=== PATIENT | male | born 1965 | race Caucasian/White ===

== ENCOUNTER 2021-02-23 06:57 | Outpatient (REF) | payer OTHER, SELFPAY ==
[2021-02-23 12:50] LABS: TSH reflex Free T4 4.25 uIU/mL (0.32-4.0)
[2021-02-23 13:28] LABS: Free T4 (Free Thyroxine) 0.75 ng/dL (0.71-1.85)
== END 2021-02-23 06:58 | disposition home or self-care (01) ==
LOC: HO.HMGCLDS 06:57
PROVIDERS: PCP Nurse Practitioner Family; Visit Provider Nurse Practitioner Family
DX: E03.9 Hypothyroidism, unspecified (principal)
CPT/HCPCS: 36415; 84439; 84443

== ENCOUNTER → 2021-04-07 15:49 | Outpatient (BNVA) | payer OTHER, SELFPAY | PROVIDERS: PCP Nurse Practitioner Family; Visit Provider Urology | DX: Z13.89 Encounter for screening for other disorder (principal) | CPT/HCPCS: Q3014 ==

== ENCOUNTER → 2021-06-02 09:09 | Outpatient (BNVA) | payer OTHER, SELFPAY | PROVIDERS: PCP Nurse Practitioner Family; Visit Provider Urology | DX: N52.9 Male erectile dysfunction, unspecified (principal); N43.40 Spermatocele of epididymis, unspecified | CPT/HCPCS: 99212 ==

== ENCOUNTER 2021-07-18 06:00 | Day surgery (SDC) | payer OTHER, SELFPAY ==
[2021-07-13 11:11] VITALS: BMI 31.6
[2021-07-18] VITALS (11 sets, daily range): BP systolic 122–149; BP diastolic 77–91; PULSE 49–75; RESP 16–20; TEMP 36–37; O2SAT 96–98
[2021-07-18] MEDS: Lactated Ringers 500 ML 20 ML IVCONT ×2 (06:45)
--- NOTE | 2021-07-18 07:34 | MHC.SHP ---
Pre-Procedural Eval Section A Date of Service: 07/18/21 Section B Chief Complaint: cyst of scrotum Details of Present Illness: Right epididymal cyst Relevant Social History: None Present Medications: see Short Stay Collaborative assessment Medical History: No relevant PMH History of Previous Operations: No relevant previous surgery Allergies: Allergies Allergy/AdvReac Type Severity Reaction Status Date / Time cisplatin [CISPLATIN] Allergy Severe ANAPHYLAXIS Verified 07/18/21 06:12 adhesive tape [ADHESIVE TAPE] Allergy Intermediate BLISTER/LESTER Verified 07/18/21 06:12 H Sulfa (Sulfonamide Allergy Unknown unknown Verified 07/18/21 06:12 Antibiotics) oxycodone [OXYCODONE] AdvReac Intermediate GI UPSET Verified 07/18/21 06:12 Review of Systems Sugical H&P ROS: Negative: Constitution, Cardiovascular, Respiratory, Neurological, Psychiatric, Hem-Onc, Allergic/Immunologic, Gastrointestinal, Genitourinary, Musculoskeletal, Integumentary, Endocrine and Eyes/Ears/Nose/Throat Exam Surgical H&P Exam: Normal: HEENT, Normal: Heart, Normal: Lungs, Normal: Extremities, Normal: Abdomen, Normal: Skin and Normal: Neurological Plan Diagnosis/Plan: Unchanged (Excision of right epididymal cyst) I have reviewed the history and physical and performed a pertinent physical examination on my patient. No changes have occurred unless specified.
--- NOTE | 2021-07-18 07:54 | P.CONAN_ITS ---
COUNTS INCLUDE 234 BEDS AT THE [facility] Active Problems Active Problems: All Active Problems (Updated 07/13/21 @ 11:13 by Kym tong RN) Hypothyroid (Acute) Right knee pain (Acute) Spermatocele (Acute) Erectile dysfunction (Acute) Past Medical History Medical History Cancer of tongue Hypothyroid Family History Family history of problems with anesthesia: No Surgical History Surgical History H/O colonoscopy Hx of tonsillectomy S/P cervical spinal fusion History of Problems with Anesthesia: No Social History Social History Alcohol intake: former Patient Tobacco Use Status: Tobacco use Unknown Advance Directives Information Provided: No Meds Allergies Allergy/AdvReac Type Severity Reaction Status Date / Time cisplatin [CISPLATIN] Allergy Severe ANAPHYLAXIS Verified 07/18/21 06:12 adhesive tape [ADHESIVE TAPE] Allergy Intermediate BLISTER/LESTER Verified 07/18/21 06:12 H Sulfa (Sulfonamide Allergy Unknown unknown Verified 07/18/21 06:12 Antibiotics) oxycodone [OXYCODONE] AdvReac Intermediate GI UPSET Verified 07/18/21 06:12 Active Medications: Current Medications Generic Name Dose Route Start Last Admin Trade Name Freq PRN Reason Stop Dose Admin Cefazolin Sodium/Dextrose 2 gm in 50 mls @ 100 mls/hr 07/18/21 07:35 Ancef IV 07/18/21 08:04 PREOP ONE Lactated Ringer's 500 mls @ 20 mls/hr 07/18/21 08:00 Lr IVCONT .Q24H [facility] Home Medications Medication Instructions Recorded Confirmed Last Taken Type levothyroxine 25 mcg capsule 25 mcg PO DAILY 06/02/21 Unknown History Exam Exam Date and Time: July 18, 2021 0754 Height,Weight and Vital Signs: Height 5 ft 9 in Weight 97.069 kg Last Vital Signs Temp 98.6 F 07/18/21 06:23 Pulse 59 07/18/21 06:23 Resp 16 07/18/21 06:23 BP 122/77 07/18/21 06:23 Pulse Ox 97 07/18/21 06:23 Airway Mallampati Class: II TM Dist: >3cm Neck ROM: Full Assessment and Plan Assessment Anesthesia Assessment: Anesthesia Plan Discussed and Chart Reviewed Final Anesthetic Review Family History of Problems with Anesthesia: No History of Problems with Anesthesia: No NPO: Yes ASA Class: III Final Preanesthetic Review: No Changes in Pt Med Stat, Meds/Allgs Chart Reviewed, Consent Obtained/Reviewed and Anes Risks/Benef Reviewed Patient Risk: Intermediate Procedure Risk: Low Assessment/Block/Sedation in SS: Assess/Block/Sedation-SS Anesthetic Plan Anesthetic Plan: GA Disposition: Standard PACU
--- NOTE | 2021-07-18 08:22 | P.OP_ITS ---
Operative Note Operative Note Date of Service: 07/18/21 Narrative: PreOperative Diagnosis: Right epididymal cyst Post Operative Diagnosis: Right head of epididymis cyst with calcifications scarring Procedure: Partial epididymectomy right side Surgeon: Dr Da Forbes Anesthesia: General Indications for procedure: Persistent pain on right head of the epididymis despite conservative therapy over a number of years. Calcification with small cyst to be noted on ultrasound. Recommendation for excision. Understands that this may not resolve painful episodes. Procedure: After informed consent was verified the patient was brought to the operating room and placed in a supine position. Anesthesia was administered per protocol. Patient was placed in a supine position and prepped and draped in sterile fashion. Safety pause time-out was performed. Local anesthetic infiltrated for 3 cm in a transverse fashion on the right hemiscrotum. Incision made through the skin down through the subcutaneous layer to the tunica vaginalis. The tunica was opened in the testicle was delivered. The head of the epididymis had palpable scarring and calcification. Careful dissection was performed isolating the perforating vessel coming from the cord and from the testis into the head of the epididymis. The this was divided after tying with 3-0 Vicryl suture. The epididymis head was then isolated with 3-0 Vicryl suture and removed and sent for specimen. Small oozing areas were cauterized. A small piece of Surgicel was placed in order to obtain full hemostasis. The tunica vaginalis was reapproximated with a running 3-0 Vicryl suture. The testicle was placed back in its dependent portion the scrotum. Deeper layers of the scrotal musculature were reapproximated using a running 3-0 Vicryl suture. Skin edges were reapproximated using interrupted 3-0 chromic. He tolerated procedure well was extubated in operating room transferred in st able condition to the recovery area Pathology: Epididymal head Drains: None
[2021-07-18] MEDS: fentaNYL citrate/PF 100 MCG/2 ML VIAL 50 MCG IVPUSH ×2 (08:44→08:57)
[2021-07-18] MEDS: traMADoL HCL 50 MG TABLET PO (08:49)
[2021-07-18] MEDS: Acetaminophen 325 MG TABLET 650 MG PO (08:51)
== END 2021-07-18 10:26 | disposition home or self-care (01) ==
PROVIDERS: PCP Nurse Practitioner Family; Visit Provider Urology
PROC: (CPT 54840; principal; 2021-07-18 07:30)
DX: N43.40 Spermatocele of epididymis, unspecified (principal); N52.9 Male erectile dysfunction, unspecified; Z79.899 Other long term (current) drug therapy; Z88.2 Allergy status to sulfonamides; Z88.8 Allergy status to other drugs, medicaments and biological substances; Z85.810 Personal history of malignant neoplasm of tongue
CPT/HCPCS: 54840; 88304; J0690; J1100; J2250; J2405; J3010

== ENCOUNTER → 2021-07-27 14:54 | Outpatient (BNVA) | payer OTHER, SELFPAY | PROVIDERS: PCP Nurse Practitioner Family; Visit Provider Urology | DX: N50.819 Testicular pain, unspecified (principal) | CPT/HCPCS: 99212 ==

== ENCOUNTER → 2021-08-17 15:30 | Outpatient (BNVA) | payer OTHER, SELFPAY | PROVIDERS: PCP Nurse Practitioner Family; Visit Provider Urology | DX: N50.819 Testicular pain, unspecified (principal) | CPT/HCPCS: 99212 ==

== ENCOUNTER 2021-09-01 09:17 | Outpatient (REF) | payer OTHER, SELFPAY ==
--- NOTE | ~2021-09-01 | XR_ITS ---
EXAMINATION: XR CERVICAL SPINE CLINICAL INFORMATION: Cervicalgia COMPARISON: None TECHNIQUE: 3 views of the cervical spine were obtained. FINDINGS: Status post cervical spine surgery with anterior fusion and discectomy at the C5-C6 level. No acute fracture is identified. No abnormal prevertebral soft tissue swelling is seen. There is approximately 2 mm of degenerative subluxation C3 anteriorly on C4. Marginal spurring is seen at multiple levels. There is mild narrowing of the C6-C7 disc space. Facet degenerative change with spurring and sclerosis is seen C3-C5 on the left and at the C3-C4 level on the right. Bilateral carotid artery calcification is present. XR/XR cervical spine 3V IMPRESSION: Multilevel degenerative change of the cervical spine. No acute cervical spine fracture or significant soft tissue swelling appreciated. Status post anterior fusion and discectomy at the C5-C6 level.
== END 2021-09-01 09:18 | disposition home or self-care (01) ==
LOC: HO.HMGCX 09:17
PROVIDERS: PCP Nurse Practitioner Family; Visit Provider Physician Assistant Medical
DX: M54.2 Cervicalgia (principal)
CPT/HCPCS: 72040

== ENCOUNTER 2021-09-29 12:07 | Emergency (ER) | payer OTHER, SELFPAY ==
--- NOTE | ~2021-09-29 | CT_ITS ---
EXAMINATION: CT ABDOMEN AND PELVIS WITH CONTRAST CLINICAL INFORMATION: Right-sided abdominal pain, ecchymosis. COMPARISON: None TECHNIQUE: Multidetector volumetric images were obtained from the superior aspect of the liver through the pubic symphysis following administration 85 mL of Omnipaque 350 intravenous contrast. Sagittal and coronal reformatted images were obtained on the technologist's workstation. Oral contrast: No This CT examination was performed using dose optimization techniques as appropriate, variously including the following: *Automated exposure control *Adjustment of mA and/or kV according to patient size (this includes techniques or standardized protocols for targeted exams where dose is matched to indication/reason for exam; i.e. extremities or head) *Use of iterative reconstruction technique DLP: 737 mGy-cm FINDINGS: LUNG BASES: The visualized lung bases are unremarkable. LIVER, GALLBLADDER, AND BILIARY TREE: The liver is normal in size, shape, and attenuation. No focal hepatic lesion or biliary ductal dilatation is present. The gallbladder is unremarkable with no evidence of radiopaque gallstones, gallbladder wall thickening, or obvious pericholecystic inflammatory changes. PANCREAS: Unremarkable. SPLEEN: Unremarkable. ADRENAL GLANDS: Unremarkable. KIDNEYS AND URETERS: The kidneys are normal in size, shape, and attenuation. There is mild hydroureteronephrosis with no obstructive radiopaque calculi. However there is a soft tissue mass in the right bladder at the right UVJ junction. There is mild mural thickening of the right distal ureter, best visualized on coronal projection image 67/5. There is mild right perinephric stranding. The left kidney is unremarkable. No hydronephrosis seen. BLADDER: There is a soft tissue mass right lateral bladder measuring 2.2 cm x 1.1 cm at the insertion of right distal ureter and a likely cause for hydronephrosis. GASTROINTESTINAL TRACT: The small and large bowel are unremarkable. The appendix is unremarkable. ABDOMINAL WALL: No significant hernia is appreciated. LYMPH NODES: Normal. VASCULAR: Unremarkable. PELVIC VISCERA: There are scattered phleboliths in the left pelvis. There is a large size lipoma of left iliacus muscle. It measured approximately 14 cm in length and 4.3 cm in AP dimension inferiorly. Right vasectomy libby is noted. OSSEOUS STRUCTURES: There is degenerative disc changes with vacuum disc phenomena and moderate ventral and mild posterior spondylosis L5-S1 disc level. No aggressive lytic or sclerotic process seen. CT/CT abdomen pelvis w con IMPRESSION: Right lateral bladder wall mass at the right UV junction resulting in mild hydroureteronephrosis. There is mild distal ureteral wall thickening as well. Recommend cystoscopy for further evaluation. Large left iliacus muscle lipoma. Fleischner guidelines were followed.
--- NOTE | ~2021-09-29 | US_ITS ---
EXAMINATION: US SCROTUM CLINICAL INFORMATION: Right scrotal pain x1 week COMPARISON: None TECHNIQUE: A sonogram of the scrotum was performed assessing carrington-scale appearance and color Doppler flow. Spectral Doppler analysis of the arterial and venous flow were performed in the testes bilaterally. FINDINGS: RIGHT: Right testicle measures 5.0 x 2.5 x 3.9 cm, volume 24.8 mL. No focal testicular parenchymal lesions are visualized. Spectral Doppler analysis of the arterial and venous flow is normal in the right testis. Right epididymal head is normal in size with a small anechoic cyst in the epididymal head measuring 0.9 x 0.6 0.9 cm with small septation. No right hydrocele or varicocele is seen. Right epididymal Doppler flow is normal. LEFT: Left testicle measures 5.2 x 2.8 x 3.4 cm, volume 25.6 mL. No focal testicular parenchymal lesions are visualized. Spectral Doppler analysis of the arterial and venous flow is normal in the left testis. Left epididymal head is normal in size. No left hydrocele or varicocele is seen. Left epididymal Doppler flow is normal. US/US scrotum IMPRESSION: Right epididymal head cyst. Otherwise unremarkable ultrasound scrotum exam.
--- NOTE | ~2021-09-29 | US_ITS ---
EXAMINATION: US SCROTUM CLINICAL INFORMATION: Right scrotal pain x1 week COMPARISON: None TECHNIQUE: A sonogram of the scrotum was performed assessing carrington-scale appearance and color Doppler flow. Spectral Doppler analysis of the arterial and venous flow were performed in the testes bilaterally. FINDINGS: RIGHT: Right testicle measures 5.0 x 2.5 x 3.9 cm, volume 24.8 mL. No focal testicular parenchymal lesions are visualized. Spectral Doppler analysis of the arterial and venous flow is normal in the right testis. Right epididymal head is normal in size with a small anechoic cyst in the epididymal head measuring 0.9 x 0.6 0.9 cm with small septation. No right hydrocele or varicocele is seen. Right epididymal Doppler flow is normal. LEFT: Left testicle measures 5.2 x 2.8 x 3.4 cm, volume 25.6 mL. No focal testicular parenchymal lesions are visualized. Spectral Doppler analysis of the arterial and venous flow is normal in the left testis. Left epididymal head is normal in size. No left hydrocele or varicocele is seen. Left epididymal Doppler flow is normal. US/US scrotum doppler IMPRESSION: Right epididymal head cyst. Otherwise unremarkable ultrasound scrotum exam.
[2021-09-29 12:10] VITALS: BP 169/97; PULSE 67; RESP 18; TEMP 36.7; O2SAT 100; BMI 30.2
--- NOTE | 2021-09-29 12:40 | ED_ITS ---
HPI - Abdominal Pain General Chief Complaint: Abdominal Pain Stated Complaint: abd pain Time Seen by Provider: 09/29/21 13:45 Source: patient Mode of arrival: ambulatory Limitations: no limitations History of Present Illness HPI narrative: Return for EMS with past medical history cure throat cancer and G-tube in the past presents to the ED for right lower quadrant abdominal pain for the past 4 days. Patient states no nausea or vomiting. Patient states last /4 days before started having lower abdominal pain that began this past Sunday, patient fell down stairs and hit right lower flank abdomen on and a guard rail and had huge bruise but had no pain. Patient was taking Motrin at that time for tooth, which might have gemma tge pain. and patient states hematoma actually improved. Patient states also some testicular discomfort off and on for 2 months since with surgical procedure for epidmidpimal cysts. Related Data Previous Rx's Medication Instructions Recorded bupropion HCl 150 mg tablet,12 hr 150 mg PO BID #180 tab 12/21/20 sustained-release sildenafil 100 mg tablet 100 mg PO DAILY PRN 30 Days #30 tab 06/02/21 tizanidine 2 mg tablet 2 mg PO BEDTIME PRN 30 Days #30 tab 07/17/21 levothyroxine 25 mcg capsule 25 mcg PO DAILY 90 Days #90 cap 08/21/21 cyclobenzaprine 5 mg tablet 5 mg PO BID PRN 14 Days #14 tab 09/07/21 ibuprofen 600 mg tablet 600 mg PO Q8H PRN #90 tab 09/07/21 tramadol 50 mg tablet 50 mg PO TID PRN #9 tab 09/29/21 Allergies Allergy/AdvReac Type Severity Reaction Status Date / Time cisplatin [CISPLATIN] Allergy Severe ANAPHYLAXIS Verified 09/29/21 12:10 adhesive tape [ADHESIVE TAPE] Allergy Intermediate BLISTER/LESTER Verified 09/29/21 12:10 H Sulfa (Sulfonamide Allergy Unknown unknown Verified 09/29/21 12:10 Antibiotics) oxycodone [OXYCODONE] AdvReac Intermediate GI UPSET Verified 09/29/21 12:10 Review of Systems Review of Systems Yes all other systems are reviewed and are negative Constitutional: Reports as per HPI and Reports no additional constitutional complaints Eyes: Reports as per HPI and Reports no additional eye complaints Reports system reviewed and no additional complaints, except as documented and Reports as per HPI Cardiovascular: Reports as per HPI and Reports no additional cardiovascular complaints Respiratory: Reports as per HPI and Reports no additional respiratory complaints Gastrointestinal: Reports as per HPI, Reports no additional gastrointestinal complaints and Reports abdominal pain (RLQ. RIght flank ecchymosis) Musculoskeletal: Reports no additional musculoskeletal complaints and Reports as per HPI Reports system reviewed and no additional complaints, except as documented and Reports as per HPI Psychiatric: Reports no additional psychiatric complaints and Reports as per HPI Physical Exam Vital Signs: Vital Signs: Last Vital Signs Temp 98.0 F 09/29/21 12:10 Pulse 64 09/29/21 16:39 Resp 15 09/29/21 16:39 BP 129/77 09/29/21 16:39 Pulse Ox 99 09/29/21 16:39 Body Mass Index 30.2 Const: General: cooperative, healthy appearing, comfortable, no acute distres s, well developed, alert, awake and Physically active; No acute distress Orientation/consciousness: patient oriented x3 HENMT: Head: Yes normal to inspection, Yes No palpable skull fracture present, Yes normocephalic, Yes atraumatic and No abrasion Eyes: General: appearance normal, both eyes and all related structures Neck: Neck: Yes normal visual inspection, Yes full ROM, Yes no lymphadenopathy, Yes no meningeal signs, Yes trachea midline, Yes supple, No anterior neck swelling and No tender Chest: Chest palpation & inspection: normal inspection of the chest and normal palpation of entire chest wall Resp: Effort & Inspection: normal respiratory effort and able to speak in complete sentences Auscultation: clear to auscultation bilaterally Cardio: Jugular venous distension: no JVD Heart sounds: S1 normal heart sound present and S2 normal heart sound present GI: Inspection: Yes normal to inspection Palpation (GI): Tenderness to palpation present (GI) (positive for lower right flank ecchymosis. ) in the RLQ, no guarding and not rigid : Other: Negative for penile discharge, penile lesions, testicular swelling/tenderness, or blurred from urethral meatus. General: Yes no CVA tenderness Penis: normal penis and circumcised Scrotum: scrotum normal Testes: Testes normal and testicular lie normal Back/Spine/Pelvis: Back: no CVA tenderness Back/spine/pelvis image: 1. Might lower flank positive for ecchymosis/improving hematoma. states patient has bruised actually been improved since fall. not Tender an area of bruise. Skin: General skin exam: no rashes or lesions noted and elasticity normal Neuro: General: patient oriented x3, gait normal, no meningeal signs and CN's II-XI intact bilaterally Cranial nerves: Yes CN's II-XII intact bilaterally Extrem: General: Yes normal to inspection and Yes full ROM Psych: Appearance: grossly normal, well kempt and not disheveled Course Course Course Narrative: Patient states having small drops of 2 past couple days and constipated. Will do KUB. Due to patient have right lower quadrant tenderness and flank ecchymosis patient will be sent for abdominal CT scan to rule out any trauma or appendicitis. Patient denies any chest pain and headache exam is normal. No need for chest or head the cervical spine imaging. Patient denies any dizziness nausea, vomiting, headache, head trauma, or taking any blood thinners. Reevaluation(s) Reevaluation #1: Scrotal ultrasound shows right epididymal cyst. Abdominal CT scan shows bladder mass. Patient made aware of bladder mass and informed to follow-up with his urologist. Patient states his urologist Dr. Forbes and he will call tomorrow for follow-up. UA negative for UTI. Kidney functions normal. Rest of CT scan negative for appendicitis any medical/surgical emergency. Time: 16:34 MDM - Abdominal Pain MDM Narrative Medical decision making narrative: Bladder mass Lab Data Result diagrams: 09/29/21 12:34 09/29/21 12:34 Labs: Lab Results 09/29/21 09/29/21 09/29/21 Range/Units 12:34 12:34 12:34 WBC 14.5 H (4.8-10.8) X10*3/uL RBC 4.23 L (4.60-5.80) X10*6/uL Hgb 14.3 (14.0-18.0) g/dl Hct 39.1 L (42.0-52.0) % MCV 92.4 (80.0-98.0) fL MCH 33.8 H (27.0-33.0) pg MCHC 36.6 H (31.0-36.0) g/dl RDW 11.7 (11.0-16.0) % Plt Count 244 (160-400) X10*3/uL MPV 9.7 (9.4-12.4) fL Immature Gran % (Auto) 0.6 H (0.0-0.4) % Neut % (Auto) 76.3 H (45-73) % Lymph % (Auto) 13.1 L (20-40) % [place] % (Auto) 8.7 (2-11) % Eos % (Auto) 1.0 (0-4) % Baso % (Auto) 0.3 (0-2) % Lymph # (Auto) 1.9 (1.2-4.9) X10*3/uL [place] # (Auto) 1.3 H (0.1-1.2) X10*3/uL Eos # (Auto) 0.2 (0.0-0.4) X10*3/uL Baso # (Auto) 0.1 (0.0-0.2) X10*3/uL Abs Immat Gran (auto) 0.09 H (0.00-0.03) X10*3/uL Absolute Neuts (auto) 11.1 H (2.0-8.3) x10*3/uL Absolute Nucleated RBC 0.000 (0.0-0.012) X10*3/uL Nucleated RBC % (auto) 0.0 (0.0-0.2) /100WBC PT 12.7 (9.9-13.0) SEC INR 1.1 (0.9-1.1) APTT 33.9 (24.1-38.0) SEC Sodium 136 (135-145) mmol/L Potassium 3.6 (3.3-5.1) mmol/L Chloride 101 (96-108) mmol/L Carbon Dioxide 24 (22-29) mmol/L Anion Gap 15 (12-20) BUN 14 (9-16) mg/dL Creatinine 1.39 (0.5-1.4) mg/dL Estim Creat Clear Calc 68.4 Estimated GFR 53 Random Glucose 109 (60-115) mg/dL Calcium 9.9 (8.4-10.2) mg/dL Total Bilirubin 0.8 (0.0-1.0) mg/dL Direct Bilirubin 0.3 (0.0-0.5) mg/dL AST 30 (5-37) U/L ALT 30 (0-40) U/L Alkaline Phosphatase 79 (39-117) U/L Total Protein 7.2 (6.5-8.0) g/dL Albumin 4.5 (3.5-5.0) g/dL Lipase 15 (8-78) U/L Urine Color Urine Appearance Urine pH (5.0-8.0) Ur Specific Kathryn (1.005-1.025) Urine Protein (NEG-TRACE) MG/DL Urine Glucose (UA) (NEG) MG/DL Urine Ketones (NEG) MG/DL Urine Blood (NEG) Urine Nitrite (NEG) Ur Leukocyte Esterase (NEG) Urine RBC (0) /HPF Urine WBC (0-4) /HPF Ur Squamous Epith Cells /LPF Urine Bacteria /LPF 09/29/21 Range/Units 12:34 WBC (4.8-10.8) X10*3/uL RBC (4.60-5.80) X10*6/uL Hgb (14.0-18.0) g/dl Hct (42.0-52.0) % MCV (80.0-98.0) fL MCH (27.0-33.0) pg MCHC (31.0-36.0) g/dl RDW (11.0-16.0) % Plt Count (160-400) X10*3/uL MPV (9.4-12.4) fL Immature Gran % (Auto) (0.0-0.4) % Neut % (Auto) (45-73) % Lymph % (Auto) (20-40) % [place] % (Auto) (2-11) % Eos % (Auto) (0-4) % Baso % (Auto) (0-2) % Lymph # (Auto) (1.2-4.9) X10*3/uL [place] # (Auto) (0.1-1.2) X10*3/uL Eos # (Auto) (0.0-0.4) X10*3/uL Baso # (Auto) (0.0-0.2) X10*3/uL Abs Immat Gran (auto) (0.00-0.03) X10*3/uL Absolute Neuts (auto) (2.0-8.3) x10*3/uL Absolute Nucleated RBC (0.0-0.012) X10*3/uL Nucleated RBC % (auto) (0.0-0.2) /100WBC PT (9.9-13.0) SEC INR (0.9-1.1) APTT (24.1-38.0) SEC Sodium (135-145) mmol/L Potassium (3.3-5.1) mmol/L Chloride (96-108) mmol/L Carbon Dioxide (22-29) mmol/L Anion Gap (12-20) BUN (9-16) mg/dL Creatinine (0.5-1.4) mg/dL Estim Creat Clear Calc Estimated GFR Random Glucose (60-115) mg/dL Calcium (8.4-10.2) mg/dL Total Bilirubin (0.0-1.0) mg/dL Direct Bilirubin (0.0-0.5) mg/dL AST (5-37) U/L ALT (0-40) U/L Alkaline Phosphatase (39-117) U/L Total Protein (6.5-8.0) g/dL Albumin (3.5-5.0) g/dL Lipase (8-78) U/L Urine Color YELLOW Urine Appearance CLEAR Urine pH 7.5 (5.0-8.0) Ur Specific Kathryn 1.015 (1.005-1.025) Urine Protein TRACE (NEG-TRACE) MG/DL Urine Glucose (UA) NEG (NEG) MG/DL Urine Ketones >=80 (NEG) MG/DL Urine Blood TRACE (NEG) Urine Nitrite NEG (NEG) Ur Leukocyte Esterase NEG (NEG) Urine RBC 1-4 (0) /HPF Urine WBC 0 (0-4) /HPF Ur Squamous Epith Cells NONE /LPF Urine Bacteria NONE /LPF Discharge Plan Discharge Clinical Impression: Mass of bladder Patient Disposition: Home, Self-Care Instructions: Abdominal Pain (ED) Additional Instructions: Your abdominal CT scan shows bladder mass. Your ultrasound shows epidermidis cyst. Newly follow-up with Urology for the bladder mass. Return to the ED for any worsening abdominal pain, nausea, vomiting, flank pain, fever, chills, hematuria, dysuria, weakness, dizziness, testicular pain, penile discharge, penile lesions, or any other concerning symptoms. Stay away from NSAIDs. Prescriptions: New tramadol 50 mg tablet 50 mg PO TID PRN (Reason: pain) Qty: 9 RF: 0 No Action bupropion HCl 150 mg tablet sustained-release 12 hr 150 mg PO BID Qty: 180 RF: 1 tizanidine 2 mg tablet 2 mg PO BEDTIME PRN (Reason: for muscle spasm) 30 Days Qty: 30 RF: 2 levothyroxine 25 mcg capsule 25 mcg PO DAILY 90 Days Qty: 90 RF: 1 ibuprofen 600 mg tablet 600 mg PO Q8H PRN (Reason: pain) Qty: 90 RF: 0 cyclobenzaprine 5 mg tablet 5 mg PO BID PRN (Reason: muscle spasm) 14 Days Qty: 14 RF: 0 sildenafil 100 mg tablet 100 mg PO DAILY PRN (Reason: sexual activity) 30 Days Qty: 30 RF: 1 Referrals: Da Forbes MD [Physician] - 2 days (Bladder mass) Stand Alone Forms: Work/School Release Interventions: ED Discharge Assessment Last Done: 09/29/21 16:55 Discharge Date/Time: 09/29/21 16:56 Print Language: Khmer [facility] Past Medical History Medical History Cancer of tongue Hypothyroid Surgical History H/O colonoscopy Hx of tonsillectomy S/P cervical spinal fusion Family History Family History Paternal Uncle Substance use disorder Paternal Uncle Substance use disorder Paternal Uncle Substance use disorder Paternal Uncle Substance use disorder Sister Substance use disorder Other Mental health disorder Social History Social History Housing: House Alcohol intake: former Patient Tobacco Use Status: Former Tobacco user Advance Directives: No Advance Directives Information Provided: Yes Current occupational status: employed
[2021-09-29] MEDS: 0.9 % Sodium Chloride 1,000 ML 999 ML IV (12:42)
[2021-09-29] MEDS: Ketorolac Tromethamine 15 MG/ML VIAL 30 MG IVPUSH (12:42)
[2021-09-29 12:45] LABS: MANUAL DIFF FLAG NO
[2021-09-29 12:46] LABS: Appearance Urine CLEAR; Color Urine YELLOW; Glucose Urine UA NEG (NEG); Leukocyte Esterase Urine NEG (NEG); Nitrite Urine NEG (NEG); PH 7.5 (5.0-8.0); Specific Gravity - Urine 1.015 (1.005-1.025); UACC Culture Trigger NO; Urine Blood TRACE (NEG); Urine Ketones >=80 MG/DL (NEG); Urine Protein TRACE MG/DL (NEG-TRACE)
[2021-09-29 12:47] LABS: Basophils Absolute Auto 0.1 X10*3/uL (0.0-0.2); Basophils Percent Auto 0.3 % (0-2); Eosinophils Absolute Auto 0.2 X10*3/uL (0.0-0.4); Hematocrit 39.1 % (42.0-52.0); Hemoglobin 14.3 g/dl (14.0-18.0); Imm Gran Abs Auto 0.09 X10*3/uL (0.00-0.03); Imm Gran Pct Auto 0.6 % (0.0-0.4); Lymphocytes Absolute Auto 1.9 X10*3/uL (1.2-4.9); Lymphocytes Percent Auto 13.1 % (20-40); Mean Corpuscular HGB Conc 36.6 g/dl (31.0-36.0); Mean Corpuscular Hemoglobin 33.8 pg (27.0-33.0); Mean Corpuscular Volume 92.4 fL (80.0-98.0); Mean Platelet Volume 9.7 fL (9.4-12.4); Monocytes Absolute Auto 1.3 X10*3/uL (0.1-1.2); Monocytes Percent Auto 8.7 % (2-11); Neutrophils Absolute Auto 11.1 x10*3/uL (2.0-8.3); Neutrophils Percent Auto 76.3 % (45-73); Platelet Count 244 X10*3/uL (160-400); Red Blood Count 4.23 X10*6/uL (4.60-5.80); Red Cell Distribution Width 11.7 % (11.0-16.0); White Blood Count 14.5 X10*3/uL (4.8-10.8)
[2021-09-29 12:52] LABS: INTERNATIONAL NORM RATIO 1.1 (0.9-1.1); Prothrombin Time 12.7 SEC (9.9-13.0)
[2021-09-29 12:54] LABS: Partial Thromboplastin Time 33.9 SEC (24.1-38.0)
[2021-09-29 12:55] LABS: WBC Urine 0 /HPF (0-4)
[2021-09-29 13:05] LABS: Alanine Aminotransferase 30 U/L (0-40); Albumin Level 4.5 g/dL (3.5-5.0); Alkaline Phosphatase 79 U/L (39-117); Anion Gap 15 (12-20); Aspartate Amino Transferase 30 U/L (5-37); Bilirubin Direct 0.3 mg/dL (0.0-0.5); Bilirubin Total 0.8 mg/dL (0.0-1.0); Blood Urea Nitrogen 14 mg/dL (9-16); Calcium 9.9 mg/dL (8.4-10.2); Carbon Dioxide 24 mmol/L (22-29); Chloride 101 mmol/L (96-108); Creatinine Clr Calc Pharmacy 68.4; Estimated Glomerular Filt Rate 53; Glucose Random 109 mg/dL (60-115); Lipase 15 U/L (8-78); Potassium 3.6 mmol/L (3.3-5.1); Sodium 136 mmol/L (135-145); Total Protein 7.2 g/dL (6.5-8.0)
[2021-09-29] MEDS: iohexoL 350 MG/ML 100 ML INFUS..BTL IV (14:01)
[2021-09-29 16:39] VITALS: BP 129/77; PULSE 64; RESP 15; O2SAT 99
== END 2021-09-29 16:56 | disposition home or self-care (01) ==
PROVIDERS: Physician Assistant; Emergency Provider Emergency Medicine; PCP Nurse Practitioner Family
DX: N32.89 Other specified disorders of bladder (principal); N13.30 Unspecified hydronephrosis; R10.31 Right lower quadrant pain; I10 Essential (primary) hypertension
CPT/HCPCS: 36415; 74177; 76870; 80053; 81001; 82248; 83690; 85025; 85610; 85730; 93975; 96361; 96374; 99284; J1885; Q9967

== ENCOUNTER 2021-10-10 06:17 | Outpatient (REF) | payer OTHER, SELFPAY ==
[2021-10-10 07:23] LABS: Alanine Aminotransferase 20 U/L (0-40); Albumin Level 4.2 g/dL (3.5-5.0); Alkaline Phosphatase 69 U/L (39-117); Anion Gap 11 (12-20); Aspartate Amino Transferase 21 U/L (5-37); Bilirubin Total 0.5 mg/dL (0.0-1.0); Blood Urea Nitrogen 11 mg/dL (9-16); Calcium 9.5 mg/dL (8.4-10.2); Carbon Dioxide 26 mmol/L (22-29); Chloride 109 mmol/L (96-108); Cholesterol 194 mg/dL; Estimated Glomerular Filt Rate > 60; Glucose Fasting 111 mg/dL (60-99); HDL Cholesterol 37 mg/dL; LDL Cholesterol Calculated 135 mg/dl; Potassium 4.2 mmol/L (3.3-5.1); Sodium 142 mmol/L (135-145); Total Protein 6.7 g/dL (6.5-8.0); Triglycerides 111 mg/dL
[2021-10-10 07:44] LABS: Prostate Specific Antigen Scr 0.27 ng/mL (<0.05-4.0); TSH reflex Free T4 3.87 uIU/mL (0.32-4.0)
[2021-10-10 08:02] LABS: Appearance Urine CLEAR; Color Urine YELLOW; Glucose Urine UA NEG (NEG); Leukocyte Esterase Urine NEG (NEG); Nitrite Urine NEG (NEG); Urine Blood NEG (NEG); Urine Ketones NEG (NEG); Urine Protein NEG (NEG-TRACE)
== END 2021-10-10 06:18 | disposition home or self-care (01) ==
LOC: HO.LAB 06:17
PROVIDERS: PCP Nurse Practitioner Family; Visit Provider Nurse Practitioner Family
DX: E03.9 Hypothyroidism, unspecified (principal); Z00.00 Encounter for general adult medical examination without abnormal findings; Z12.5 Encounter for screening for malignant neoplasm of prostate
CPT/HCPCS: 36415; 80053; 80061; 81003; 84153; 84443

== ENCOUNTER 2021-10-13 10:50 | Outpatient (REF) | payer OTHER, SELFPAY ==
[2021-10-13 16:35] LABS: Urine Cytology See Pathology rpt
== END 2021-10-13 10:51 | disposition home or self-care (01) ==
LOC: HO.LAB 10:50
PROVIDERS: PCP Nurse Practitioner Family; Visit Provider Urology
DX: N13.30 Unspecified hydronephrosis (principal); N32.89 Other specified disorders of bladder
CPT/HCPCS: 52000; 88112; 99212

== ENCOUNTER 2021-11-11 06:03 | Outpatient (REF) | payer OTHER, SELFPAY ==
[2021-11-11 07:35] LABS: Blood Urea Nitrogen 15 mg/dL (9-16); Estimated Glomerular Filt Rate > 60
== END 2021-11-11 06:04 | disposition home or self-care (01) ==
LOC: HO.LAB 06:03
PROVIDERS: PCP Nurse Practitioner Family; Visit Provider Urology
DX: N13.30 Unspecified hydronephrosis (principal)
CPT/HCPCS: 36415; 82565; 84520

== ENCOUNTER 2021-11-14 07:51 | Outpatient (REF) | payer OTHER, SELFPAY ==
--- NOTE | ~2021-11-14 | CT_ITS ---
EXAMINATION: CT ABDOMEN AND PELVIS WITHOUT AND WITH CONTRAST CLINICAL INFORMATION: Gross hematuria. COMPARISON: CT abdomen/pelvis dated from 09/29/2021. TECHNIQUE: Noncontrast CT of the abdomen and pelvis is performed followed by split bolus contrast-enhanced images using 85 mL Omnipaque 350 contrast.? Postcontrast imaging is performed during the combined nephrogram and excretion phase. Sagittal and coronal reformatted images were obtained on the technologist's workstation for both the precontrast and postcontrast phases. This CT examination was performed using dose optimization techniques as appropriate, variously including the following: *Automated exposure control *Adjustment of mA and/or kV according to patient size (this includes techniques or standardized protocols for targeted exams where dose is matched to indication/reason for exam; i.e. extremities or head) *Use of iterative reconstruction technique DLP: 545 mGy-cm FINDINGS: LUNG BASES: Evaluation of pulmonary nodules is limited by motion. No focal consolidation or pleural effusion. LIVER, GALLBLADDER, AND BILIARY TREE: The liver is normal in size, shape, and attenuation. Redemonstration of a tiny calcification adjacent to the falciform ligament (8:22). No focal hepatic lesion or biliary ductal dilatation is present. The gallbladder is unremarkable with no evidence of radiopaque gallstones, gallbladder wall thickening, or obvious pericholecystic inflammatory changes. PANCREAS: Unremarkable. SPLEEN: Unremarkable. ADRENAL GLANDS: Unremarkable. KIDNEYS AND URETERS: Special attention was placed to the kidneys. The right kidney measures 10.4 cm in maximum length and the left kidney measures 10.1 cm in maximum length. There is no nephrolithiasis nor hydroureteronephrosis. There are no suspicious focal parenchymal lesions. The opacified segments of the collecting systems and ureters demonstrate no suspicious filling defects or obstructive lesions. BLADDER: A previously described mass in the right lateral urinary bladder is not visualized in this study. No focal abnormalities. GASTROINTESTINAL TRACT: The small and large bowel are unremarkable. The appendix is unremarkable. ABDOMINAL WALL: No significant hernia is appreciated. LYMPH NODES: No lymphadenopathy by size criteria. VASCULAR: Unremarkable. PELVIC VISCERA: Prostatic calcifications and pelvic phleboliths are redemonstrated. OSSEUS STRUCTURES: No acute or aggressive osseous abnormalities. Thoracolumbar spondylosis. Redemonstration of a lipoma in the left inner thigh. CT/CT urogram IMPRESSION: No acute abnormalities to explain the patient's hematuria. However, some segments of the distal ureters and urinary bladder are not entirely opacified limiting the evaluation of small mucosal abnormalities. If indicated, consider further correlation with cystoscopy.
[2021-11-14] MEDS: iohexoL 350 MG/ML 100 ML INFUS..BTL IV (08:37)
== END 2021-11-14 07:52 | disposition home or self-care (01) ==
LOC: HO.CT 07:51
PROVIDERS: PCP Nurse Practitioner Family; Visit Provider Urology
DX: R31.0 Gross hematuria (principal)
CPT/HCPCS: 74178; Q9967

== ENCOUNTER → 2022-02-15 08:28 | Outpatient (BNVA) | payer OTHER, SELFPAY | PROVIDERS: PCP Nurse Practitioner Family; Visit Provider Urology | DX: N52.9 Male erectile dysfunction, unspecified (principal) | CPT/HCPCS: 99212 ==

== ENCOUNTER 2022-03-23 08:53 | Outpatient (REF) | payer OTHER, SELFPAY ==
--- NOTE | ~2022-03-23 | XR_ITS ---
EXAMINATION: XR FOOT, LEFT CLINICAL INFORMATION: Left foot injury. COMPARISON: None TECHNIQUE: AP, lateral, and oblique views of the left foot. FINDINGS: There is a hallux valgus deformity. Associated overlap of the first and second digits is seen. Mild first metatarsophalangeal degenerative joint changes are seen as well as soft tissue thickening along the medial margin of the first metatarsal head. There is no acute fracture or dislocation. The tarsal bones are normally aligned. Mild soft tissue swelling is seen lateral to the fifth metatarsophalangeal joint. XR/XR foot LT min 3V IMPRESSION: 1. Hallux valgus deformity with associated degenerative/changes. 2. Mild soft tissue swelling lateral to the fifth metatarsophalangeal joint without acute underlying osseous abnormality. Correlate with physical exam.
== END 2022-03-23 08:54 | disposition home or self-care (01) ==
LOC: HO.HMGCX 08:53
PROVIDERS: PCP Nurse Practitioner Family; Visit Provider Internal Medicine
DX: S99.922D Unspecified injury of left foot, subsequent encounter (principal)
CPT/HCPCS: 73630

== ENCOUNTER 2022-04-15 14:09 | Outpatient (REF) | payer OTHER, SELFPAY ==
--- NOTE | ~2022-04-15 | XR_ITS ---
EXAMINATION: XR FOOT, RIGHT CLINICAL INFORMATION: Pain. COMPARISON: None TECHNIQUE: AP, lateral, and oblique views of the right foot. FINDINGS: There is mild hallux valgus deformity first MTP joint. No visible acute fracture or dislocation involving the right foot. The joint spaces are maintained normal. Mild soft tissue swelling first MTP joint is noted. XR/XR foot RT 2V IMPRESSION: Mild hallux valgus deformity first MTP joint. No visible acute fracture or dislocation seen.
== END 2022-04-15 14:10 | disposition home or self-care (01) ==
LOC: HO.HMGCX 14:09
PROVIDERS: PCP Nurse Practitioner Family; Visit Provider Nurse Practitioner Acute Care
DX: M79.671 Pain in right foot (principal)
CPT/HCPCS: 73620

== ENCOUNTER 2022-04-18 16:51 | Emergency (ER) | payer OTHER, SELFPAY ==
--- NOTE | ~2022-04-18 | XR_ITS ---
EXAMINATION: XR ANKLE, RIGHT CLINICAL INFORMATION: Twisted ankle. Pain. COMPARISON: None TECHNIQUE: AP, lateral, and mortise views of the right ankle. FINDINGS: There is moderate lateral malleolar soft tissue swelling. The ankle mortise and subtalar joints are maintained normal. There is a small bone density adjacent to talo-fibular joint question an enthesophyte or old healed fracture with callus formation. Mild degenerative osteophytes also seen along the medial talotibial junction XR/XR ankle RT 2V IMPRESSION: Old healed fracture fragment versus an osteophyte at talo-fibular junction. There is an osteophyte along the talotibial junction is well There is moderate lateral malleolar soft tissue swelling. No visible acute fracture seen. This could be secondary to ligamentous injury.
[2022-04-18 17:06] VITALS: BP 125/72; PULSE 85; RESP 18; TEMP 36.4; O2SAT 97; BMI 29.5
--- NOTE | 2022-04-18 18:19 | ED.LOWEXIN ---
HPI - Extremity Injury (Lower) General Chief Complaint: Extremity Injury, Lower Stated Complaint: swollen foot Time Seen by Provider: 04/18/22 17:51 Source: patient Mode of arrival: ambulatory History of Present Illness HPI Narrative: 56-year-old male with a past medical history of tongue cancer '14, hypothyroid, presenting to the ED complaining of right ankle/foot pain and swelling s/p twisting injury 4 days ago. Patient admits was seen at walk-in clinic Sunday morning after injury had x-rays however has been unable to get report. Admits swelling and pain has been worsening. Denies numbness, tingling, weakness, head injury, LOC, fever MD complaint: ankle injury and foot injury Onset (ago): day(s) Related Data Previous Rx's Medication Instructions Recorded tizanidine 2 mg tablet 2 mg PO BEDTIME PRN for muscle 07/17/21 spasm 30 days #30 tabs cyclobenzaprine 5 mg tablet 5 mg PO BID PRN muscle spasm 2 09/07/21 weeks #14 tabs bupropion HCl 150 mg tablet,12 hr 150 mg PO BID #180 tabs 10/03/21 sustained-release levothyroxine 25 mcg capsule 25 mcg PO DAILY 90 days #114 caps 01/04/22 sildenafil 100 mg tablet 100 mg PO DAILY PRN sexual 02/15/22 activity 30 days #30 tabs ibuprofen 600 mg tablet 600 mg PO Q8H PRN pain #90 tabs 04/15/22 Allergies Allergy/AdvReac Type Severity Reaction Status Date / Time cisplatin [CISPLATIN] Allergy Severe ANAPHYLAXIS Verified 04/18/22 17:05 adhesive tape [ADHESIVE TAPE] Allergy Intermediate BLISTER/LESTER Verified 04/18/22 17:05 H Sulfa (Sulfonamide Allergy Unknown unknown Verified 04/18/22 17:05 Antibiotics) oxycodone [OXYCODONE] AdvReac Intermediate GI UPSET Verified 04/18/22 17:05 Review of Systems Review of Systems: Constitutional: No Fever, No Chills ENT/Mouth: No Ear Pain, No Nasal Congestion, No sore throat, No Rhinorrhea, No Swallowing Difficulty Cardiovascular: No Chest Pain, No SOB Respiratory: No Cough, No Sputum Gastrointestinal: No Nausea, No Vomiting, No Diarrhea, No Constipation, No Abdominal pain Genitourinary: No Dysuria, No Urinary Frequency, No Flank Pain Musculoskeletal: + joint pain, No Myalgias, + Joint Swelling Skin: No Skin Lesions, No rash Neuro: No Weakness, No Numbness, No Paresthesias, No LOC or head injury Yes all other systems are reviewed and are negative Neurologic: Denies Sensory deficit (Neuro) [facility] Past Medical History Attestation statement: The following information was validated with the patient. Medical History Cancer of tongue Hypothyroid Surgical History H/O colonoscopy Hx of tonsillectomy S/P cervical spinal fusion Family History Family History Paternal Uncle Substance use disorder Paternal Uncle Substance use disorder Paternal Uncle Substance use disorder Paternal Uncle Substance use disorder Sister Substance use disorder Other Mental health disorder Social History Social History Housing: House Alcohol intake: former Patient Tobacco Use Status: Former Tobacco user e-Cigarette/Vaping Use: Never Used Second Hand Smoke Exposure: No Advance Directives: No Advance Directives Information Provided: No Current occupational status: employed Physical Exam Vital Signs: Vital Signs: Last Vital Signs Temp 97.6 F 04/18/22 17:06 Pulse 85 04/18/22 17:06 Resp 18 04/18/22 17:06 BP 125/72 04/18/22 17:06 Pulse Ox 97 04/18/22 17:06 O2 Del Method 04/18/22 17:06 BMI result Body Mass Index 29.5 Const: General: cooperative, healthy appearing and no acute distress Orientation/consciousness: patient oriented x3 Limitations: no limitations HEENT: Head: Yes normal to inspection and Yes atraumatic Ears: hearing grossly normal bilaterally General nose exam: Normal external nose present Face and sinus: Yes normal facial exam Eyes: General: appearance normal, both eyes and all related structures EOM: EOMs intact bilaterally Neck: Neck: Yes normal visual inspection and Yes no meningeal signs Resp: Effort & Inspection: normal respiratory effort and no respiratory distress Cardio: Rate: regular rate Heart sounds: S1 normal heart sound present and S2 normal heart sound present Peripheral pulses: dorsalis pedis present Skin: Rashes: no rashes Wounds: no wounds Neuro: General: patient oriented x3, tone normal and no meningeal signs Gait exam (Neuro): Assisted gait required Gait assisted method: walking stick Sensory Exam: No Sensory deficit (Neuro) Extrem: Other: Right ankle and foot with noted swelling and tenderness to palpation greatest to lateral aspect. ROM intact mildly limited secondary to pain/swelling. Neurovascular intact distally. Sensation intact to light touch. Evidence of cellulitis or streaking. Knee/tib/fib nontender Course Course Course Narrative: > results discussed with patient. Patient placed in walking boot and supplied with crutches to be nonweightbearing until he follows up with orthopedic MDM - Extremity Injury (Lower) MDM Narrative Medical decision making narrative: 56-year-old male with a past medical history of tongue cancer '14, hypothyroid, presenting to the ED complaining of right ankle/foot pain and swelling s/p twisting injury 4 days ago. On exam vital signs stable, NAD/nontoxic-appearing, physical exam as above. Concern for ankle/foot fracture versus sprain. Low concern for DVT Plan: X-ray Differential Diagnosis Differential diagnosis: Likely ankle sprain and strain, fracture of toe and ankle fracture Medical Records Attestation: I reviewed the patient's medical records. Lab Data Attestation: I reviewed the patient's lab results. Procedures Orthopedic Splinting/Casting Injury #1: Side: right Lower Extremity Injury Location: ankle Lower Extremity Immobilizer: boot orthosis Other Orthopedic Equipment: crutches Discharge Plan Discharge Clinical Impression: Fracture of distal end of fibula Patient Disposition: Home, Self-Care Instructions: Ankle Fracture (ED) Additional Instructions: Your foot x-ray is unremarkable. ankle x-ray shows bony fragments at your lateral side suggestive of a fracture. Please keep walking boot on, dry, and clean, avoid weight-bearing/you should be nonweightbearing on your right lower extremity until you follow-up with Orthopedics. Use crutches Call orthopedics for follow-up Ice, elevate, take Tylenol and Motrin for pain/swelling Prescriptions: No Action tizanidine 2 mg tablet 2 mg PO BEDTIME PRN (Reason: for muscle spasm) 30 Days Qty: 30 2RF bupropion HCl 150 mg tablet sustained-release 12 hr 150 mg PO BID Qty: 180 1RF cyclobenzaprine 5 mg tablet 5 mg PO BID PRN (Reason: muscle spasm) 14 Days Qty: 14 0RF levothyroxine 25 mcg capsule 25 mcg PO DAILY 90 Days Qty: 114 0RF Rx Instructions: one tab daily, except on sunday and take an extra tab ibuprofen 600 mg tablet 600 mg PO Q8H PRN (Reason: pain) Qty: 90 0RF sildenafil 100 mg tablet 100 mg PO DAILY PRN (Reason: sexual activity) 30 Days Qty: 30 1RF Rx Instructions: administer 60 minutes before intended activity Referrals: Funmi Aparicio PA-C [Physician Biomedical Engineering Technologist] - 1 week Stand Alone Forms: Work/School Release
== END 2022-04-18 19:06 | disposition home or self-care (01) ==
PROVIDERS: Emergency Provider Internal Medicine; PCP Nurse Practitioner Family
DX: S82.401A Unspecified fracture of shaft of right fibula, initial encounter for closed fracture (principal); X50.1XXA Overexertion from prolonged static or awkward postures, initial encounter; Y93.9 Activity, unspecified; Y92.9 Unspecified place or not applicable; Y99.9 Unspecified external cause status
CPT/HCPCS: 73600; 99282; 99283

== ENCOUNTER 2022-05-18 08:53 | Outpatient (REF) | payer OTHER, SELFPAY ==
--- NOTE | ~2022-05-18 | XR_ITS ---
EXAMINATION: XR HAND/WRIST, LEFT CLINICAL INFORMATION: Left wrist pain. COMPARISON: Left wrist radiographs dated 06/21/2019. TECHNIQUE: AP, oblique, and lateral views of the left hand and wrist. FINDINGS: No acute fracture or dislocation. Marginal osteophytes at the distal radial ulnar joint. Mild joint space narrowing with marginal osteophytes scattered throughout the carpal bones, most prominent at the triscaphe joint and slightly increased when compared to the prior radiographs. Mild joint space narrowing with tiny marginal osteophytes scattered throughout the metacarpophalangeal and interphalangeal joints. Along the palmar aspect of the 3rd middle phalangeal base, there is a lytic, expansile osseous lesion measuring up to 1.5 cm in craniocaudal dimension. Minimal associated periosteal reaction. No additional lytic or blastic osseous lesion. XR/XR hand wrist LT IMPRESSION: 1. Osteoarthritis scattered throughout the carpus as well as throughout the metacarpophalangeal and interphalangeal joints, slightly progressed when compared to prior radiographs from 2019. 2. No acute fracture or dislocation. 3. Expansile lytic lesion along the palmar aspect of the 3rd middle phalangeal base measuring up to 1.5 cm. Findings are nonspecific and differential diagnosis includes an enchondroma. If there is focal pain or significant increase in size, chondrosarcoma could be considered. Alternatively, an infectious process could be considered in the appropriate clinical setting.
== END 2022-05-18 08:54 | disposition home or self-care (01) ==
LOC: HO.HMGCX 08:53
PROVIDERS: PCP Nurse Practitioner Family; Visit Provider Internal Medicine
DX: M25.532 Pain in left wrist (principal); M25.432 Effusion, left wrist
CPT/HCPCS: 73110; 73130

== ENCOUNTER → 2023-02-15 08:26 | Outpatient (BNVA) | payer OTHER, SELFPAY | PROVIDERS: PCP Nurse Practitioner Family; Visit Provider Urology | DX: N48.6 Induration penis plastica (principal) | CPT/HCPCS: 99212 ==

== ENCOUNTER 2023-04-18 09:50 | Outpatient (REF) | payer OTHER, SELFPAY ==
[2023-04-18 09:58] LABS: MANUAL DIFF FLAG NO
[2023-04-18 10:49] LABS: Basophils Absolute Auto 0.1 X10*3/uL (0.0-0.2); Basophils Percent Auto 0.7 % (0-2); Eosinophils Absolute Auto 0.3 X10*3/uL (0.0-0.4); Eosinophils Percent Auto 3.1 % (0-4); Hematocrit 41.4 % (42.0-52.0); Hemoglobin 14.1 g/dl (14.0-18.0); Imm Gran Abs Auto 0.02 X10*3/uL (0.00-0.03); Imm Gran Pct Auto 0.2 % (0.0-0.4); Lymphocytes Absolute Auto 2.9 X10*3/uL (1.2-4.9); Lymphocytes Percent Auto 28.6 % (20-40); Mean Corpuscular HGB Conc 34.1 g/dl (31.0-36.0); Mean Corpuscular Hemoglobin 32.6 pg (27.0-33.0); Mean Corpuscular Volume 95.8 fL (80.0-98.0); Mean Platelet Volume 10.4 fL (9.4-12.4); Monocytes Absolute Auto 0.9 X10*3/uL (0.1-1.2); Monocytes Percent Auto 8.5 % (2-11); Neutrophils Absolute Auto 5.9 x10*3/uL (2.0-8.3); Neutrophils Percent Auto 58.9 % (45-73); Platelet Count 250 X10*3/uL (160-400); Red Blood Count 4.32 X10*6/uL (4.60-5.80); Red Cell Distribution Width 11.7 % (11.0-16.0); White Blood Count 10.1 X10*3/uL (4.8-10.8)
[2023-04-18 12:22] LABS: Alanine Aminotransferase 15 U/L (0-40); Albumin Level 4.5 g/dL (3.5-5.0); Alkaline Phosphatase 67 U/L (39-117); Anion Gap 11 (12-20); Aspartate Amino Transferase 18 U/L (5-37); Bilirubin Total 0.7 mg/dL (0.0-1.0); Blood Urea Nitrogen 14 mg/dL (9-16); Calcium 9.6 mg/dL (8.4-10.2); Carbon Dioxide 29 mmol/L (22-29); Chloride 106 mmol/L (96-108); Cholesterol 183 mg/dL; Estimated Glomerular Filt Rate > 60; Glucose Fasting 92 mg/dL (60-99); HDL Cholesterol 33 mg/dL; LDL Cholesterol Calculated 132 mg/dl; Potassium 4.3 mmol/L (3.3-5.1); Prostate Specific Antigen Scr 0.16 ng/mL (<0.05-4.0); Sodium 142 mmol/L (135-145); TSH reflex Free T4 1.84 uIU/mL (0.32-4.0); Total Protein 7.5 g/dL (6.5-8.0); Triglycerides 91 mg/dL
[2023-04-18 13:12] LABS: Appearance Urine Clear; Color Urine Dark Yellow; Glucose Urine UA Negative (Negative); Leukocyte Esterase Urine Trace (Negative); Nitrite Urine Negative (Negative); Specific Gravity - Urine 1.025 (1.005-1.025); UMIC TRIGGER UACC YES; Urine Blood Negative (Negative); Urine Ketones Trace mg/dL (Negative); Urine Protein Trace mg/dL (Neg-Trace)
[2023-04-18 13:15] LABS: Bacteria Urine None Seen (None Seen); Hyaline Casts Urine 0-2 /LPF (0-2); Squamous Epithelial Cell Urine 0-2 /HPF (0-2); WBC Urine 0-5 /HPF (0-5)
== END 2023-04-18 09:51 | disposition home or self-care (01) ==
LOC: HO.LAB 09:50
PROVIDERS: PCP Nurse Practitioner Family; Visit Provider Nurse Practitioner Family
DX: I10 Essential (primary) hypertension (principal); R13.10 Dysphagia, unspecified; Z12.5 Encounter for screening for malignant neoplasm of prostate
CPT/HCPCS: 36415; 80053; 80061; 81001; 81003; 84153; 84443; 85025

== ENCOUNTER 2023-04-18 10:01 | Outpatient (REF) | payer OTHER, SELFPAY ==
--- NOTE | ~2023-04-18 | FL_ITS ---
EXAMINATION: XR GI SERIES CLINICAL INFORMATION: Dysphagia COMPARISON: None available. TECHNIQUE: Upper GI was performed using thin and thick barium and effervescent granules FINDINGS: Esophageal motility is normal. There is a severe stricture of the distal thoracic esophagus/GE junction region. There is mild gastroesophageal reflux. No hernia. The stomach and duodenum are otherwise normal. FLUOROSCOPY TIME: 0.5 minutes Dose: 5.3 carrington per centimeter squared, total dose 21 mg and, 24 saved fluoroscopic images FL/FL upper GI series IMPRESSION: Severe stricture of the distal thoracic esophagus/GE junction region. Mild gastroesophageal reflux. Mass cannot be excluded. GI consultation and endoscopic correlation recommended. 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
== END 2023-04-18 10:02 | disposition home or self-care (01) ==
LOC: HO.XRAY 10:01
PROVIDERS: PCP Nurse Practitioner Family; Visit Provider Nurse Practitioner Family
DX: R13.10 Dysphagia, unspecified (principal)
CPT/HCPCS: 74240

== ENCOUNTER → 2023-04-23 09:20 | Outpatient (BNVA) | payer OTHER, SELFPAY | PROVIDERS: PCP Nurse Practitioner Family; Visit Provider Internal Medicine | DX: K22.2 Esophageal obstruction (principal); R13.10 Dysphagia, unspecified; Z92.3 Personal history of irradiation | CPT/HCPCS: 99202 ==

== ENCOUNTER 2023-04-26 12:47 | Day surgery (SDC) | payer OTHER, SELFPAY ==
--- NOTE | 2023-04-25 10:37 | HO.ANESPROP2 ---
Documented by User: Suly Ramos NP 04/25/23 10:38 HPI - Anesthesia Eval Consult details Narrative: 57yo M for Upper Endoscopy with Balloon Dilitation PMFSH Active Problems Active Problems: All Active Problems (Updated 04/23/23 @ 10:54 by Gloria Chamorro MD) History of radiation exposure (Acute) Dysphagia (Acute) Stricture esophagus (Acute) Food sticks on swallowing (Acute) Peyronie's disease (Acute) Acute pain (Acute) Swelling of left wrist (Acute) Wrist pain, left (Acute) Injury of right foot (Acute) Pain of right foot (Acute) Pain of left heel (Acute) Injury of foot, left (Acute) Odynophagia (Acute) Hydronephrosis (Acute) HTN (hypertension) (Acute) Encounter for annual wellness visit (AWV) in Medicare patient (Acute) Strain of left trapezius muscle (Acute) Neck pain (Acute) Orchalgia (Acute) Screening PSA (prostate specific antigen) (Acute) Physical exam (Acute) Hypothyroid (Acute) Right knee pain (Acute) Spermatocele (Acute) Erectile dysfunction (Acute) Past Medical History Medical History Cancer of tongue Hypothyroid Family History Family History Paternal Uncle Substance use disorder Paternal Uncle Substance use disorder Paternal Uncle Substance use disorder Paternal Uncle Substance use disorder Sister Substance use disorder Other Mental health disorder Family history of problems with anesthesia: No Surgical History Surgical History H/O colonoscopy Hx of tonsillectomy S/P cervical spinal fusion History of Problems with Anesthesia: No Social History Social History Housing: House Alcohol intake: former Patient Tobacco Use Status: Former Tobacco user e-Cigarette/Vaping Use: Never Used Second Hand Smoke Exposure: No Use of substances other than those prescribed or required for medical reasons: No Are you DNR?: No Advance Directives: No Advance Directives Information Provided: Yes Recently lost weight without trying: Yes How much weight loss: 14-23 pounds Nutrition Risks: No Nutritional Risk Current occupational status: employed Cognitive needs: No Hearing needs: No Vision needs: No Meds Allergies Allergy/AdvReac Type Severity Reaction Status Date / Time cisplatin [CISPLATIN] Allergy Severe ANAPHYLAXIS Verified 04/23/23 09:22 adhesive tape [ADHESIVE TAPE] Allergy Intermediate BLISTER/LESTER Verified 04/23/23 09:22 H Sulfa (Sulfonamide Allergy Unknown Gastrointestinal Verified 04/26/23 13:22 Antibiotics) Upset oxycodone [OXYCODONE] AdvReac Intermediate GI UPSET Verified 04/23/23 09:22 Exam Exam Date and Time: April 25, 2023 1037 Pertinent Lab Results Pertinent Lab Results: Laboratory Tests 04/18/23 04/18/23 09:58 09:58 WBC 10.1 Hgb 14.1 Hct 41.4 L Plt Count 250 Sodium 142 Potassium 4.3 Chloride 106 Carbon Dioxide 29 BUN 14 Creatinine 1.10 Assessment and Plan Assessment Anesthesia Assessment: Chart Reviewed Final Anesthetic Review Family History of Problems with Anesthesia: No History of Problems with Anesthesia: No Documented by User: Steph Mojica MD 04/26/23 14:26 PMFSH Past Medical History Medical History Cancer of tongue Hypothyroid Family History Family History Paternal Uncle Substance use disorder Paternal Uncle Substance use disorder Paternal Uncle Substance use disorder Paternal Uncle Substance use disorder Sister Substance use disorder Other Mental health disorder Surgical History Surgical History H/O colonoscopy Hx of tonsillectomy S/P cervical spinal fusion Social History Social History Housing: House Alcohol intake: former Patient Tobacco Use Status: Former Tobacco user e-Cigarette/Vaping Use: Never Used Second Hand Smoke Exposure: No Use of substances other than those prescribed or required for medical reasons: No Are you DNR?: No Advance Directives: No Advance Directives Information Provided: Yes Recently lost weight without trying: Yes How much weight loss: 14-23 pounds Nutrition Risks: No Nutritional Risk Current occupational status: employed Cognitive needs: No Hearing needs: No Vision needs: No Meds Allergies Allergy/AdvReac Type Severity Reaction Status Date / Time cisplatin [CISPLATIN] Allergy Severe ANAPHYLAXIS Verified 04/23/23 09:22 adhesive tape [ADHESIVE TAPE] Allergy Intermediate BLISTER/LESTER Verified 04/23/23 09:22 H Sulfa (Sulfonamide Allergy Unknown Gastrointestinal Verified 04/26/23 13:22 Antibiotics) Upset oxycodone [OXYCODONE] AdvReac Intermediate GI UPSET Verified 04/23/23 09:22 Exam Airway Mallampati Class: II TM Dist: >3cm Neck ROM: Full Loose/Missing/Broken Teeth: No Heart: RRR Lungs: CTA Assessment and Plan Assessment Anesthesia Assessment: Anesthesia Plan Discussed Final Anesthetic Review NPO: Yes ASA Class: II Final Preanesthetic Review: Meds/Allgs Chart Reviewed, Consent Obtained/Reviewed and Anes Risks/Benef Reviewed Patient Risk: Low Procedure Risk: Intermediate Anesthetic Plan Anesthetic Plan: MAC: Disposition: Standard PACU
[2023-04-26 13:22] VITALS: BMI 26.4
[2023-04-26 13:32] VITALS: BP 126/79; PULSE 71; RESP 16; TEMP 37.2; O2SAT 96
[2023-04-26] MEDS: Lactated Ringers 1,000 ML 100 ML IVCONT (13:45)
--- NOTE | 2023-04-26 14:14 | MHC.SHP ---
Pre-Procedural Eval Section A Date of Service: 04/26/23 The History & Physical has been completed within 30 days and I have reviewed it.: Yes Section B Chief Complaint: Dysphagia, esophageal stricture Allergies: Allergies Allergy/AdvReac Type Severity Reaction Status Date / Time cisplatin [CISPLATIN] Allergy Severe ANAPHYLAXIS Verified 04/23/23 09:22 adhesive tape [ADHESIVE TAPE] Allergy Intermediate BLISTER/LESTER Verified 04/23/23 09:22 H Sulfa (Sulfonamide Allergy Unknown Gastrointestinal Verified 04/26/23 13:22 Antibiotics) Upset oxycodone [OXYCODONE] AdvReac Intermediate GI UPSET Verified 04/23/23 09:22 Plan Diagnosis/Plan: Unchanged I have reviewed the history and physical and performed a pertinent physical examination on my patient. No changes have occurred unless specified. Time Spent With Patient Time: Total time managing care of this patient today ____ minutes.
--- NOTE | 2023-04-26 14:15 | P.OP_ITS ---
Operative Note Operative Note Date of Service: 04/26/23 Narrative: Procedure: Esophagogastroduodenoscopy Endoscopist: Gloria Chamorro MD Indication: Dysphagia, esophageal stricture Anesthesia Provider: Kay Trotter CRNA Anesthesia Type: MAC Instrument: [id number] and [id number]? ? EGD Procedure:?? The procedure, indications, preparation and potential complications were reviewed with the patient, who indicated understanding and gave written informed consent to proceed. A physical exam was performed. The endoscope was introduced through the mouth, and advanced to the lower part of the esophagus. The mucosa was carefully examined on slow withdrawal of the endoscope. The patient tolerated the procedure well. There were no immediate complications.? ? EGD Findings:? * Larynx: Fibrotic and atrophic appearance * Esophagus: Food residue noted on the allen of the esophagus. High grade stricture was encountered at 45 cm which could not be traversed with regular gastroscope or the slim scope despite multiple attempts. EGD Impressions:? * High grade stricture at 45 cm ?? Recommendations:?? * We will schedule an upper endoscopy with fluoroscopy to allow for wire guided dilation and evaluation of the stricture * Strictly liquid diet until then * PPI Above has been reviewed with the patient.
[2023-04-26 14:45] VITALS: BP 127/81; PULSE 85; RESP 16; TEMP 36.5; O2SAT 97
[2023-04-26 15:00] VITALS: BP 123/77; PULSE 74; RESP 16; TEMP 37.1; O2SAT 98
== END 2023-04-26 15:26 | disposition home or self-care (01) ==
PROVIDERS: PCP Nurse Practitioner Family; Visit Provider Internal Medicine
PROC: (CPT 43235; principal; 2023-04-26 14:20)
DX: R13.10 Dysphagia, unspecified (principal); K22.2 Esophageal obstruction; Z85.810 Personal history of malignant neoplasm of tongue; Z77.123 Contact with and (suspected) exposure to radon and other naturally occurring radiation; E03.9 Hypothyroidism, unspecified; Z79.899 Other long term (current) drug therapy; Z88.2 Allergy status to sulfonamides; Z88.8 Allergy status to other drugs, medicaments and biological substances; L23.1 Allergic contact dermatitis due to adhesives; Z87.891 Personal history of nicotine dependence
CPT/HCPCS: 43235

== ENCOUNTER 2023-05-03 08:24 | Day surgery (SDC) | payer OTHER, SELFPAY ==
--- NOTE | 2023-05-01 14:39 | HO.ANESPROP2 ---
Documented by User: Suly Ramos NP 05/01/23 14:40 HPI - Anesthesia Eval Consult details Narrative: 57yo M for Upper Endoscopy w/ Fluoroscopy s/p EGD with Balloon 04/27/23 with MAC PMFSH Active Problems Active Problems: All Active Problems (Updated 04/23/23 @ 10:54 by Gloria Chamorro MD) History of radiation exposure (Acute) Dysphagia (Acute) Stricture esophagus (Acute) Food sticks on swallowing (Acute) Peyronie's disease (Acute) Acute pain (Acute) Swelling of left wrist (Acute) Wrist pain, left (Acute) Injury of right foot (Acute) Pain of right foot (Acute) Pain of left heel (Acute) Injury of foot, left (Acute) Odynophagia (Acute) Hydronephrosis (Acute) HTN (hypertension) (Acute) Encounter for annual wellness visit (AWV) in Medicare patient (Acute) Strain of left trapezius muscle (Acute) Neck pain (Acute) Orchalgia (Acute) Screening PSA (prostate specific antigen) (Acute) Physical exam (Acute) Hypothyroid (Acute) Right knee pain (Acute) Spermatocele (Acute) Erectile dysfunction (Acute) Past Medical History Medical History Cancer of tongue Hypothyroid Family History Family History Paternal Uncle Substance use disorder Paternal Uncle Substance use disorder Paternal Uncle Substance use disorder Paternal Uncle Substance use disorder Sister Substance use disorder Other Mental health disorder Family history of problems with anesthesia: No Surgical History Surgical History H/O colonoscopy Hx of tonsillectomy S/P cervical spinal fusion History of Problems with Anesthesia: No Social History Social History Housing: House Alcohol intake: former Patient Tobacco Use Status: Former Tobacco user e-Cigarette/Vaping Use: Never Used Second Hand Smoke Exposure: No Use of substances other than those prescribed or required for medical reasons: No Advance Directives: No Advance Directives Information Provided: Yes Recently lost weight without trying: Yes How much weight loss: 24-33 pounds Current occupational status: employed Cognitive needs: No Hearing needs: No Vision needs: No Meds Allergies Allergy/AdvReac Type Severity Reaction Status Date / Time cisplatin [CISPLATIN] Allergy Severe ANAPHYLAXIS Verified 04/23/23 09:22 adhesive tape [ADHESIVE TAPE] Allergy Intermediate BLISTER/LESTER Verified 04/23/23 09:22 H Sulfa (Sulfonamide Allergy Unknown Gastrointestinal Verified 04/26/23 13:22 Antibiotics) Upset oxycodone [OXYCODONE] AdvReac Intermediate GI UPSET Verified 04/23/23 09:22 Exam Exam Date and Time: May 01, 2023 1439 Pertinent Lab Results Pertinent Lab Results: Laboratory Tests 04/18/23 04/18/23 09:58 09:58 WBC 10.1 Hgb 14.1 Hct 41.4 L Plt Count 250 Sodium 142 Potassium 4.3 Chloride 106 Carbon Dioxide 29 BUN 14 Creatinine 1.10 Assessment and Plan Assessment Anesthesia Assessment: Chart Reviewed Final Anesthetic Review Family History of Problems with Anesthesia: No History of Problems with Anesthesia: No Documented by User: Carolyn Deleon MD 05/03/23 09:20 PMFSH Past Medical History Medical History Cancer of tongue Hypothyroid Family History Family History Paternal Uncle Substance use disorder Paternal Uncle Substance use disorder Paternal Uncle Substance use disorder Paternal Uncle Substance use disorder Sister Substance use disorder Other Mental health disorder Surgical History Surgical History H/O colonoscopy Hx of tonsillectomy S/P cervical spinal fusion Social History Social History Housing: House Alcohol intake: former Patient Tobacco Use Status: Former Tobacco user e-Cigarette/Vaping Use: Never Used Second Hand Smoke Exposure: No Use of substances other than those prescribed or required for medical reasons: No Advance Directives: No Advance Directives Information Provided: Yes Recently lost weight without trying: Yes How much weight loss: 24-33 pounds Current occupational status: employed Cognitive needs: No Hearing needs: No Vision needs: No Meds Allergies Allergy/AdvReac Type Severity Reaction Status Date / Time cisplatin [CISPLATIN] Allergy Severe ANAPHYLAXIS Verified 04/23/23 09:22 adhesive tape [ADHESIVE TAPE] Allergy Intermediate BLISTER/LESTER Verified 04/23/23 09:22 H Sulfa (Sulfonamide Allergy Unknown Gastrointestinal Verified 04/26/23 13:22 Antibiotics) Upset oxycodone [OXYCODONE] AdvReac Intermediate GI UPSET Verified 04/23/23 09:22 Exam Airway Mallampati Class: I TM Dist: >3cm Neck ROM: Full Loose/Missing/Broken Teeth: No Heart: rr Lungs: cta Assessment and Plan Assessment Anesthesia Assessment: Anesthesia Plan Discussed Final Anesthetic Review NPO: Yes ASA Class: III Final Preanesthetic Review: No Changes in Pt Med Stat, Meds/Allgs Chart Reviewed, Consent Obtained/Reviewed and Anes Risks/Benef Reviewed Patient Risk: Low Procedure Risk: Low Anesthetic Plan Anesthetic Plan: MAC: Disposition: Standard PACU
[2023-05-03] VITALS (7 sets, daily range): BP systolic 109–127; BP diastolic 66–73; PULSE 69–76; RESP 16–17; TEMP 36.1–36.2; O2SAT 96–100; BMI 26.7
--- NOTE | 2023-05-03 08:30 | MHC.SHP ---
Pre-Procedural Eval Section A Date of Service: 05/03/23 The History & Physical has been completed within 30 days and I have reviewed it.: Yes Section B Chief Complaint: Dysphagia,Esophageal obstruction Allergies: Allergies Allergy/AdvReac Type Severity Reaction Status Date / Time cisplatin [CISPLATIN] Allergy Severe ANAPHYLAXIS Verified 04/23/23 09:22 adhesive tape [ADHESIVE TAPE] Allergy Intermediate BLISTER/LESTER Verified 04/23/23 09:22 H Sulfa (Sulfonamide Allergy Unknown Gastrointestinal Verified 04/26/23 13:22 Antibiotics) Upset oxycodone [OXYCODONE] AdvReac Intermediate GI UPSET Verified 04/23/23 09:22 Plan Diagnosis/Plan: Unchanged I have reviewed the history and physical and performed a pertinent physical examination on my patient. No changes have occurred unless specified. Time Spent With Patient Time: Total time managing care of this patient today ____ minutes.
--- NOTE | 2023-05-03 08:42 | P.OP_ITS ---
Operative Note Operative Note Date of Service: 05/03/23 Narrative: Procedure: Esophagogastroduodenoscopy Endoscopist: Gloria Chamorro MD Indication: Dysphagia, esophageal stricture Anesthesia Provider: Kay Trotter CRNA Anesthesia Type: GEA ? EGD Procedure:?? The procedure, indications, preparation and potential complications were reviewed with the patient, who indicated understanding and gave written informed consent to proceed. A physical exam was performed. The endoscope was introduced through the mouth, and advanced to the lower part of the esophagus. The mucosa was carefully examined on slow withdrawal of the endoscope. The patient tolerated the procedure well. There were no immediate complications.? ? EGD Findings:? * Larynx: Fibrotic and atrophic appearance * Esophagus: High grade stricture was again encountered at 45 cm which could not be traversed with regular gastroscope. Under fluoroscopic guidance, a wire- guided balloon was advanced through the stricture and was attempted to inflate up to 8 mm (3 constance) however, due to significant resistance at 2 constance the diameter was not increased any further. Small tears and heme was noted. We then attempted to pass the XP scope through the stricture however it could still not pass (likely due to significant edema). EGD Impressions:? * High grade stricture at 45 cm?(TTS balloon dilation) Recommendations:?? * Patient will likely need multiple sessions to achieve meaningful dilation of the esophagus. * Repeat upper endoscopy with fluoroscopy in 1-2 weeks * Cont liquid diet * Magic mouthwash as needed for discomfort * Cont PPI Above has been reviewed with the patient. ?
== END 2023-05-03 11:57 | disposition home or self-care (01) ==
PROVIDERS: PCP Nurse Practitioner Family; Visit Provider Internal Medicine
PROC: 0DJ08ZZ Inspection of Upper Intestinal Tract, Via Natural or Artificial Opening Endoscopic (ICD-10-PCS; CPT 43235; principal; 2023-05-03 09:30)
DX: K22.2 Esophageal obstruction (principal); R13.10 Dysphagia, unspecified; Z88.2 Allergy status to sulfonamides; Z88.5 Allergy status to narcotic agent
CPT/HCPCS: 43249; C1726; J0330; J2250; J3010; Q9967

== ENCOUNTER 2023-05-12 12:55 | Emergency (ER) | payer OTHER, SELFPAY ==
[2023-05-12 13:09] VITALS: BP 134/89; PULSE 86; RESP 17; TEMP 36.6; O2SAT 97; BMI 25.9
--- NOTE | 2023-05-12 13:09 | ED.UPPEXIN ---
HPI - Extremity Injury (Upper) General Chief Complaint: Extremity Injury, Upper Stated Complaint: l wrist pain Time Seen by Provider: 05/12/23 13:31 Source: patient Mode of arrival: ambulatory Limitations: no limitations History of Present Illness HPI narrative: 57 yo male with history of throat cancer in remission s/p radiaion/chemotherapy, hypothyroidism here with complaints of left wrist/hand pain and swelling which began when he picked up a cup several days ago. Better with motrin at home. patient has history of tendinitis in his wrist. denies any numbness, tingling or weakness of the extremity. patient is ambidextrous. Related Data Previous Rx's Medication Instructions Recorded cyclobenzaprine 5 mg tablet 5 mg PO BID PRN muscle spasm 2 09/07/21 weeks #14 tabs sildenafil 100 mg tablet 100 mg PO DAILY PRN sexual 02/15/22 activity 30 days #30 tabs bupropion HCl 150 mg tablet,12 hr 150 mg PO BID #180 tabs 10/09/22 sustained-release pentoxifylline 400 mg 400 mg PO BID 90 days #180 tabs 02/15/23 tablet,extended release tadalafil 5 mg tablet 5 mg PO DAILY sexual activity 90 02/15/23 days #90 tabs vitamin E (dl, acetate) 450 mg 450 mg PO DAILY 90 days #90 caps 02/15/23 (1,000 unit) capsule levothyroxine 25 mcg tablet 25 mcg PO DAILY 90 days #114 tabs 02/27/23 (Levo-T) Magic Mouthwash 10 ml PO TID PRN pain 2 days #240 05/03/23 Diphen/Lido/Antacid 1:1:1 240 mL mL suspension food supplemt, lactose-reduced 1 ea PO BID 30 days #14,220 mL 05/10/23 0.05 gram-1.5 kcal/mL oral liquid (Ensure Plus) naproxen 500 mg tablet 500 mg PO BID PRN pain #30 tabs 05/12/23 Allergies Allergy/AdvReac Type Severity Reaction Status Date / Time cisplatin [CISPLATIN] Allergy Severe ANAPHYLAXIS Verified 04/23/23 09:22 adhesive tape [ADHESIVE TAPE] Allergy Intermediate BLISTER/LESTER Verified 04/23/23 09:22 H Sulfa (Sulfonamide Allergy Unknown Gastrointestinal Verified 04/26/23 13:22 Antibiotics) Upset oxycodone [OXYCODONE] AdvReac Intermediate GI UPSET Verified 04/23/23 09:22 Review of Systems Review of Systems: Yes all other systems are reviewed and are negative Constitutional: Constitutional: Reports no additional constitutional complaints, Denies body ache(s), Denies chills, Denies fever(s), Denies headache(s) and Denies weakness Eyes: Eyes: Reports no additional eye complaints and Denies change in vision ENT: Reports system reviewed and no additional complaints, except as documented, Denies dizziness, Denies headache(s), Denies nasal congestion, Denies nasal discharge and Denies neck pain Cardiovascular: Cardiovascular: Reports no additional cardiovascular complaints, Denies chest pain, Denies leg edema and Denies dyspnea Respiratory: Respiratory: Reports no additional respiratory complaints, Denies cough and Denies dyspnea Gastrointestinal: Gastrointestinal: Reports no additional gastrointestinal complaints, Denies abdominal pain, Denies diarrhea, Denies nausea and Denies vomiting Genitourinary: Genitourinary: Denies urinary incontinence Musculoskeletal: Musculoskeletal: Reports no additional musculoskeletal complaints, Denies back pain, Reports arthralgias, Denies joint swelling, Denies neck pain, Denies numbness and Denies tingling Integumentary/Breasts: Skin/Breast: Reports system reviewed and no additional complaints, except as docu and Denies rash Neurologic: Reports system reviewed and no additional complaints, except as documented, Denies Abnormal speech present, Denies dizziness, Denies headache(s), Denies numbness, Denies tingling and Denies weakness PMFSH Past Medical History Attestation statement: The following information was validated with the patient. Source: old records reviewed and nursing notes reviewed Medical History Cancer of tongue Hypothyroid Surgical History H/O colonoscopy Hx of tonsillectomy S/P cervical spinal fusion Family History Family History Paternal Uncle Substance use disorder Paternal Uncle Substance use disorder Paternal Uncle Substance use disorder Paternal Uncle Substance use disorder Sister Substance use disorder Other Mental health disorder Social History Social History Housing: House Alcohol intake: never Patient Tobacco Use Status: Former Tobacco user Smoked in Last 30 Days: No e-Cigarette/Vaping Use: Never Used Second Hand Smoke Exposure: No Use of substances other than those prescribed or required for medical reasons: No Advance Directives: No Advance Directives Information Provided: No Current occupational status: employed Cognitive needs: No Hearing needs: No Vision needs: No Physical Exam Vital Signs: Vital Signs: Last Vital Signs Temp 98.1 F 05/12/23 14:20 Pulse 89 05/12/23 14:57 Resp 16 05/12/23 14:57 BP 117/77 05/12/23 14:57 Pulse Ox 98 05/12/23 14:57 O2 Del Method Room Air 05/12/23 14:57 BMI result Body Mass Index 25.9 Const: General: cooperative, healthy appearing, comfortable and no acute distress Orientation/consciousness: patient oriented x3 Limitations: no limitations HEENT: Head: Yes normal to inspection Ears: hearing grossly normal bilaterally General nose exam: Normal external nose present Face and sinus: Yes normal facial exam Mouth: Normal oral and palatal mucosa present Throat: Yes posterior oropharynx normal Eyes: General: appearance normal, both eyes and all related structures Pupils: Equal, round and reactive pupils present Neck: Neck: Yes normal visual inspection Chest: Chest palpation & inspection: normal inspection of the chest Resp: Effort & Inspection: normal respiratory effort Auscultation: clear to auscultation bilaterally Cardio: Rate: regular rate Rhythm: regular rhythm Peripheral pulses: Peripheral pulses 2+ throughout GI: Inspection: Yes normal to inspection Palpation (GI): Soft to palpation and nontender Auscultation: normal bowel sounds Back/Spine/Pelvis: Thoracic/Lumbar Spine: thoracic and lumbar spine normal to inspection Skin: General skin exam: no rashes or lesions noted Neuro: General: patient oriented x3, no focal motor deficits and normal sensation to monofilament Cranial nerves: Yes Equal, round and reactive pupils present Cognition (Neuro): normal cognition Speech: No Abnormal speech present Gait exam (Neuro): Normal gait present Motor exam (neuro): 5/5 motor strength present throughout Extrem: Other: No warmth or erythema +swelling mild over dorsal wrist left side +mild tenderness on palpation over both volar and dorsal wrist Pain with ulnar and radial deviation and extension and flexion Normal radial/ulnar pulses Sensation normal positive Gurdeep test negative Phalen and Tinel General: Yes normal to inspection Course Course Course Narrative: RME: 57-year-old male with a past medical history of tongue cancer '14, hypothyroid, presenting to the ED complaining of L wrist pain and swelling x3-4 days. Suspect may have tweeked it, but denies direct injury/fall or trauma. Denies known insect/tick bites +L wrist w/dosal swelling and slight erythema, no warmth, no fluctuance/induration or bite appreciated. Limited ROM from pain. NV intact XRs ordered Full HPI, ROS and PE to be performed by primary ED provider. Reevaluation(s) Reevaluation #1: x-ray consistent with osteoarthritis changes.. Patient will be given a thumb spica Velcro splint with recommendation to continue NSAID at home. Reviewed worrisome signs and symptoms of when to return to the emergency room. Comfortable plan for discharge home. Medical Decision Making Medical Decision Making [facility] Narrative: 57-year-old male presents to the ER with complaints of left wrist pain and swelling after lifting up a cup several days ago. On exam patient has swelling, tenderness over the dorsal wrist with some limited range of motion due to pain. He has a positive Gurdeep test most consistent with tendinitis. Will check x-rays Differential Diagnosis Differential Diagnoses: The differential diagnosis associated with the presentation includes low concern for fracture consider osteoarthritis, gout, tendinitis Independent Interpretation I performed an independent interpretation of an: Plain X-Ray Interpretation: dorie morocho reviewed the x-ray and agree with radiologist's report Radiology Impression Discussion of test interpretation with radiology: I have reviewed the radiologist's reading. Radiologist Impression: [address] [address] XRay Report Signed Patient: Ozzie Norton MR#: [id number] : 1965 Acct:[id number] Age/Sex: 57 / M ADM Date: 05/12/23 Loc: HO.ED Attending Dr: Ordering Physician: Leslie Severino Date of Service: 05/12/23 Procedure(s): XR wrist LT min 3V Accession Number(s): [id number] cc: Leslie Severino~ EXAMINATION: XR WRIST, LEFT CLINICAL INFORMATION: Pain and swelling? COMPARISON: Prior radiographs from 05/18/2022? TECHNIQUE: PA, lateral, and oblique views of the left wrist. FINDINGS: No acute findings. No acute fracture or malalignment. Again noted are small osteophytes of the mildly degenerated distal radioulnar joint. There is faintly visible chondrocalcinosis of the wrist including involvement of the triangular fibrocartilage and lunatotriquetral ligament. There appears to be an old cystic lucency within the scaphoid. There is chronic severe loss of joint space of the capitolunate joint with [id number] contact. An old well-corticated ossicle is seen adjacent to the tip of the radial styloid. The carpometacarpal joint spaces are maintained and the visualized metacarpals are intact. Minimal osteophyte formation of the first carpometacarpal joint.? XR/XR wrist LT min 3V IMPRESSION: *? No acute osseous injury at the left wrist. *? There are chronic findings of chondrocalcinosis of the wrist, severe osteoarthritis of the capitolunate joint, and mild osteoarthritis of the distal radioulnar joint. ? Procedures Orthopedic Splinting/Casting Injury #1: Side: left Upper Extremity Injury Location: wrist Upper Extremity Immobilizer: wrist splint Discharge Plan Discharge Clinical Impression: De Quervain's tenosynovitis, left Patient Disposition: Home, Self-Care Instructions: De Quervain Disease (ED), Tenosynovitis (ED) Additional Instructions: Continue ice Use the velcro splint for comfort see your pcp for continued symptoms Prescriptions: New naproxen 500 mg tablet 500 mg PO BID PRN (Reason: pain) Qty: 30 0RF No Action bupropion HCl 150 mg tablet sustained-release 12 hr 150 mg PO BID Qty: 180 1RF levothyroxine [Levo-T] 25 mcg tablet 25 mcg PO DAILY 90 Days Qty: 114 0RF Rx Instructions: one tab daily, except on sunday and take an extra tab Complete labs before more refills will be given Ensure Plus 0.05 gram- 1.5 kcal/mL liquid 1 ea PO BID 30 Days Qty: 42021 1RF Magic Mouthwash Diphen/Lido/Antacid 1:1:1 240 mL suspension 10 ml PO TID PRN (Reason: pain) 2 Days Qty: 240 0RF Rx Instructions: Lidocaine Viscous 2 % 80mL; diphenhydramine 12.5 mg/5 mL 80mL; aluminum-mag hydrox-simeth 148ms-[id number]-43ys/5mL 80mL cyclobenzaprine 5 mg tablet 5 mg PO BID PRN (Reason: muscle spasm) 14 Days Qty: 14 0RF sildenafil 100 mg tablet 100 mg PO DAILY PRN (Reason: sexual activity) 30 Days Qty: 30 1RF Rx Instructions: administer 60 minutes before intended activity pentoxifylline 400 mg tablet extended release 400 mg PO BID 90 Days Qty: 180 1RF tadalafil 5 mg tablet 5 mg PO DAILY 90 Days Qty: 90 1RF vitamin E (dl, acetate) 450 mg (1,000 unit) capsule 450 mg PO DAILY 90 Days Qty: 90 1RF Referrals: Audi Patino, [employer] [Primary Care Provider] - 1 week Interventions: ED Discharge Assessment Last Done: 05/12/23 14:55 Discharge Date/Time: 05/12/23 14:58
[2023-05-12 14:20] VITALS: BP 119/88; PULSE 71; RESP 18; TEMP 36.7; O2SAT 98
[2023-05-12 14:57] VITALS: BP 117/77; PULSE 89; RESP 16; O2SAT 98
== END 2023-05-12 14:58 | disposition home or self-care (01) ==
PROVIDERS: Emergency Provider Emergency Medicine; PCP Nurse Practitioner Family
DX: M65.4 Radial styloid tenosynovitis [de Quervain] (principal); M25.532 Pain in left wrist; Z85.819 Personal history of malignant neoplasm of unspecified site of lip, oral cavity, and pharynx; Z92.3 Personal history of irradiation; Z92.21 Personal history of antineoplastic chemotherapy; Z87.891 Personal history of nicotine dependence; Z79.899 Other long term (current) drug therapy
CPT/HCPCS: 29125; 73110; 99283; 99284

== ENCOUNTER 2023-05-17 07:50 | Day surgery (SDC) | payer OTHER, SELFPAY ==
[2023-05-14 13:43] VITALS: BMI 26.4
--- NOTE | ~2023-05-17 | FL_ITS ---
EXAMINATION: XR FLUOROSCOPY WITH IMAGES CLINICAL INFORMATION: EGD. COMPARISON: None. TECHNIQUE: Fluoroscopy Supervised By: Dr. Chamorro. Fluoroscopy Time: 29.5 seconds. Cumulative Dose: 7.95 mGy. DAP: None available. Images: 4. FINDINGS: Images demonstrate an endoscopy scope projecting injecting over the lower chest/upper abdomen presumably in the distal esophagus. Later images demonstrate an air-filled dilated stomach and single surgical clip projecting over the inferior stomach. FL/FL guidance in OR IMPRESSION: Fluoroscopy guidance for EGD.
[2023-05-17 08:03] VITALS: BP 117/70; PULSE 65; RESP 16; TEMP 36; O2SAT 98
--- NOTE | 2023-05-17 08:38 | MHC.SHP ---
Pre-Procedural Eval Section A Date of Service: 05/17/23 The History & Physical has been completed within 30 days and I have reviewed it.: Yes Section B Chief Complaint: Esophageal obstruction Allergies: Allergies Allergy/AdvReac Type Severity Reaction Status Date / Time cisplatin [CISPLATIN] Allergy Severe ANAPHYLAXIS Verified 05/17/23 07:57 adhesive tape [ADHESIVE TAPE] Allergy Intermediate BLISTER/LESTER Verified 05/17/23 07:57 H Sulfa (Sulfonamide Allergy Unknown Gastrointestinal Verified 05/17/23 07:57 Antibiotics) Upset oxycodone [OXYCODONE] AdvReac Intermediate GI UPSET Verified 05/17/23 07:57 Plan Diagnosis/Plan: Unchanged I have reviewed the history and physical and performed a pertinent physical examination on my patient. No changes have occurred unless specified. Time Spent With Patient Time: Total time managing care of this patient today ____ minutes.
--- NOTE | 2023-05-17 09:06 | HO.ANESPROP2 ---
HPI - Anesthesia Eval Consult details Narrative: EGD for stricture PMFSH Active Problems Active Problems: All Active Problems (Updated 05/17/23 @ 08:00 by Anabel Bustos RN) Hypothyroid (Acute) Right knee pain (Acute) Spermatocele (Acute) Erectile dysfunction (Acute) Physical exam (Acute) Screening PSA (prostate specific antigen) (Acute) Orchalgia (Acute) Neck pain (Acute) Strain of left trapezius muscle (Acute) Encounter for annual wellness visit (AWV) in Medicare patient (Acute) HTN (hypertension) (Acute) Hydronephrosis (Acute) Odynophagia (Acute) Injury of foot, left (Acute) Pain of left heel (Acute) Pain of right foot (Acute) Injury of right foot (Acute) Wrist pain, left (Acute) Swelling of left wrist (Acute) Acute pain (Acute) Peyronie's disease (Acute) Food sticks on swallowing (Acute) Stricture esophagus (Acute) Dysphagia (Acute) History of radiation exposure (Acute) Past Medical History Medical History (Updated 05/17/23 @ 08:00 by Anabel Bustos RN) Cancer of tongue Depression Hypothyroid Family History Family History Paternal Uncle Substance use disorder Paternal Uncle Substance use disorder Paternal Uncle Substance use disorder Paternal Uncle Substance use disorder Sister Substance use disorder Other Mental health disorder Family history of problems with anesthesia: No Surgical History Surgical History H/O colonoscopy History of esophagogastroduodenoscopy (EGD) Hx of tonsillectomy S/P cervical spinal fusion History of Problems with Anesthesia: No Social History Social History Housing: House Alcohol intake: never Patient Tobacco Use Status: Former Tobacco user e-Cigarette/Vaping Use: Never Used Second Hand Smoke Exposure: No Use of substances other than those prescribed or required for medical reasons: No Are you DNR?: No Advance Directives: No Advance Directives Information Provided: Yes Advance Directives on File: No Recently lost weight without trying: Yes How much weight loss: 14-23 pounds Nutrition Risks: No Nutritional Risk Current occupational status: employed Cognitive needs: No Hearing needs: No Vision needs: No Meds Allergies Allergy/AdvReac Type Severity Reaction Status Date / Time cisplatin [CISPLATIN] Allergy Severe ANAPHYLAXIS Verified 05/17/23 07:57 adhesive tape [ADHESIVE TAPE] Allergy Intermediate BLISTER/LESTER Verified 05/17/23 07:57 H Sulfa (Sulfonamide Allergy Unknown Gastrointestinal Verified 05/17/23 07:57 Antibiotics) Upset oxycodone [OXYCODONE] AdvReac Intermediate GI UPSET Verified 05/17/23 07:57 Home Medications Medication Instructions Recorded Confirmed Last Taken Type sildenafil 100 mg tablet (Viagra) 100 mg PO DAILY PRN sexual activity 05/17/23 05/17/23 Unknown History Exam Exam Date and Time: May 17, 2023905 Height,Weight and Vital Signs: Height 5 ft 10 in Weight 83.461 kg Last Vital Signs Temp 96.8 F 05/17/23 08:03 Pulse 65 05/17/23 08:03 Resp 16 05/17/23 08:03 BP 117/70 05/17/23 08:03 Pulse Ox 98 05/17/23 08:03 O2 Del Method Room Air 05/17/23 08:03 Airway Mallampati Class: II TM Dist: >3cm Neck ROM: Limited Heart: rrr Lungs: cta Assessment and Plan Final Anesthetic Review Family History of Problems with Anesthesia: No History of Problems with Anesthesia: No ASA Class: III Final Preanesthetic Review: No Changes in Pt Med Stat, Meds/Allgs Chart Reviewed, Consent Obtained/Reviewed and Anes Risks/Benef Reviewed Patient Risk: Intermediate Procedure Risk: Intermediate Anesthetic Plan Anesthetic Plan: MAC: and Agree w/ Assess. and Plan Disposition: Standard PACU
[2023-05-17 10:51] VITALS: BP 117/70; PULSE 60; RESP 16; TEMP 36.6; O2SAT 98
--- NOTE | 2023-05-17 10:51 | P.OP_ITS ---
Operative Note Operative Note Date of Service: 05/03/23 Narrative: Procedure: Esophagogastroduodenoscopy Endoscopist: Gloria Chamorro MD Indication: Dysphagia, esophageal stricture Anesthesia Provider: Donny Pritchett MD Anesthesia Type: GEA ? EGD Procedure:?? The procedure, indications, preparation and potential complications were reviewed with the patient, who indicated understanding and gave written informed consent to proceed. A physical exam was performed. The endoscope was introduced through the mouth, and advanced to the lower part of the esophagus. The mucosa was carefully examined on slow withdrawal of the endoscope. The patient tolerated the procedure well. There were no immediate complications.? ? EGD Findings:? * Larynx: Fibrotic and atrophic appearance * Esophagus: High grade stricture was again encountered at 45 cm which could not be traversed with regular gastroscope. Under fluoroscopic guidance, a wire- guided balloon was advanced through the stricture and was inflated up to 8 mm (3 constance). Due to significant resistance at 8 mm this was not dilated any furt her. Small tears and heme was noted. We then attempted to pass the XP scope through the stricture however it could still not pass (likely due to significant edema). EGD Impressions:? * High grade stricture at 45 cm?(TTS balloon dilation) Recommendations:?? * Patient will likely need multiple sessions to achieve meaningful dilation of the esophagus. * Repeat upper endoscopy with fluoroscopy in 1-2 weeks * Cont liquid diet * Magic mouthwash as needed for discomfort * Cont PPI, added carafate liquid 1g PO QID * Above has been reviewed with the patient. ?
[2023-05-17 11:06] VITALS: BP 118/79; PULSE 55; RESP 20; TEMP 37.1; O2SAT 100
== END 2023-05-17 11:43 | disposition home or self-care (01) ==
PROVIDERS: PCP Nurse Practitioner Family; Visit Provider Internal Medicine
PROC: 0DJ08ZZ Inspection of Upper Intestinal Tract, Via Natural or Artificial Opening Endoscopic (ICD-10-PCS; CPT 43235; principal; 2023-05-17 09:40)
DX: K22.2 Esophageal obstruction (principal); R13.10 Dysphagia, unspecified; E03.9 Hypothyroidism, unspecified; Z85.810 Personal history of malignant neoplasm of tongue; Z92.21 Personal history of antineoplastic chemotherapy; Z92.3 Personal history of irradiation; Z79.899 Other long term (current) drug therapy; Z88.8 Allergy status to other drugs, medicaments and biological substances; Z87.891 Personal history of nicotine dependence; Z91.040 Latex allergy status; Z88.2 Allergy status to sulfonamides
CPT/HCPCS: 43249; C1726; J3010; Q9967

== ENCOUNTER → 2023-05-17 07:50 | Outpatient (BNV) | payer OTHER, SELFPAY | PROVIDERS: PCP Nurse Practitioner Family; Visit Provider Internal Medicine | DX: K22.2 Esophageal obstruction (principal) | CPT/HCPCS: 43249 ==

== ENCOUNTER 2023-05-24 07:37 | Day surgery (SDC) | payer OTHER, SELFPAY ==
--- NOTE | 2023-05-23 12:24 | P.CONAN_ITS ---
Documented by User: Suly Rmaos NP 05/23/23 12:27 HPI - Anesthesia Eval Consult details Narrative: 57yo M for Upper Endoscopy w/ Fluroscopy s/p EGD with dilation 05/17/23 with GA-ETT 7 PMF Active Problems Active Problems: All Active Problems (Updated 05/17/23 @ 08:00 by Anabel Bustos RN) Hypothyroid (Acute) Right knee pain (Acute) Spermatocele (Acute) Erectile dysfunction (Acute) Physical exam (Acute) Screening PSA (prostate specific antigen) (Acute) Orchalgia (Acute) Neck pain (Acute) Strain of left trapezius muscle (Acute) Encounter for annual wellness visit (AWV) in Medicare patient (Acute) HTN (hypertension) (Acute) Hydronephrosis (Acute) Odynophagia (Acute) Injury of foot, left (Acute) Pain of left heel (Acute) Pain of right foot (Acute) Injury of right foot (Acute) Wrist pain, left (Acute) Swelling of left wrist (Acute) Acute pain (Acute) Peyronie's disease (Acute) Food sticks on swallowing (Acute) Stricture esophagus (Acute) Dysphagia (Acute) History of radiation exposure (Acute) Past Medical History Medical History Cancer of tongue Depression Hypothyroid Family History Family History Paternal Uncle Substance use disorder Paternal Uncle Substance use disorder Paternal Uncle Substance use disorder Paternal Uncle Substance use disorder Sister Substance use disorder Other Mental health disorder Family history of problems with anesthesia: No Surgical History Surgical History H/O colonoscopy History of esophagogastroduodenoscopy (EGD) Hx of tonsillectomy S/P cervical spinal fusion History of Problems with Anesthesia: No Social History Social History Housing: House Are you a primary direct care counselor to a significant other at home: No Do you presently have visiting nurse or other home services: No Alcohol intake: never Patient Tobacco Use Status: Former Tobacco user e-Cigarette/Vaping Use: Never Used Second Hand Smoke Exposure: No Have you been hit, kicked, punched, or otherwise hurt by someone within the past year? If so, by whom?: No Are you DNR?: No Advance Directives: No Advance Directives Information Provided: Yes Recently lost weight without trying: Yes How much weight loss: 34pounds or more Eating poorly because of decreased appetite: Yes Nutrition screen score: 7 Nutrition Risks: Difficulty swallowing Poor oral hygiene: No Current occupational status: employed Cognitive needs: No Hearing needs: No Vision needs: No Meds Allergies Allergy/AdvReac Type Severity Reaction Status Date / Time cisplatin [CISPLATIN] Allergy Severe ANAPHYLAXIS Verified 05/17/23 07:57 adhesive tape [ADHESIVE TAPE] Allergy Intermediate BLISTER/LESTER Verified 05/17/23 07:57 H Sulfa (Sulfonamide Allergy Unknown Gastrointestinal Verified 05/17/23 07:57 Antibiotics) Upset oxycodone [OXYCODONE] AdvReac Intermediate GI UPSET Verified 05/17/23 07:57 Home Medications Medication Instructions Recorded Confirmed Last Taken Type sildenafil 100 mg tablet (Viagra) 100 mg PO DAILY PRN sexual activity 05/17/23 05/17/23 Unknown History Exam Exam Date and Time: May 23, 2023 1224 Pertinent Lab Results Pertinent Lab Results: Laboratory Tests 04/18/23 04/18/23 09:58 09:58 WBC 10.1 Hgb 14.1 Hct 41.4 L Plt Count 250 Sodium 142 Potassium 4.3 Chloride 106 Carbon Dioxide 29 BUN 14 Creatinine 1.10 Assessment and Plan Assessment Anesthesia Assessment: Chart Reviewed Final Anesthetic Review Family History of Problems with Anesthesia: No History of Problems with Anesthesia: No Documented by User: Brenda Braun MD 05/24/23 10:03 [facility] Past Medical History Medical History Cancer of tongue Depression Hypothyroid Family History Family History Paternal Uncle Substance use disorder Paternal Uncle Substance use disorder Paternal Uncle Substance use disorder Paternal Uncle Substance use disorder Sister Substance use disorder Other Mental health disorder Surgical History Surgical History H/O colonoscopy History of esophagogastroduodenoscopy (EGD) Hx of tonsillectomy S/P cervical spinal fusion Social History Social History Housing: House Are you a primary direct care counselor to a significant other at home: No Do you presently have visiting nurse or other home services: No Alcohol intake: never Patient Tobacco Use Status: Former Tobacco user e-Cigarette/Vaping Use: Never Used Second Hand Smoke Exposure: No Have you been hit, kicked, punched, or otherwise hurt by someone within the past year? If so, by whom?: No Are you DNR?: No Advance Directives: No Advance Directives Information Provided: Yes Recently lost weight without trying: Yes How much weight loss: 34pounds or more Eating poorly because of decreased appetite: Yes Nutrition screen score: 7 Nutrition Risks: Difficulty swallowing Poor oral hygiene: No Current occupational status: employed Cognitive needs: No Hearing needs: No Vision needs: No Meds Allergies Allergy/AdvReac Type Severity Reaction Status Date / Time cisplatin [CISPLATIN] Allergy Severe ANAPHYLAXIS Verified 05/17/23 07:57 adhesive tape [ADHESIVE TAPE] Allergy Intermediate BLISTER/LESTER Verified 05/17/23 07:57 H Sulfa (Sulfonamide Allergy Unknown Gastrointestinal Verified 05/17/23 07:57 Antibiotics) Upset oxycodone [OXYCODONE] AdvReac Intermediate GI UPSET Verified 05/17/23 07:57 Home Medications Medication Instructions Recorded Confirmed Last Taken Type sildenafil 100 mg tablet (Viagra) 100 mg PO DAILY PRN sexual activity 05/17/23 05/17/23 Unknown History Exam Airway Mallampati Class: III TM Dist: >3cm Neck ROM: Full Heart: rrr Lungs: cta Other: grade 3 view by direct laryngoscopy from review of last anesthetic Assessment and Plan Assessment Anesthesia Assessment: Anesthesia Plan Discussed Final Anesthetic Review NPO: Yes ASA Class: III Final Preanesthetic Review: No Changes in Pt Med Stat, Meds/Allgs Chart Reviewed, Consent Obtained/Reviewed and Anes Risks/Benef Reviewed Patient Risk: Low Procedure Risk: Low Anesthetic Plan Anesthetic Plan: GA Disposition: Standard PACU
--- NOTE | ~2023-05-24 | FL_ITS ---
EXAMINATION: XR FLUOROSCOPY WITH IMAGES CLINICAL INFORMATION: Upper endoscopy/fluoroscopy. COMPARISON: Upper endoscopy images 05/24/2023. TECHNIQUE: Fluoroscopy Supervised By: Dr. Gloria Chamorro Fluoroscopy Time: 57.4 seconds Cumulative Dose: 18.82 mGy DAP: None Images: 4. FINDINGS: There are 4 digital images obtained of the upper abdomen which reveal endoscopy scope in the GE junction with minimal contrast partially opacifying the proximal stomach. There is a solitary staple along the lateral border of upper stomach similar to previous study. FL/FL guidance in OR IMPRESSION: Fluoroscopy guidance was provided to referring physician during upper endoscopy.
[2023-05-24 08:06] VITALS: BP 102/67; PULSE 61; RESP 18; TEMP 36.9; O2SAT 99; BMI 24.7
--- NOTE | 2023-05-24 08:33 | MHC.SHP ---
Pre-Procedural Eval Section A Date of Service: 05/24/23 The History & Physical has been completed within 30 days and I have reviewed it.: Yes Section B Chief Complaint: Esophageal obstruction Allergies: Allergies Allergy/AdvReac Type Severity Reaction Status Date / Time cisplatin [CISPLATIN] Allergy Severe ANAPHYLAXIS Verified 05/17/23 07:57 adhesive tape [ADHESIVE TAPE] Allergy Intermediate BLISTER/LESTER Verified 05/17/23 07:57 H Sulfa (Sulfonamide Allergy Unknown Gastrointestinal Verified 05/17/23 07:57 Antibiotics) Upset oxycodone [OXYCODONE] AdvReac Intermediate GI UPSET Verified 05/17/23 07:57 Plan Diagnosis/Plan: Unchanged I have reviewed the history and physical and performed a pertinent physical examination on my patient. No changes have occurred unless specified. Time Spent With Patient Time: Total time managing care of this patient today ____ minutes.
--- NOTE | 2023-05-24 08:34 | P.OP_ITS ---
Operative Note Operative Note Date of Service: 05/24/23 Narrative: Procedure: Esophagogastroduodenoscopy Endoscopist: Gloria Chamorro MD Indication: Dysphagia, esophageal stricture Anesthesia Provider: Anesthesia Type: GEA ? EGD Procedure:?? The procedure, indications, preparation and potential complications were reviewed with the patient, who indicated understanding and gave written informed consent to proceed. A physical exam was performed. The endoscope was introduced through the mouth, and advanced to the lower part of the esophagus. The mucosa was carefully examined on slow withdrawal of the endoscope. The patient tolerated the procedure well. There were no immediate complications.? ? EGD Findings:? * Larynx: Fibrotic and atrophic appearance * Esophagus: High grade stricture was again encountered at 45 cm which could not be traversed with regular gastroscope or XP scope. Under fluoroscopic guidance, a wire-guided balloon was advanced through the stricture and was inflated up to 8.5 mm (3.5 constance). A large tear with heme was noted. We then attempted to pass the XP scope through the stricture however it could still not pass (likely due to significant edema). EGD Impressions:? * High grade stricture at 45 cm?(TTS balloon dilation) Recommendations:?? * Patient will likely need multiple sessions to achieve meaningful dilation of the esophagus. * CT chest with IV contrast ordered * Will discuss ? continuing dilation vs G tube * Cont liquid diet * Magic mouthwash as needed for discomfort * Cont PPI, carafate liquid 1g PO QID Above has been reviewed with the patient.
[2023-05-24 10:00] VITALS: BP 129/69; PULSE 69; RESP 17; TEMP 36.1; O2SAT 98
[2023-05-24 10:05] VITALS: BP 114/59; PULSE 59; RESP 16; O2SAT 99
[2023-05-24 10:10] VITALS: BP 120/67; PULSE 60; RESP 14; O2SAT 98
[2023-05-24 10:15] VITALS: BP 130/68; PULSE 57; RESP 14; O2SAT 98
[2023-05-24 10:30] VITALS: BP 120/70; PULSE 64; RESP 15; TEMP 36.5; O2SAT 98
== END 2023-05-24 11:20 | disposition home or self-care (01) ==
PROVIDERS: PCP Nurse Practitioner Family; Visit Provider Internal Medicine
PROC: 0DJ08ZZ Inspection of Upper Intestinal Tract, Via Natural or Artificial Opening Endoscopic (ICD-10-PCS; CPT 43235; principal; 2023-05-24 09:20)
DX: K22.2 Esophageal obstruction (principal); R13.10 Dysphagia, unspecified; I10 Essential (primary) hypertension; Z85.810 Personal history of malignant neoplasm of tongue; Z92.3 Personal history of irradiation; Z92.21 Personal history of antineoplastic chemotherapy; Z87.891 Personal history of nicotine dependence
CPT/HCPCS: 43249; 74360; C1726; J1100; J2405; J3010; Q9967

== ENCOUNTER → 2023-05-24 07:37 | Outpatient (BNV) | payer OTHER, SELFPAY | PROVIDERS: PCP Nurse Practitioner Family; Visit Provider Internal Medicine | DX: K22.2 Esophageal obstruction (principal); R00-R99 Symptoms, signs and abnormal clinical and laboratory findings, not elsewhere classified | CPT/HCPCS: 43248 ==

== ENCOUNTER 2023-05-30 12:16 | Outpatient (AMB) | payer OTHER, SELFPAY ==
[2023-05-30 12:28] VITALS: BP 105/56; PULSE 81; BMI 25.0
--- NOTE | 2023-05-30 12:28 | A.OFFVIS_ITS ---
Intake Vital Signs 05/30/23 12:28 Height 5 ft 9 in Weight 169 lb 8.568 oz BMI 25.0 BP 105/56 L Blood Pressure Location Lt brachial Position Sitting Pulse 81 Intake Visit Reasons: appointment made per . Intake Note: Ozzie presents in office as a est.patient for trouble swallowing PT CC: pt reports having minor abdominal pain pt denies any other GI Issues Community Engagement Leader Required: No Accompanied by: Spouse Allergies cisplatin [CISPLATIN] Allergy (Severe, Verified 05/30/23 12:29) ANAPHYLAXIS adhesive tape [ADHESIVE TAPE] Allergy (Intermediate, Verified 05/30/23 12:29) BLISTER/RASH Sulfa (Sulfonamide Antibiotics) Allergy (Unknown, Verified 05/30/23 12:29) Gastrointestinal Upset oxycodone [OXYCODONE] Adverse Reaction (Intermediate, Verified 05/30/23 12:29) GI UPSET HPI HPI Comments History of Present Illness Details 57 y.o M with x month of dysphagia, with 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 04/23/23: Started slowly with liquids almost 4 weeks ago where he felt pressure in his chest and has now gradually progressed to the point that he is not able to eat much of solids and unable to finish his meals. Assoc with nausea, burping, heartburn, occasional vomiting. Weight loss of 20 lbs in one month. Pt used to smoke almost 10 years ago 1PPD, quit etOH 9 ago. As aforementioned, does have hx of XRT in 2014 however reports this in his upper chest. UGIS noted with high grade stricture noted in lower esophagus just above GEJ. 04/26/23 - EGD: high grade stricture. Decision to bring him back for dilation under fluoro. 05/03/23 - EGD w/ fluoro: TTS wire guided balloon dilation however could only inflate to 2 constance (dilation to 8 mm is at 3 constance) due to significant resistance and tearing noted. ? 05/17/23 - EGD w/ fluoro: TTS wire guided balloon dilation to 8 mm at 3 constance. XP scope still could not be passed due to edema. 05/24/23 - EGD w/ fluoro: TTS wire guided balloon dilation to 8.5 mm at 3.5 constance. Large tear with exposed muscle fibers noted. XP scope still could not be passed due to edema. 05/30/23: Pt reports no significant change in swallowing since 05/17 (had the most improvement post this dilation). Diet restricted to liquids such as boost, pudding, ice cream etc. Weight curve continues to decline however pt remains resistant to even considering a G tube at this point despite extensive discussion that not much progress has been achieved in the last [address] Chest ordered at last EGD, still pending. PFSH Medical History Cancer of tongue Depression Hypothyroid Surgical History H/O colonoscopy History of esophagogastroduodenoscopy (EGD) Hx of tonsillectomy S/P cervical spinal fusion Family History Paternal Uncle Substance use disorder Paternal Uncle Substance use disorder Paternal Uncle Substance use disorder Paternal Uncle Substance use disorder Sister Substance use disorder Other Mental health disorder Social History Housing: House Are you a primary health care / medical job titles to a significant other at home: No Do you presently have visiting nurse or other home services: No Alcohol intake: never Patient Tobacco Use Status: Former Tobacco user e-Cigarette/Vaping Use: Never Used Second Hand Smoke Exposure: No Current occupational status: employed Cognitive needs: No Hearing needs: No Vision needs: No Review of Systems Const All systems reviewed & are unremarkable except as noted in HPI and below Physical Exam Vital Signs: Last Vital Signs Pulse 81 05/30/23 12:28 BP 105/56 L 05/30/23 12:28 BMI result Body Mass Index 25.0 Gen appear: NAD, undernourished HEENT: nonicteric, no cervical lymphadenopathy Chest: CTA CVS: Regular S1/S2 Abd: soft, nontender, nondistended, bowel sounds + Ext: no peripheral edema Neuro: A/Ox3, noted to move all extremities spontaneously Psych: interacting appropriately Assessment & Plan Assessment & Plan (1) Stricture esophagus: Code(s): K22.2 - Esophageal obstruction (2) Dysphagia: Code(s): R13.10 - Dysphagia, unspecified (3) History of radiation exposure: Code(s): Z92.3 - Personal history of irradiation Plan 1. Reviewed with the that DDx include benign (radiation, erosive) vs malignant stricture. Still have not been able to endoscopically evaluate the stricture itself as even the XP scope could not traverse through it despite dilation x 3. Strongly urged to consider G tube for nutrition while he is getting serial dilations, however pt remains hesitant. Also discussed seeking a referral to outside facility for second opinion which he is agreeable to. Plan: - Will refer to [facility] ([place]) for second opinion - In the meantime, will cont serial dilations here. Will try next dilation with [facility] for 06/01. - Cont PPI and liquid carafate - Pt encouraged to see medical tamale machine feeder for meal planning - Cont protein shakes - CT Chest pending and pt reminded to book this at the soonest Orders: Referrals Gastroenterology Referral K22.2 - Esophageal obstruction Medications: Discontinued sildenafil administer 60 minutes before intended activity 100 mg PO DAILY 30 days PRN 30 tabs 1RF sexual activity N52.9 - Male erectile dysfunction, unspecified Coding Level of Care Code Est Pt Level 4 (83510) Diagnoses Stricture esophagus K22.2 Dysphagia R13.10 History of radiation exposure Z92.3
== END 2023-05-30 13:27 | disposition home or self-care (01) ==
PROVIDERS: PCP Nurse Practitioner Family; Visit Provider Internal Medicine
DX: K22.2 Esophageal obstruction (principal); R13.10 Dysphagia, unspecified; Z92.3 Personal history of irradiation
CPT/HCPCS: 99214

== ENCOUNTER → 2023-05-30 12:16 | Outpatient (BNVA) | payer OTHER, SELFPAY | PROVIDERS: PCP Nurse Practitioner Family; Visit Provider Internal Medicine | DX: K22.2 Esophageal obstruction (principal); R13.10 Dysphagia, unspecified; Z92.3 Personal history of irradiation | CPT/HCPCS: 99212 ==

== ENCOUNTER 2023-06-01 12:47 | Day surgery (SDC) | payer OTHER, SELFPAY ==
--- NOTE | 2023-05-31 09:38 | P.CONAN_ITS ---
Documented by User: Suly Ramos NP 05/31/23 09:39 HPI - Anesthesia Eval Consult details Narrative: 57yo M for Upper Endoscopy with Balloon Dilitation, w/ flouroscopy s/p EGD with dilation 05/24/23 with GA-ETT 7 PMFSH Active Problems Active Problems: All Active Problems (Updated 05/17/23 @ 08:00 by Anabel Bustos RN) Hypothyroid (Acute) Right knee pain (Acute) Spermatocele (Acute) Erectile dysfunction (Acute) Physical exam (Acute) Screening PSA (prostate specific antigen) (Acute) Orchalgia (Acute) Neck pain (Acute) Strain of left trapezius muscle (Acute) Encounter for annual wellness visit (AWV) in Medicare patient (Acute) HTN (hypertension) (Acute) Hydronephrosis (Acute) Odynophagia (Acute) Injury of foot, left (Acute) Pain of left heel (Acute) Pain of right foot (Acute) Injury of right foot (Acute) Wrist pain, left (Acute) Swelling of left wrist (Acute) Acute pain (Acute) Peyronie's disease (Acute) Food sticks on swallowing (Acute) Stricture esophagus (Acute) Dysphagia (Acute) History of radiation exposure (Acute) Past Medical History Medical History Cancer of tongue Depression Hypothyroid Family History Family History Paternal Uncle Substance use disorder Paternal Uncle Substance use disorder Paternal Uncle Substance use disorder Paternal Uncle Substance use disorder Sister Substance use disorder Other Mental health disorder Family history of problems with anesthesia: No Surgical History Surgical History H/O colonoscopy History of esophagogastroduodenoscopy (EGD) Hx of tonsillectomy S/P cervical spinal fusion History of Problems with Anesthesia: No Social History Social History Housing: House Are you a primary healthcare science specialist to a significant other at home: No Do you presently have visiting nurse or other home services: No Alcohol intake: never Patient Tobacco Use Status: Former Tobacco user Tobacco use type: Cigarette e-Cigarette/Vaping Use: Never Used Second Hand Smoke Exposure: No Current occupational status: employed Cognitive needs: No Hearing needs: No Vision needs: No Meds Allergies Allergy/AdvReac Type Severity Reaction Status Date / Time cisplatin [CISPLATIN] Allergy Severe ANAPHYLAXIS Verified 06/01/23 13:03 adhesive tape [ADHESIVE TAPE] Allergy Intermediate BLISTER/LESTER Verified 06/01/23 13:03 H Sulfa (Sulfonamide Allergy Unknown Gastrointestinal Verified 06/01/23 13:03 Antibiotics) Upset oxycodone [OXYCODONE] AdvReac Intermediate GI UPSET Verified 06/01/23 13:03 Home Medications Medication Instructions Recorded Confirmed Last Taken Type sildenafil 100 mg tablet (Viagra) 100 mg PO DAILY PRN sexual activity 05/17/23 05/17/23 Unknown History Exam Exam Date and Time: May 31, 2023 0938 Pertinent Lab Results Pertinent Lab Results: Laboratory Tests 04/18/23 04/18/23 09:58 09:58 WBC 10.1 Hgb 14.1 Hct 41.4 L Plt Count 250 Sodium 142 Potassium 4.3 Chloride 106 Carbon Dioxide 29 BUN 14 Creatinine 1.10 Airway Heart: Assessment and Plan Assessment Anesthesia Assessment: Chart Reviewed Final Anesthetic Review Family History of Problems with Anesthesia: No History of Problems with Anesthesia: No Documented by User: Steph Mojica MD 06/01/23 14:19 PMFSH Past Medical History Medical History Cancer of tongue Depression Hypothyroid Family History Family History Paternal Uncle Substance use disorder Paternal Uncle Substance use disorder Paternal Uncle Substance use disorder Paternal Uncle Substance use disorder Sister Substance use disorder Other Mental health disorder Surgical History Surgical History H/O colonoscopy History of esophagogastroduodenoscopy (EGD) Hx of tonsillectomy S/P cervical spinal fusion Social History Social History Housing: House Are you a primary healthcare science specialist to a significant other at home: No Do you presently have visiting nurse or other home services: No Alcohol intake: never Patient Tobacco Use Status: Former Tobacco user Tobacco use type: Cigarette e-Cigarette/Vaping Use: Never Used Second Hand Smoke Exposure: No Current occupational status: employed Cognitive needs: No Hearing needs: No Vision needs: No Meds Allergies Allergy/AdvReac Type Severity Reaction Status Date / Time cisplatin [CISPLATIN] Allergy Severe ANAPHYLAXIS Verified 06/01/23 13:03 adhesive tape [ADHESIVE TAPE] Allergy Intermediate BLISTER/LESTER Verified 06/01/23 13:03 H Sulfa (Sulfonamide Allergy Unknown Gastrointestinal Verified 06/01/23 13:03 Antibiotics) Upset oxycodone [OXYCODONE] AdvReac Intermediate GI UPSET Verified 06/01/23 13:03 Home Medications Medication Instructions Recorded Confirmed Last Taken Type sildenafil 100 mg tablet (Viagra) 100 mg PO DAILY PRN sexual activity 05/17/23 05/17/23 Unknown History Exam Airway Mallampati Class: III TM Dist: >3cm Neck ROM: Limited Loose/Missing/Broken Teeth: No Heart: RRR Lungs: CTA Assessment and Plan Assessment Anesthesia Assessment: Anesthesia Plan Discussed Final Anesthetic Review NPO: Yes ASA Class: III Final Preanesthetic Review: Meds/Allgs Chart Reviewed, Consent Obtained/Reviewed and Anes Risks/Benef Reviewed Patient Risk: Intermediate Procedure Risk: Intermediate Anesthetic Plan Anesthetic Plan: GA Disposition: Standard PACU
[2023-06-01] VITALS (7 sets, daily range): BP systolic 103–117; BP diastolic 53–66; PULSE 50–61; RESP 16; TEMP 36.8–37.2; O2SAT 96–100; BMI 25.1
--- NOTE | ~2023-06-01 | FL_ITS ---
EXAMINATION: XR FLUOROSCOPY WITH IMAGES CLINICAL INFORMATION: Esophageal stricture. COMPARISON: Previous fluoroscopic exam May 2023 TECHNIQUE: Fluoroscopy Supervised By: Dr. Gloria Chamorro. Fluoroscopy Time: 95.1 seconds. Cumulative Dose: 27.18 mGy. DAP: Not available on machine. Images: 7. FINDINGS: Fluoroscopy guidance performed for upper endoscopy. Images demonstrate a scope with tip projecting over the proximal stomach. There is a device through the scope that projects over the mid stomach. FL/FL guidance in OR IMPRESSION: Fluoroscopy guidance for upper endoscopy procedure.
[2023-06-01] MEDS: Lactated Ringers 1,000 ML 100 ML IVCONT (13:17)
--- NOTE | 2023-06-01 14:29 | MHC.SHP ---
Pre-Procedural Eval Section A Date of Service: 06/01/23 The History & Physical has been completed within 30 days and I have reviewed it.: Yes Section B Chief Complaint: Esophageal obstruction Allergies: Allergies Allergy/AdvReac Type Severity Reaction Status Date / Time cisplatin [CISPLATIN] Allergy Severe ANAPHYLAXIS Verified 06/01/23 13:03 adhesive tape [ADHESIVE TAPE] Allergy Intermediate BLISTER/LESTER Verified 06/01/23 13:03 H Sulfa (Sulfonamide Allergy Unknown Gastrointestinal Verified 06/01/23 13:03 Antibiotics) Upset oxycodone [OXYCODONE] AdvReac Intermediate GI UPSET Verified 06/01/23 13:03 Plan Diagnosis/Plan: Unchanged I have reviewed the history and physical and performed a pertinent physical examination on my patient. No changes have occurred unless specified. Time Spent With Patient Time: Total time managing care of this patient today ____ minutes.
--- NOTE | 2023-06-01 15:42 | P.OP_ITS ---
Operative Note Operative Note Date of Service: 06/01/23 Narrative: Procedure: Esophagogastroduodenoscopy Endoscopist: Gloria Chamorro MD Indication: Dysphagia, esophageal stricture Anesthesia Provider: Steph Mojica MD Anesthesia Type: GEA Instrument: Olympus XP-scope and bronchoscope? EGD Procedure:?? The procedure, indications, preparation and potential complications were reviewed with the patient, who indicated understanding and gave written informed consent to proceed. A physical exam was performed. The patient was electivel intubated by anesthesia for airway protection. The endoscope was introduced through the mouth, and advanced to the lower part of the esophagus. The mucosa was carefully examined on slow withdrawal of the endoscope. The patient tolerated the procedure well. There were no immediate complications.? ? EGD Findings:? * Larynx: Fibrotic and atrophic appearance * Esophagus: High grade stricture was again encountered at 45 cm which could not be traversed with XP scope. Under fluoroscopic guidance, a soft-tipped Savary wire was advanced to the body of the stomach and the endoscope was then backed out. Savary-Guillard bougie was introduced over the wire and the esophageal stricture was gradually dilated from 7 mm to 9 mm. We then attempted to pass the XP scope through the stricture however it could still not pass. We then withdrew the XP scope and introduced the bronchoscope and that also could not traverse the stricture. EGD Impressions:? * High grade stricture at 45 cm?(Savary dilation) Recommendations:?? * Patient will likely need multiple sessions to achieve meaningful dilation of the esophagus. * CT chest with IV contrast pending * Pt hesitant to get G tube * Cont liquid diet * Magic mouthwash as needed for discomfort * Cont PPI, carafate liquid 1g PO QID Above has been reviewed with the patient.
== END 2023-06-01 16:42 | disposition home or self-care (01) ==
PROVIDERS: PCP Nurse Practitioner Family; Visit Provider Internal Medicine
PROC: (CPT 43248; principal; 2023-06-01 14:30)
DX: K22.2 Esophageal obstruction (principal); R13.10 Dysphagia, unspecified; F32.A Depression, unspecified; E03.9 Hypothyroidism, unspecified; Z85.810 Personal history of malignant neoplasm of tongue; Z92.21 Personal history of antineoplastic chemotherapy; Z92.3 Personal history of irradiation; Z79.899 Other long term (current) drug therapy; Z88.2 Allergy status to sulfonamides; Z88.8 Allergy status to other drugs, medicaments and biological substances; Z91.040 Latex allergy status; Z87.891 Personal history of nicotine dependence
CPT/HCPCS: 43248; C1769; J1100; J2250; J3010; Q9967

== ENCOUNTER → 2023-06-01 12:47 | Outpatient (BNV) | payer OTHER, SELFPAY | PROVIDERS: PCP Nurse Practitioner Family; Visit Provider Internal Medicine | DX: K22.2 Esophageal obstruction (principal) | CPT/HCPCS: 43245 ==

== ENCOUNTER 2023-06-07 10:01 | Outpatient (REF) | payer OTHER, SELFPAY ==
[2023-06-07 11:38] LABS: Anion Gap 18 (12-20); Blood Urea Nitrogen 15 mg/dL (9-16); Calcium 9.8 mg/dL (8.4-10.2); Carbon Dioxide 22 mmol/L (22-29); Chloride 106 mmol/L (96-108); Estimated Glomerular Filt Rate > 60; Glucose Random 87 mg/dL (60-115); Potassium 3.7 mmol/L (3.3-5.1); Sodium 142 mmol/L (135-145)
== END 2023-06-07 10:02 | disposition home or self-care (01) ==
LOC: HO.LAB 10:01
PROVIDERS: PCP Nurse Practitioner Family; Visit Provider Internal Medicine
DX: K22.2 Esophageal obstruction (principal)
CPT/HCPCS: 36415; 80048

== ENCOUNTER 2023-06-07 10:19 | Day surgery (SDC) | payer OTHER, SELFPAY ==
[2023-06-07 11:06] VITALS: BMI 24.4
--- NOTE | 2023-06-07 11:13 | MHC.SHP ---
Pre-Procedural Eval Section A Date of Service: 06/07/23 The History & Physical has been completed within 30 days and I have reviewed it.: Yes Section B Chief Complaint: Dysphagia, unspecified Allergies: Allergies Allergy/AdvReac Type Severity Reaction Status Date / Time cisplatin [CISPLATIN] Allergy Severe ANAPHYLAXIS Verified 06/01/23 13:03 adhesive tape [ADHESIVE TAPE] Allergy Intermediate BLISTER/LESTER Verified 06/01/23 13:03 H Sulfa (Sulfonamide Allergy Unknown Gastrointestinal Verified 06/01/23 13:03 Antibiotics) Upset oxycodone [OXYCODONE] AdvReac Intermediate GI UPSET Verified 06/01/23 13:03 Plan Diagnosis/Plan: Unchanged I have reviewed the history and physical and performed a pertinent physical examination on my patient. No changes have occurred unless specified. Time Spent With Patient Time: Total time managing care of this patient today ____ minutes.
--- NOTE | 2023-06-07 11:17 | P.OP_ITS ---
Operative Note Operative Note Date of Service: 06/07/23 Narrative: Procedure: Esophagogastroduodenoscopy Endoscopist: Gloria Chamorro MD Indication: Dysphagia, esophageal stricture Anesthesia Provider: Jesica Wood MD Anesthesia Type: GEA Instrument: Olympus [id number] and [id number] EGD Procedure:?? The procedure, indications, preparation and potential complications were reviewed with the patient, who indicated understanding and gave written informed consent to proceed. A physical exam was performed. The patient was electivel intubated by anesthesia for airway protection. The endoscope was introduced through the mouth, and advanced to the second portion of the duodenum. The mucosa was carefully examined on slow withdrawal of the endoscope. The patient tolerated the procedure well. There were no immediate complications.? ? EGD Findings:? * Larynx: Fibrotic and atrophic appearance * Esophagus: High grade stricture was again encountered at 45 cm which could not be traversed with XP scope. The scope was then changed out for regular gastroscope and a fixed-wire balloon was passed through the biopsy channel and then incrementally inflated from 8 mm to 10 mm. We were then able to pass the XP scope through the esophageal stricture which was 2 cm long and appeared ulcerated and friable. Spy bite forceps was passed through the XP scope and multiple biopsies were taken from the stricture. * Stomach: Erythema, edema and ulceration was noted in the cardia suspicious for gastric malignancy. Spy bite forceps was passed through the XP scope and multiple biopsies were taken from the abnormal mucosa in the cardia. * Duodenum: Normal duodenal mucosa to the extent visualised. EGD Impressions:? * High grade stricture at 45 cm?(balloon dilation, biopsy) * Abnormal mucosa in the cardia (biopsy) * Normal duodenal mucosa Recommendations:?? * Overall appearance suspicious for GEJ malignancy * CT chest with IV contrast pending from last visit. CT Abd and pelvis ordered a s well. * Cont liquid diet * Will await path results, will most likely need EUS evaluation * Cont PPI, carafate liquid 1g PO QID
--- NOTE | 2023-06-07 11:52 | HO.ANESPROP2 ---
HPI - Anesthesia Eval Consult details Narrative: 57 yo male patient for EGD PMFSH Active Problems Active Problems: All Active Problems (Updated 06/07/23 @ 11:06 by Jesica Olivares MD) Hypothyroid (Acute) Right knee pain (Acute) Spermatocele (Acute) Erectile dysfunction (Acute) Physical exam (Acute) Screening PSA (prostate specific antigen) (Acute) Orchalgia (Acute) Neck pain (Acute) Strain of left trapezius muscle (Acute) Encounter for annual wellness visit (AWV) in Medicare patient (Acute) HTN (hypertension) (Acute) Hydronephrosis (Acute) Odynophagia (Acute) Injury of foot, left (Acute) Pain of left heel (Acute) Pain of right foot (Acute) Injury of right foot (Acute) Wrist pain, left (Acute) Swelling of left wrist (Acute) Acute pain (Acute) Peyronie's disease (Acute) Food sticks on swallowing (Acute) Stricture esophagus (Acute) Dysphagia (Acute) History of radiation exposure (Acute) Past Medical History Medical History Cancer of tongue Depression Hypothyroid Family History Family History Paternal Uncle Substance use disorder Paternal Uncle Substance use disorder Paternal Uncle Substance use disorder Paternal Uncle Substance use disorder Sister Substance use disorder Other Mental health disorder Family history of problems with anesthesia: No Surgical History Surgical History H/O colonoscopy History of esophagogastroduodenoscopy (EGD) Hx of tonsillectomy S/P cervical spinal fusion History of Problems with Anesthesia: No Social History Social History Housing: House Are you a primary plant health care technician to a significant other at home: No Do you presently have visiting nurse or other home services: No Alcohol intake: never Patient Tobacco Use Status: Former Tobacco user Tobacco use type: Cigarette e-Cigarette/Vaping Use: Never Used Second Hand Smoke Exposure: No Advance Directives: No Advance Directives Information Provided: Yes Current occupational status: employed Cognitive needs: No Hearing needs: No Vision needs: No Meds Allergies Allergy/AdvReac Type Severity Reaction Status Date / Time cisplatin [CISPLATIN] Allergy Severe ANAPHYLAXIS Verified 06/01/23 13:03 adhesive tape [ADHESIVE TAPE] Allergy Intermediate BLISTER/LESTER Verified 06/01/23 13:03 H Sulfa (Sulfonamide Allergy Unknown Gastrointestinal Verified 06/01/23 13:03 Antibiotics) Upset oxycodone [OXYCODONE] AdvReac Intermediate GI UPSET Verified 06/01/23 13:03 Home Medications Medication Instructions Recorded Confirmed Last Taken Type sildenafil 100 mg tablet (Viagra) 100 mg PO DAILY PRN sexual activity 05/17/23 05/17/23 Unknown History Exam Exam Date and Time: June 07, 2023 1152 Height,Weight and Vital Signs: Height 5 ft 9 in Weight 74.843 kg T 98.0 P56 RR 18 BP 101/50 SP02 99% Airway Mallampati Class: II TM Dist: >3cm Neck ROM: Limited Partial: Upper Loose/Missing/Broken Teeth: Yes (Denies broken, loose teeth) Heart: RRR Lungs: CTAB Assessment and Plan Assessment Anesthesia Assessment: Anesthesia Plan Discussed and Chart Reviewed Final Anesthetic Review Family History of Problems with Anesthesia: No History of Problems with Anesthesia: No NPO: Yes ASA Class: III Final Preanesthetic Review: No Changes in Pt Med Stat, Meds/Allgs Chart Reviewed, Consent Obtained/Reviewed and Anes Risks/Benef Reviewed Patient Risk: Intermediate Procedure Risk: Intermediate Assessment/Block/Sedation in SS: Assess/Block/Sedation-SS Anesthetic Plan Anesthetic Plan: GA Disposition: Standard PACU
[2023-06-07 12:27] VITALS: BP 134/76; PULSE 67; RESP 16; TEMP 36.1; O2SAT 100
[2023-06-07 12:32] VITALS: BP 129/71; PULSE 65; RESP 16; O2SAT 100
[2023-06-07 12:37] VITALS: BP 127/73; PULSE 63; RESP 16; O2SAT 100
[2023-06-07 12:42] VITALS: BP 133/73; PULSE 67; RESP 16; O2SAT 100
[2023-06-07 12:57] VITALS: BP 117/74; PULSE 64; RESP 16; TEMP 36.4; O2SAT 99
== END 2023-06-07 13:39 | disposition home or self-care (01) ==
PROVIDERS: PCP Nurse Practitioner Family; Visit Provider Internal Medicine
PROC: 0DJ08ZZ Inspection of Upper Intestinal Tract, Via Natural or Artificial Opening Endoscopic (ICD-10-PCS; CPT 43235; principal; 2023-06-07 13:00)
DX: R13.10 Dysphagia, unspecified (principal); K22.2 Esophageal obstruction; C16.0 Malignant neoplasm of cardia; C15.9 Malignant neoplasm of esophagus, unspecified; Z85.810 Personal history of malignant neoplasm of tongue; Z92.21 Personal history of antineoplastic chemotherapy; Z92.3 Personal history of irradiation; F32.A Depression, unspecified; E03.9 Hypothyroidism, unspecified; L23.1 Allergic contact dermatitis due to adhesives; Z79.899 Other long term (current) drug therapy; Z88.2 Allergy status to sulfonamides; Z88.8 Allergy status to other drugs, medicaments and biological substances; Z87.891 Personal history of nicotine dependence
CPT/HCPCS: 43249; 43239; 88305; 88341; 88342; C1726; J1100; J2250; J2405; J3010

== ENCOUNTER → 2023-06-07 10:19 | Outpatient (BNV) | payer OTHER, SELFPAY | PROVIDERS: PCP Nurse Practitioner Family; Visit Provider Internal Medicine | DX: K22.2 Esophageal obstruction (principal); C15.9 Malignant neoplasm of esophagus, unspecified; C16.9 Malignant neoplasm of stomach, unspecified | CPT/HCPCS: 43239; 43249 ==

== ENCOUNTER 2023-06-18 08:49 | Inpatient (IN) | payer OTHER, SELFPAY ==
--- NOTE | ~2023-06-18 | FL_ITS ---
EXAMINATION: Upper GI with barium swallow CLINICAL INFORMATION: Esophageal cancer. Post dilatation. Rule out perforation. COMPARISON: Previous upper GI 04/18/[address] of the chest abdomen and pelvis from earlier the same day TECHNIQUE: Patient was administered oral Gastrografin contrast as requested by the ordering physician. Images were performed with the patient upright. FINDINGS: The esophagus is slightly dilated and fluid-filled. There is a severe stricture at the GE junction with near complete obstruction with only a small amount of contrast passing through this region into the stomach. No perforation is seen. FL/FL upper GI w air w Ba Swallow IMPRESSION: Severe stricture of the distal esophagus at the GE junction with only a small amount of oral contrast passing into the stomach. No evidence of perforation. Findings were communicated to Sabrina Cali by telephone on 06/18/2023 at 4:50 PM
--- NOTE | ~2023-06-18 | CT_ITS ---
EXAMINATION: CT chest, abdomen and pelvis with IV contrast. CLINICAL INDICATION: History of structures. COMPARISON: CT urogram 11/14/2021 TECHNIQUE: 5 mm thin axial and reformatted 3 mm thin sagittal and coronal reconstructed images of chest, abdomen and pelvis were obtained following IV 85 mL Omnipaque 350. DLP 806. This CT examination was performed using dose optimization technique as appropriate, variously including the following: Automated exposure control Adjustment of MA and/or KV according to patient size(this includes techniques or standardized protocols for targeted exams where dose is matched to indication/reason for exam; extremities or head. Use of iterative reconstruction techniques. FINDINGS: CHEST: LUNGS: Both lungs are fairly well-expanded and clear of acute pneumonic process. There are no pulmonary nodules, mass or consolidation. There is bilateral apical parenchymal scarring. Mediastinum: The thyroid lobes are symmetrical and normal. The central trachea and the bronchi appears widely patent. Heart size and the great vessels are normal caliber. There is a distended entire esophagus with fluid most likely secondary to is small stricture or narrowing at the GE junction. No abnormal size mediastinal or hilar lymph nodes seen. Pleura: There is no pleural effusion, thickening or calcification. Axilla: No abnormal size axillary lymph nodes seen. The chest wall is unremarkable. Osseous structures: No aggressive lytic or sclerotic process seen. Abdomen and pelvis: Liver, ducts and gallbladder: The liver is normal size, homogeneous in density and normal contour. No focal lesion or intrahepatic ductal dilatation seen. The gallbladder is unremarkable. Spleen: Unremarkable. Pancreas: Unremarkable. Adrenal glands: Unremarkable. Kidneys and ureter: Both kidney nephrograms are symmetrical in size, shape and position. No radiopaque renal calculi or hydroureteronephrosis seen. There is no perinephric stranding. Lymphovascular structures. The abdominal aorta is of normal caliber. There is a low-density matted abnormal aortocaval lymphadenopathy measuring 56 Hounsfield units. The largest lymph node measures 2.2 x 2.6 cm on axial image 30/6. There are additional lymph nodes adjacent to the GE junction. GI tract: There is a curvilinear structure along the lesser curvature of the stomach measuring 56 Hounsfield units and extends from the GE junction to the body the stomach. Normal stomach with mucosal pattern is seen in the left lateral aspect and continues into the pylorus and duodenum. This probably represents hematoma or seroma from recent stricture dilation or intervention.. This finding is new compared to last CT abdomen exam on 1022. The small bowel loops are unremarkable. There is scattered oral contrast and diverticuli in the colon without distention. Abdominal wall: Unremarkable. Pelvis: No free fluid. The prostate gland is normal size with central gland calcification. There is phlebolith in the left pelvis. No evidence of inguinal hernia or abnormal-sized adenopathy. There are surgical libby at the root of the scrotum. Osseous structures: There is no aggressive lytic or sclerotic process. The indices changes are seen at L5-S1 disc level. CT/CT abdomen pelvis w IV con IMPRESSION: 1. Distended esophageal with fluid most likely secondary to a stricture or narrowing at the GE junction. 2. There is abnormal aortocaval and GE junction lymphadenopathy. 3. There is a curvilinear structure along the lesser curvature of the stomach extending to the level of body of stomach. It most likely represents hematoma or seroma from recent dilation intervention of stricture. Recently diagnosed stomach cancer on endoscopy was noted. Patient has a known esophageal cancer extending inferiorly to the GE junction. 4. Scattered colonic diverticulosis without diverticulitis. 5. Unremarkable CT chest exam. 6. Results were discussed with Sabrina CARMONA in the ED by phone at 3:00 PM
[2023-06-18 08:57] VITALS: BP 144/91; PULSE 100; RESP 18; TEMP 36.6; O2SAT 96; BMI 21.9
[2023-06-18 09:23] LABS: MANUAL DIFF FLAG NO
[2023-06-18 09:24] LABS: Basophils Absolute Auto 0.1 X10*3/uL (0.0-0.2); Basophils Percent Auto 0.4 % (0-2); Eosinophils Absolute Auto 0.1 X10*3/uL (0.0-0.4); Eosinophils Percent Auto 0.6 % (0-4); Hematocrit 41.8 % (42.0-52.0); Hemoglobin 14.3 g/dl (14.0-18.0); Imm Gran Abs Auto 0.06 X10*3/uL (0.00-0.03); Imm Gran Pct Auto 0.5 % (0.0-0.4); Lymphocytes Absolute Auto 1.5 X10*3/uL (1.2-4.9); Lymphocytes Percent Auto 11.3 % (20-40); Mean Corpuscular HGB Conc 34.2 g/dl (31.0-36.0); Mean Corpuscular Hemoglobin 32.1 pg (27.0-33.0); Mean Corpuscular Volume 93.7 fL (80.0-98.0); Mean Platelet Volume 11.1 fL (9.4-12.4); Monocytes Absolute Auto 0.8 X10*3/uL (0.1-1.2); Monocytes Percent Auto 6.2 % (2-11); Neutrophils Absolute Auto 10.6 x10*3/uL (2.0-8.3); Platelet Count 246 X10*3/uL (160-400); Red Blood Count 4.46 X10*6/uL (4.60-5.80); Red Cell Distribution Width 12.3 % (11.0-16.0); White Blood Count 13.1 X10*3/uL (4.8-10.8)
[2023-06-18 09:50] LABS: Alanine Aminotransferase 15 U/L (0-40); Albumin Level 4.8 g/dL (3.5-5.0); Alkaline Phosphatase 73 U/L (39-117); Anion Gap 19 (12-20); Aspartate Amino Transferase 20 U/L (5-37); Bilirubin Total 0.7 mg/dL (0.0-1.0); Blood Urea Nitrogen 43 mg/dL (9-16); Calcium 10.9 mg/dL (8.4-10.2); Carbon Dioxide 24 mmol/L (22-29); Chloride 109 mmol/L (96-108); Creatinine Clr Calc Pharmacy 54.2; Estimated Glomerular Filt Rate 50; Glucose Random 115 mg/dL (60-115); Potassium 3.5 mmol/L (3.3-5.1); Sodium 148 mmol/L (135-145); Total Protein 8.3 g/dL (6.5-8.0)
--- NOTE | 2023-06-18 10:03 | ED.GENADULT ---
HPI - General Adult General Chief complaint: General Medical Stated complaint: unable to keep anything down vomiting Time Seen by Provider: 06/18/23 09:57 Source: patient and RN notes reviewed Mode of arrival: ambulatory Limitations: no limitations History of Present Illness HPI narrative: This is a 57-year-old male, with a past medical history of esophageal cancer, hypothyroidism, hypertension, esophageal strictures, presenting to the emergency department due to inability to keep food or liquids down x 1 week. Patient is a patient of Dr. Chamorro, with had multiple balloon dilation and biopsies, last performed on June 07, 2023. He states that he has been unable to tolerate liquids for the last week. He is feeling very dehydrated. He denies any fevers, chills, chest pain, shortness of breath, abdominal pain, nausea and diarrhea. He tried reaching out to Dr. Chamorro as there is a discussion for a G-tube however patient has refused until now. Patient has had profound weight loss since March, was previously 205 lb is now weighing in the 150s. No other complaints or concerns at this time. MD complaint: Unable to tolerate PO Radiation: non-radiation Severity: mild Pain Consistency: constant Relieving factors: none Exacerbating factors: none Associated symptoms: denies other symptoms Treatments prior to arrival: none Related Data Home Medications Medication Instructions Recorded Confirmed levothyroxine 25 mcg tablet 50 mcg PO SUTH 06/18/23 06/18/23 levothyroxine 25 mcg tablet 25 mcg PO MOTUWEFRSA 06/18/23 06/18/23 (Levo-T) Previous Rx's Medication Instructions Recorded Magic Mouthwash 10 ml PO TID PRN pain 2 days #240 05/03/23 Diphen/Lido/Antacid 1:1:1 240 mL mL suspension omeprazole 20 mg capsule,delayed 20 mg PO BID #180 caps 05/17/23 release sucralfate 100 mg/mL oral 10 ml PO QID 4 weeks #1,120 mL 05/17/23 suspension Allergies Allergy/AdvReac Type Severity Reaction Status Date / Time cisplatin [CISPLATIN] Allergy Severe ANAPHYLAXIS Verified 06/19/23 10:21 adhesive tape [ADHESIVE TAPE] Allergy Intermediate BLISTER/LESTER Verified 06/19/23 10:21 H Sulfa (Sulfonamide Allergy Unknown Gastrointestinal Verified 06/19/23 10:21 Antibiotics) Upset oxycodone [OXYCODONE] AdvReac Intermediate GI UPSET Verified 06/19/23 10:21 Review of Systems Review of Systems: Yes all other systems are reviewed and are negative Constitutional: Constitutional: Reports as per [facility] Past Medical History Medical History (Updated 06/21/23 @ 11:01 by Rosario Youngblood PA-C) Cancer of tongue Depression Hypothyroid Surgical History (Updated 06/21/23 @ 11:01 by Rosario Youngblood PA-C) Gastrostomy tube in place History of colonoscopy History of epididymectomy History of esophagogastroduodenoscopy (EGD) History of fusion of cervical spine History of tonsillectomy Family History Family History Paternal Uncle Substance use disorder Paternal Uncle Substance use disorder Paternal Uncle Substance use disorder Paternal Uncle Substance use disorder Sister Substance use disorder Other Mental health disorder Social History Social History Household Members: Spouse Housing: House Are you a primary direct care supervisor to a significant other at home: No Do you presently have visiting nurse or other home services: No Alcohol intake: never Patient Tobacco Use Status: Former Tobacco user Tobacco use type: Cigarette e-Cigarette/Vaping Use: Never Used Second Hand Smoke Exposure: No service: No Current occupational status: employed Cognitive needs: No Hearing needs: No Vision needs: No Physical Exam ED Vital Signs: Vital Signs - 24 hr 06/18/23 11:47 06/18/23 14:38 Pulse Rate 62 62 Respiratory Rate 16 16 Blood Pressure 143/80 H 160/84 H Pulse Oximetry 97 98 Oxygen Delivery Method Room Air Room Air BMI result Body Mass Index 21.9 Const General: cooperative, comfortable and no acute distress Orientation/consciousness: patient oriented x3 Limitations: no limitations HENMT Other: Dry mucous membranes Head: Yes normal to inspection, Yes normocephalic and Yes atraumatic Ears: hearing grossly normal bilaterally General nose exam: Normal external nose present Face and sinus: Yes normal facial exam Mouth: Normal oral and palatal mucosa present, oropharynx normal and moist mucous membranes Throat: Yes posterior oropharynx normal Eyes General: appearance normal, both eyes and all related structures Eyelids: Yes eyelids normal Conjunctivae: conjunctivae normal Sclerae: sclerae normal Pupils: Equal, round and reactive pupils present EOM: EOMs intact bilaterally Neck Neck: Yes normal visual inspection, Yes full ROM and Yes no lymphadenopathy Lymphatic: no lymphadenopathy noted Chest Chest palpation & inspection: normal inspection of the chest Resp Other: Coarse crackles heard in the right lower base. No wheezes or rhonchi Effort & Inspection: normal respiratory effort and able to speak in complete sentences Auscultation: clear to auscultation bilaterally, no crackles, no rales, no rhonchi and no wheezes Cardio Rate: regular rate Rhythm: regular rhythm Heart sounds: S1 normal heart sound present and S2 normal heart sound present GI Other: Abdomen is soft, NT, ND. Inspection: Yes normal to inspection Percussion: Yes normal to percussion Auscultation: normal bowel sounds Skin General skin exam: no rashes or lesions noted Trauma: no lacerations or abrasions Wounds: no wounds Neuro General: patient oriented x3 and moves all extremities Cranial nerves: Yes Equal, round and reactive pupils present Extrem General: Yes normal to inspection Right upper extremity: normal to inspection Left upper extremity: normal to inspection Right lower extremity: normal to inspection Left lower extremity: normal to inspection Course Reevaluation(s) Reevaluation #1: Patient receiving 2 L of IV fluids. Pending CT scan of chest and abdomen. Time: 11:50 Reevaluation #2: Patient received 2 L of IV fluids, CT chest and abdomen being performed at this moment. Patient remains stable, vital signs within normal limits. Time: 12:52 Reevaluation #3: Spoke to Dr. Chamorro pending CT scan results. She recommends hospital admission with IR consult with G tube as well as consult Oncology. The surgical specimens that were collected on 06/07/2023 from the stomach cardia revealing invasive squamous cell carcinoma, esophageal stricture biopsy revealing invasive squamous cell carcinoma. Discussed case with hospitalist, Dr. Dobbs who requests waiting for the CT radiology report. Time: 13:09 Additional Reevaluation(s): Spoke to [facility] this, Dr. Lion, who expresses concerns for questionable rupture at the GE junction. Spoke to my attending physician, Dr. Chamberlain, who recommends IV protonix and IV zosyn. Will obtain type and screen, PT, PTT. I spoke to Dr. Melendez, who recommends getting esophagram to rule out esophageal perforation. 06/18/2023 1653 - Received call from [facility], Dr. Guevara, reporting no perforation seen on esophagram, but nearly completely obstructed. Informed attending physician, Dr. Chamberlain and Dr. Melendez. Will admit to medicine at this time. Pt will likely need G tube placement per Dr. Melendez. Transfer of care initiated. Medications Administered Generic Name Dose Route Start Last Admin Trade Name Freq PRN Reason Stop Dose Admin Hydromorphone HCl 0.25 mg 06/19/23 13:11 06/19/23 13:21 Hydromorphone Hcl 0.5 Mg/0.5 Ml Syringe IVPUSH 0.25 mg Q5M PRN Administration Pain, Severe (Pain Scale 7-10) Protocol Levothyroxine Sodium 25 mcg 06/19/23 06:00 06/20/23 05:54 Levothyroxine Sodium 25 Mcg Tablet PO 25 mcg MoTuWeFrSa@0600 TATE Administration Levothyroxine Sodium 50 mcg 06/21/23 06:00 06/21/23 05:40 Levothyroxine Sodium 50 Mcg Tablet PO 50 mcg SuTh@0600 TATE Administration Morphine Sulfate 3 mg 06/19/23 12:35 06/21/23 02:12 Morphine Sulfate 4 Mg/Ml Cartridge IVPUSH 3 mg Q4H PRN Administration Pain, Severe (Pain Scale 7-10) Protocol Oxycodone HCl 5 mg 06/19/23 12:35 06/21/23 05:40 Oxycodone Hcl Immed Release 5 Mg Tablet PO 5 mg Q4H PRN Administration Pain, Moderate(Pain Scale 4-6) Pantoprazole Sodium 40 mg 06/19/23 06:30 06/21/23 05:37 Pantoprazole Sodium 40 Mg/10 Ml Vial IVPUSH 40 mg BID@0630,1630 [facility] Administration Sodium Chloride 3 ml 06/18/23 16:00 06/21/23 08:06 0.9 % Sodium Chloride Flush 3 Ml Syringe IVFLUSH Not Given QSHIFT [facility] Sucralfate 1 gm 06/18/23 17:00 06/21/23 08:06 Sucralfate Oral Suspension 1 Gm/10 Ml Oral.Susp PO 1 gm QID TATE Administration Discontinued Medications Generic Name Dose Route Start Last Admin Trade Name Freq PRN Reason Stop Dose Admin Diatrizoate Meglum/Diatrizoate Sod 120 ml 06/18/23 17:03 06/18/23 17:05 Diatrizoate Meglumine, Sodium 120 Ml Solution PO 06/18/23 17:04 120 ml ONCE ONE Administration Heparin Sodium (Porcine) 5,000 unit 06/18/23 16:00 06/19/23 05:02 Heparin Sodium,Porcine 5,000 Unit/Ml Vial SUBCUT Not Given Q12H TATE Sodium Chloride 1,000 mls @ 999 mls/hr 06/18/23 10:13 06/18/23 11:43 Ns IV 06/18/23 11:13 Infused .Q1H1M ONE Infusion Sodium Chloride 1,000 mls @ 999 mls/hr 06/18/23 10:41 06/18/23 12:42 Ns IV 06/18/23 11:41 Infused .Q1H1M ONE Infusion Sodium Chloride 1,000 mls @ 999 mls/hr 06/18/23 15:00 06/18/23 20:23 Ns IV 06/18/23 17:00 Infused .Q1H1M TATE Infusion Piperacillin Sod/Tazobactam 50 mls @ 100 mls/hr 06/18/23 17:00 06/21/23 06:17 Sod 3.375 gm/ Sodium Chloride IV Infused Q6H TATE Infusion Vancomycin HCl 1,000 mg/ 535 mls @ 267.5 mls/hr 06/18/23 16:20 06/18/23 22:03 Vancomycin HCl 750 mg/ Sodium IV 06/18/23 18:19 Infused Chloride ONCE ONE Infusion Vancomycin HCl 1,000 mg/ 270 mls @ 270 mls/hr 06/19/23 07:00 06/19/23 07:39 Sodium Chloride IV Infused Q12H TATE Infusion Vancomycin HCl 1,250 mg/ 250 mls @ 166.667 mls/hr 06/19/23 19:00 06/21/23 08:06 Sodium Chloride IV Infused Q12H TATE Infusion Iohexol 100 ml 06/18/23 12:59 06/18/23 12:59 Iohexol 350 Mg/Ml 100 Ml Infus..Btl IV 06/18/23 13:00 85 ml ONCE ONE Administration Pantoprazole Sodium 40 mg 06/18/23 15:24 06/18/23 18:04 Pantoprazole Sodium 40 Mg/10 Ml Vial IVPUSH 06/18/23 15:25 40 mg ONCE ONE Administration Potassium Chloride 40 meq 06/20/23 10:30 06/21/23 02:12 Potassium Chloride Packet 20 Meq Packet G-TUBE 06/21/23 02:31 40 meq Q8H TATE Administration Medical Decision Making Medical Decision Making [facility] Narrative: 57-year-old male presenting to the emergency department for evaluation of inability to tolerate p.o. x1 week. Patient has a history of esophageal strictures which she has had multiple dilations for. Most recent 1 was June 07, 2023. He states that he is unable to keep liquids down not because of nausea but because it stays stuck in his esophagus. He states he can not even swallow water. He is feeling very dehydrated. Denies any fevers, chills, abdominal pain. Patient mildly hypertensive at 144/91. Plan: IV hydration, contact Dr. Chamorro I spoke to Dr. Chamorro, who recommends obtaining CT chest and CT abdomen with contrast. Given patient slight TODD likely due to dehydration, will pre hydrate prior to CT scan imaging. Differential Diagnosis Differential Diagnoses: The differential diagnosis associated with the presentation includes TODD, renal failure, esophageal stricture, dehydration, electrolyte abnormality Admission/Observation Consideration of admission/observation: Escalation of care including admission/observation considered Patient admitted secondary to esophageal obstruction causing acute kidney injury which was reversed with IV fluids today Consult Healthcare Provider Management of the patient was discussed with: Hospitalist and Foot Cutter EVERARDO Velazquez Dr[address] Hospitalist Dr. Chamorro - GENNA Melendez - general surgery Lab Data [facility] Lab Attestation statement: I reviewed the patient's lab results. Mildly elevated white blood cell count, patient hyponatremic at 148, with a creatinine of 1.45 and a BUN of 43. Indicating acute kidney injury secondary to dehydration 06/18/23 09:19 06/18/23 09:19 Labs: Lab Results 06/18/23 06/18/23 Range/Units 09:19 09:19 WBC 13.1 H (4.8-10.8) X10*3/uL RBC 4.46 L (4.60-5.80) X10*6/uL Hgb 14.3 (14.0-18.0) g/dl Hct 41.8 L (42.0-52.0) % MCV 93.7 (80.0-98.0) fL MCH 32.1 (27.0-33.0) pg MCHC 34.2 (31.0-36.0) g/dl RDW 12.3 (11.0-16.0) % Plt Count 246 (160-400) X10*3/uL MPV 11.1 (9.4-12.4) fL Immature Gran % (Auto) 0.5 H (0.0-0.4) % Neut % (Auto) 81.0 H (45-73) % Lymph % (Auto) 11.3 L (20-40) % Pope % (Auto) 6.2 (2-11) % Eos % (Auto) 0.6 (0-4) % Baso % (Auto) 0.4 (0-2) % Lymph # (Auto) 1.5 (1.2-4.9) X10*3/uL Pope # (Auto) 0.8 (0.1-1.2) X10*3/uL Eos # (Auto) 0.1 (0.0-0.4) X10*3/uL Baso # (Auto) 0.1 (0.0-0.2) X10*3/uL Abs Immat Gran (auto) 0.06 H (0.00-0.03) X10*3/uL Absolute Neuts (auto) 10.6 H (2.0-8.3) x10*3/uL Absolute Nucleated RBC 0.000 (0.0-0.012) X10*3/uL Nucleated RBC % (auto) 0.0 (0.0-0.2) /100WBC Sodium 148 H (135-145) mmol/L Potassium 3.5 (3.3-5.1) mmol/L Chloride 109 H (96-108) mmol/L Carbon Dioxide 24 (22-29) mmol/L Anion Gap 19 (12-20) BUN 43 H (9-16) mg/dL Creatinine 1.45 H (0.5-1.4) mg/dL Estim Creat Clear Calc 54.2 Estimated GFR 50 Random Glucose 115 (60-115) mg/dL Calcium 10.9 H D (8.4-10.2) mg/dL Total Bilirubin 0.7 (0.0-1.0) mg/dL AST 20 (5-37) U/L ALT 15 (0-40) U/L Alkaline Phosphatase 73 (39-117) U/L Total Protein 8.3 H (6.5-8.0) g/dL Albumin 4.8 (3.5-5.0) g/dL Radiology Impression Discussion of test interpretation with radiology: I have reviewed the radiologist's reading. Radiologist Impression: EXAMINATION: CT chest, abdomen and pelvis with IV contrast. CLINICAL INDICATION: History of structures. COMPARISON: CT urogram 11/14/2021 TECHNIQUE: 5 mm thin axial and reformatted 3 mm thin sagittal and coronal reconstructed images of chest, abdomen and pelvis were obtained following IV 85 mL Omnipaque 350. DLP 806. This CT examination was performed using dose optimization technique as appropriate, variously including the following: Automated exposure control Adjustment of MA and/or KV according to patient size(this includes techniques or standardized protocols for targeted exams where dose is matched to indication/reason for exam;? extremities or head. Use of iterative reconstruction techniques. FINDINGS: CHEST: LUNGS: Both lungs are fairly well-expanded and clear of acute pneumonic process. There are no pulmonary nodules, mass or consolidation. There is bilateral apical parenchymal scarring. Mediastinum: The thyroid lobes are symmetrical and normal. The central trachea and the bronchi appears widely patent. Heart size and the great vessels are normal caliber. There is a distended entire esophagus with fluid most likely secondary to is small stricture or narrowing at the GE junction. No abnormal? size mediastinal or hilar lymph nodes seen. Pleura: There is no pleural effusion, thickening or calcification. Axilla: No abnormal size axillary lymph nodes seen. The chest wall is unremarkable. Osseous structures: No aggressive lytic or sclerotic process seen. Abdomen and pelvis: Liver, ducts and gallbladder: The liver is normal size, homogeneous in density and normal contour. No focal lesion or intrahepatic ductal dilatation seen. The gallbladder is unremarkable. Spleen: Unremarkable. Pancreas: Unremarkable. Adrenal glands: Unremarkable. Kidneys and ureter: Both kidney nephrograms are symmetrical in size, shape and position. No radiopaque renal calculi or hydroureteronephrosis seen. There is no perinephric stranding. Lymphovascular structures. The abdominal aorta is of normal caliber. There is a low-density matted abnormal aortocaval lymphadenopathy measuring 56 Hounsfield units. The largest lymph node measures 2.2 x 2.6 cm on axial image 30/6. There are additional lymph nodes adjacent to the GE junction. GI tract: There is a curvilinear structure along the lesser curvature of the stomach measuring 56 Hounsfield units and extends from the GE junction to the body the stomach. Normal stomach with mucosal pattern is seen in the left lateral aspect and continues into the pylorus and duodenum. This probably represents hematoma or seroma from recent stricture dilation or intervention.. This finding is new compared to last CT abdomen exam on 1021. The small bowel loops are unremarkable. There is scattered oral contrast and diverticuli in the colon without distention. Abdominal wall: Unremarkable. Pelvis: No free fluid. The prostate gland is normal size with central gland calcification. There is phlebolith in the left pelvis. No evidence of inguinal hernia or abnormal-sized adenopathy. There are surgical libby at the root of the scrotum. Osseous structures: There is no aggressive lytic or sclerotic process. The indices changes are seen at L5-S1 disc level. CT/CT abdomen pelvis w IV con IMPRESSION: 1.? Distended esophageal with fluid most likely secondary to a stricture or narrowing at the GE junction. 2.? There is abnormal aortocaval and GE junction lymphadenopathy. 3.? There is a curvilinear structure along the lesser curvature of the stomach extending to the level of body of stomach. It most likely represents hematoma or seroma from recent dilation intervention of stricture. Recently diagnosed stomach cancer on endoscopy was noted. Patient has a known esophageal cancer extending inferiorly to the GE junction. 4.? Scattered colonic diverticulosis without diverticulitis. 5.? Unremarkable CT chest exam. ? 6.? Results were discussed with Sabrina CARMONA in the ED by phone at 3:00 PM ? Dictated By: David Musa MD External Record Review External record reviewed: Inpatient record, Office record, Outpatient record, Prior outpatient labs, Prior outpatient radiology, Primary care record and Outside ED record Extensive review of office visits and operative notes performed by Dr. Koki tidwell. Most recent performed on June 07, 2023 Prescription Management I considered prescription management with: Antibiotic Antibiotic was considered given questionable GE junction perforation Chronic Conditions Patient?s care impacted by: Cancer Patient's care was impacted by history of esophageal cancer Attestation Attending Attestation: I reviewed SENIOR AGRICULTURAL ASSISTANT/PA/Resident note, assessment and plan. I agree with the documentation, assessment and plan unless otherwise stated. I personally evaluated the patient. He is overall well-appearing, slightly dehydrated. Abdomen soft and nontender. I discussed results with the patient. We also discussed the plan. GI is involved and general surgery is also involved. Patient will be receiving Zosyn and pantoprazole prophylactically at this point. We will continue IV fluids. All questions were addressed and answered at this time. Critical Care Time Critical Care Time Critical Care Time: Yes Total Critical Care Time: 60 Attestation: I have personally provided critical care time exclusive of time spent on separately billable procedures. Time includes review of lab data, radiology results, discussion with consultants, and monitoring for potential decompensation. Intervention performed as documented. Discharge Plan Discharge Clinical Impression: Dysphagia, Esophageal cancer, Acute esophageal obstruction Patient Disposition: Admitted As Inpatient Interventions: Admission Worksheet (ED) Last Done: 06/18/23 19:42 Discharge Date/Time: 06/18/23 19:46
[2023-06-18] MEDS: 0.9 % Sodium Chloride 1,000 ML 999 ML IV ×4 (10:47→18:09)
[2023-06-18 11:47] VITALS: BP 143/80; PULSE 62; RESP 16; O2SAT 97
--- NOTE | 2023-06-18 12:34 | P.CNGI_ITS ---
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 To recap pt was seen in April for difficulty swalllowing solids and weight loss. Underwent serial EGDs with dilation subsequently and eventually were able to pass the scope through the stricture on EGD 06/07 which showed malignant appearing stricture at GEJ with involvement of the gastric cardia. He is awaiting Oncology evaluation through [facility] as well as staging scans. Presented to the ER for difficulty keeping anything down, including liquids now x 2-3 days leading to severe dehydration and weakness. Was noted to be tachycardiac on exam. Labs with significant hypernatremia and TODD. EGD 06/07/23: * Larynx: Fibrotic and atrophic appearance * Esophagus: High grade stricture was again encountered at 45 cm which could not be traversed with XP scope. The scope was then changed out for regular gastroscope and a fixed-wire balloon was passed through the biopsy channel and then incrementally inflated from 8 mm to 10 mm. We were then able to pass the XP scope through the esophageal stricture which was 2 cm long and appeared ulcerated and friable. Spy bite forceps was passed through the XP scope and multiple biopsies were taken from the stricture. * Stomach: Erythema, edema and ulceration was noted in the cardia suspicious for gastric malignancy. Spy bite forceps was passed through the XP scope and multiple biopsies were taken from the abnormal mucosa in the cardia. * Duodenum: Normal duodenal mucosa to the extent visualised.? Path: A.? Stomach, cardia, biopsy: -?Invasive squamous cell carcinoma, poorly differentiated. - Background squamous epithelium and cardiac type mucosa with chronic inflammatory changes. - Negative for H. pylori. B.? Esophagus, stricture, biopsy: -?Invasive squamous cell carcinoma, poorly differentiated. - Small fragment of cardiac-type mucosa with mild chronic inactive inflammation. Review of Systems Review of Systems: Yes all other systems are reviewed and are negative PMFSH Past Medical History Medical History Cancer of tongue Depression Hypothyroid Family History Family History Paternal Uncle Substance use disorder Paternal Uncle Substance use disorder Paternal Uncle Substance use disorder Paternal Uncle Substance use disorder Sister Substance use disorder Other Mental health disorder Surgical History Surgical History H/O colonoscopy History of esophagogastroduodenoscopy (EGD) Hx of tonsillectomy S/P cervical spinal fusion Social History Social History Housing: House Are you a primary critical care paramedic to a significant other at home: No Do you presently have visiting nurse or other home services: No Alcohol intake: never Patient Tobacco Use Status: Former Tobacco user Tobacco use type: Cigarette Smoked in Last 30 Days: No e-Cigarette/Vaping Use: Never Used Second Hand Smoke Exposure: No Use of substances other than those prescribed or required for medical reasons: No Advance Directives: No Advance Directives Information Provided: Yes Current occupational status: employed Cognitive needs: No Hearing needs: No Vision needs: No Meds Allergies Allergy/AdvReac Type Severity Reaction Status Date / Time cisplatin [CISPLATIN] Allergy Severe ANAPHYLAXIS Verified 06/01/23 13:03 adhesive tape [ADHESIVE TAPE] Allergy Intermediate BLISTER/LESTER Verified 06/01/23 13:03 H Sulfa (Sulfonamide Allergy Unknown Gastrointestinal Verified 06/01/23 13:03 Antibiotics) Upset oxycodone [OXYCODONE] AdvReac Intermediate GI UPSET Verified 06/01/23 13:03 Home Medications Medication Instructions Recorded Confirmed Last Taken Type sildenafil 100 mg tablet (Viagra) 100 mg PO DAILY PRN sexual activity 05/17/23 05/17/23 Unknown History Physical Exam Vital Signs: Vital Signs: Last Vital Signs Temp 97.9 F 06/18/23 08:57 Pulse 62 06/18/23 11:47 Resp 16 06/18/23 11:47 BP 143/80 H 06/18/23 11:47 Pulse Ox 97 06/18/23 11:47 O2 Del Method Room Air 06/18/23 11:47 BMI result Body Mass Index 21.9 Gen appear: NAD, undernourished HEENT: nonicteric Chest: CTA CVS: Regular S1/S2 Abd: soft, nontender, nondistended, bowel sounds + Ext: no peripheral edema Neuro: A/Ox3, noted to move all extremities spontaneously Psych: interacting appropriately Results Labs 06/18/23 09:19 06/18/23 09:19 Labs: Short CBC 06/18/23 Range/Units 09:19 WBC 13.1 H (4.8-10.8) X10*3/uL Hgb 14.3 (14.0-18.0) g/dl Hct 41.8 L (42.0-52.0) % Plt Count 246 (160-400) X10*3/uL BMP 06/18/23 09:19 Sodium 148 H Potassium 3.5 Chloride 109 H Carbon Dioxide 24 BUN 43 H Creatinine 1.45 H Calcium 10.9 H D Liver Function 06/18/23 Range/Units 09:19 Total Bilirubin 0.7 (0.0-1.0) mg/dL AST 20 (5-37) U/L ALT 15 (0-40) U/L Alkaline Phosphatase 73 (39-117) U/L Albumin 4.8 (3.5-5.0) g/dL Assessment and Plan (1) Cancer of esophagus: Status: Acute (2) Stricture esophagus: Status: Acute (3) Dysphagia: Status: Acute Plan Pt has malignant stricture of the lower esophagus due to SCC ? denovo vs metachronous met from previous base of tongue SCC. Management will be contingent on extent of disease. Recommendations: - IV resuscitation and hydration - Once TODD improves will need CT chest, abd and pel with contrast - Discussed with the pt that if no evidence of mets and has localised disease only, will favor esophageal stent placement. However pt quite hesitant to pursue currently. - If he does have evidence of advanced disease, then would recommend G tube placement (which should be done by IR to avoid risk of tumor implantation) - Will also recommend Oncology and thoracic surgery consultation Thank you for allowing me to participate in his care. Please do not hesitate to contact with any questions or concerns. Time Spent With Patient Time: Total time managing care of this patient today ____ minutes. Procedures Date of Service Date of Service: 06/18/23
[2023-06-18] MEDS: iohexoL 350 MG/ML 100 ML INFUS..BTL IV (12:59)
--- NOTE | 2023-06-18 14:33 | PC.NURSE ---
pt a&o x4, pleasant, calm, and cooperative. 20G IV placed to the LAC. fluids hung per jan. pt to CT scan with contrast after 2L of fluid. at bedside. pt requests sips of water, provider approved. call argueta within reach. all pt needs met at this time. pt resting quietly on stretcher in no apparent distress. rr even/unlabored
[2023-06-18 14:38] VITALS: BP 160/84; PULSE 62; RESP 16; O2SAT 98
--- NOTE | 2023-06-18 15:25 | PHA.MEDREC ---
Pharmacy Consult ? Medication Reconciliation Pharmacy has completed the medication reconciliation. spoke with patient and . He reports stopping certain medications due to the fact he cannot swallow and keep things down.
--- NOTE | 2023-06-18 15:41 | P.HPHOSP_ITS ---
History of Present Illness Date of Service: 06/18/23 <MATHEW Velazquez - Last Filed: 06/18/23 16:14> Attending physician on admission: Aaron Puentes <MATHEW Velazquez Last Filed: 06/18/23 16:14> Chief Complaint: po intolerence <MATHEW Velazquez Last Filed: 06/18/23 16:14> 57 year old male with history of throat cancer, hypothyroidism, and newly diagnosed SCC stomach presented to the ED for evaluation of dysphagia and po intolerance. States symptoms have been going on for about 3 months but over the last week and not been able to eat or drink much over the last week. He has been following with GI and has had multiple dilitations of what was thought to be an esophageal stricture. However, recent biopsy on 06/07 showed invasive SCC. He has not yet established with an oncologist. On arrival, VSS. Mild leukocytosis 13.1. Creat 1.45, baseline 0.83. BUN 43, Na 148, Cl 109, Ca 10.9, lytes otherwise WNL. CT chest w/ contrast and CT abd/pelvis w/ contrast ordered showing distended esophageal with fluid likely 2/2 stricture or narrowing at GE junction. There is also abnormal aortocaval and GE junction lymphadenopathy and curvilinear structure along lesser curvature of stomach extending to body of stomach, likely hematoma or seroma from recent dilitation. There is also previously noted esophageal cancer extending inferiorly to GE junction. Chest CT unremarkable. Seen by GI in the ED. <MATHEW Vleazquez Last Filed: 06/18/23 16:14> Review of Systems 2 Review of Systems: General: No fevers, malaise, unintentional weight loss HEENT: No blurred vision, diplopia. No sore throat, nasal congestion, rhinorrhea, sinus pain, ear pain Cardiovascular: No chest pain, palpitations, or leg edema Respiratory: No shortness of breath, wheezing, cough GI: +PO intolerance, +dysphagia. No abdominal pain, nausea, vomiting, diarrhea, constipation, melena, hematochezia : No dysuria, hematuria, increased urinary frequency, decreased urinary output MSK: No myalgia, back pain Neuro: No headaches, weakness, paresthesias Skin: No rashes or lesions <MATHEW Velazquez Last Filed: 06/18/23 16:14> [facility] Medical History: Medical History Cancer of tongue Depression Hypothyroid <MATHEW Velazquez - Last Filed: 06/18/23 16:14> Family History: Family History Paternal Uncle Substance use disorder Paternal Uncle Substance use disorder Paternal Uncle Substance use disorder Paternal Uncle Substance use disorder Sister Substance use disorder Other Mental health disorder <MATHEW Velazquez - Last Filed: 06/18/23 16:14> Surgical History: Surgical History H/O colonoscopy History of esophagogastroduodenoscopy (EGD) Hx of tonsillectomy S/P cervical spinal fusion <MATHEW Velazquez Last Filed: 06/18/23 16:14> Social History: Social History Housing: House Are you a primary emergency care tech to a significant other at home: No Do you presently have visiting nurse or other home services: No Alcohol intake: never Patient Tobacco Use Status: Former Tobacco user Tobacco use type: Cigarette Smoked in Last 30 Days: No e-Cigarette/Vaping Use: Never Used Second Hand Smoke Exposure: No Use of substances other than those prescribed or required for medical reasons: No Advance Directives: No Advance Directives Information Provided: Yes Current occupational status: employed Cognitive needs: No Hearing needs: No Vision needs: No <MATHEW Velazquez Last Filed: 06/18/23 16:14> Meds Allergies/Adverse reactions: Allergies Allergy/AdvReac Type Severity Reaction Status Date / Time cisplatin [CISPLATIN] Allergy Severe ANAPHYLAXIS Verified 06/01/23 13:03 adhesive tape [ADHESIVE TAPE] Allergy Intermediate BLISTER/LESTER Verified 06/01/23 13:03 H Sulfa (Sulfonamide Allergy Unknown Gastrointestinal Verified 06/01/23 13:03 Antibiotics) Upset oxycodone [OXYCODONE] AdvReac Intermediate GI UPSET Verified 06/01/23 13:03 <MATHEW Velazquez Last Filed: 06/18/23 16:14> Active Medications: Current Medications Acetaminophen (Acetaminophen 325 Mg Tablet) 650 mg PO Q6H PRN PRN Reason: Pain, Mild (Pain Scale 1-3) Docusate Sodium (Docusate Sodium 100 Mg Capsule) 100 mg PO DAILY PRN PRN Reason: Constipation Heparin Sodium (Porcine) (Heparin Sodium,Porcine 5,000 Unit/Ml Vial) 5,000 unit SUBCUT Q12H TATE Sodium Chloride (Ns) 1,000 mls @ 999 mls/hr IV .Q1H1M TATE Stop: 06/18/23 17:00 Piperacillin Sod/Tazobactam (Sod 3.375 gm/ Sodium Chloride) 50 mls @ 100 mls/hr IV ONCE ONE Stop: 06/18/23 15:56 Ondansetron HCl (Ondansetron Hcl 4 Mg/2 Ml Vial) 4 mg IVPUSH Q8H PRN PRN Reason: Nausea and Vomiting Pharmacy Consult (Consult Rx Perform Med Rec) 1 each MISCELLANE ONCE PRN PRN Reason: Consult order Sodium Chloride (0.9 % Sodium Chloride Flush 3 Ml Syringe) 3 [facility]USH [facility] <MATHEW Velazquez - Last Filed: 06/18/23 16:14> Home medications: Home Medications Medication Instructions Recorded Confirmed Last Taken Type levothyroxine 25 mcg tablet 50 mcg PO SUTH 06/18/23 06/18/23 06/17/23 History levothyroxine 25 mcg tablet 25 mcg PO MOTUWEFRSA 06/18/23 06/18/23 Unknown History (Levo-T) <MATHEW Velazquez - Last Filed: 06/18/23 16:14> Physical Exam Vital Signs and Narrative: Vital Signs: Last Vital Signs Temp 97.9 F 06/18/23 08:57 Pulse 62 06/18/23 14:38 Resp 16 06/18/23 14:38 BP 160/84 H 06/18/23 14:38 Pulse Ox 98 06/18/23 14:38 O2 Del Method Room Air 06/18/23 14:38 BMI result Body Mass Index 21.9 <MATHEW Vealzquez - Last Filed: 06/18/23 16:14> Constitutional - Awake and Alert, No apparent distress Eyes - PERRLA, EOMI Cardiovascular - S1S2, RRR, No edema Respiratory - Normal lung expansion, Normal respiratory effort, No respiratory distress, CTA bilaterally Gastrointestinal - mild epigastric ttp, ND; +BS; No rebound or guarding Extremities - no calf tenderness bilaterally, no swelling Skin - Warm/Dry Neurological - Alert & oriented x3 Psychological - Appropriate affect <MATHEW Velazquez - Last Filed: 06/18/23 16:14> Results Labs CBC and Chem 7: 06/18/23 09:19 06/18/23 09:19 <MATHEW Velazquez - Last Filed: 06/18/23 16:14> Labs: Laboratory Results - last 24 hr 06/18/23 06/18/23 09:19 09:19 MCV 93.7 MCH 32.1 MCHC 34.2 RDW 12.3 Plt Count 246 MPV 11.1 Immature Gran % (Auto) 0.5 H Neut % (Auto) 81.0 H Lymph % (Auto) 11.3 L Rankin % (Auto) 6.2 Eos % (Auto) 0.6 Baso % (Auto) 0.4 Lymph # (Auto) 1.5 Rankin # (Auto) 0.8 Eos # (Auto) 0.1 Baso # (Auto) 0.1 Abs Immat Gran (auto) 0.06 H Absolute Neuts (auto) 10.6 H Absolute Nucleated RBC 0.000 Nucleated RBC % (auto) 0.0 Anion Gap 19 Estim Creat Clear Calc 54.2 Estimated GFR 50 Random Glucose 115 Calcium 10.9 H D Total Bilirubin 0.7 AST 20 ALT 15 Alkaline Phosphatase 73 Total Protein 8.3 H Albumin 4.8 <MATHEW Velazquez - Last Filed: 06/18/23 16:14> Imaging Radiologist's Impressions: Impressions Chest CT 06/18/23 12:50 IMPRESSION: 1. Distended esophageal with fluid most likely secondary to a stricture or narrowing at the GE junction. 2. There is abnormal aortocaval and GE junction lymphadenopathy. 3. There is a curvilinear structure along the lesser curvature of the stomach extending to the level of body of stomach. It most likely represents hematoma or seroma from recent dilation intervention of stricture. Recently diagnosed stomach cancer on endoscopy was noted. Patient has a known esophageal cancer extending inferiorly to the GE junction. 4. Scattered colonic diverticulosis without diverticulitis. 5. Unremarkable CT chest exam. 6. Results were discussed with Sabrina CARMONA in the ED by phone at 3:00 PM Abdomen/Pelvis CT 06/18/23 13:00 IMPRESSION: 1. Distended esophageal with fluid most likely secondary to a stricture or narrowing at the GE junction. 2. There is abnormal aortocaval and GE junction lymphadenopathy. 3. There is a curvilinear structure along the lesser curvature of the stomach extending to the level of body of stomach. It most likely represents hematoma or seroma from recent dilation intervention of stricture. Recently diagnosed stomach cancer on endoscopy was noted. Patient has a known esophageal cancer extending inferiorly to the GE junction. 4. Scattered colonic diverticulosis without diverticulitis. 5. Unremarkable CT chest exam. 6. Results were discussed with Sabrina CARMONA in the ED by phone at 3:00 PM <MATHEW Velazquez - Last Filed: 06/18/23 16:14> Assessment and Plan (1) Cancer of esophagus: Status: Acute <MATHEW Velazquez - Last Filed: 06/18/23 16:14> (2) Gastric malignant neoplasm: Status: Acute <MATHEW Velazquez - Last Filed: 06/18/23 16:14> (3) Dysphagia: Status: Acute <MATHEW Velazquez - Last Filed: 06/18/23 16:14> 57 year old male with history of throat cancer, hypothyroidism, and newly diagnosed SCC stomach to be admitted for TODD wtih dysphagia and newly diagnosed invasive SCC of stomach/esophagus. #Acute kidney injury- prerenal due to poor oral intake -Creat 1.45, baseline 0.86. BUN 43 -Given 2L IVF. Give addl 2L as patient received IV contrast -Encourage PO intake -Avoid nephrotoxins -Follow renal funtion, divalents #Newly diagnosed invasive SCC stomach/esophagus -Oncology consult -Gastroenterology consult -CT abd/pelvis noting lymphadenopathy -Per GI, may need G tube placement vs esophageal stenting due to malignant esophageal stricture #Malignant esophageal stricture with dysphagia -as above -CT abd/pelvis concerning for possible leak -Per thoracic surgery, upper GI gastrograffin study -IV vanco and zosyn per GI -IV PPI -Thoracic and GI consults #Hypothyroidism -continue synthroid DVT prophylaxis- heparin Full code Pt requires inpt stay at least 2 midnights for further management of TODD due to poor PO intake due to dysphagia and newly diagnosed esophageal/gastric cancer requiring IVF resuscitation and expert consultation <MATHEW Velazquez - Last Filed: 06/18/23 16:14> 57 year old male with history of throat cancer, hypothyroidism, and newly diagnosed SCC stomach to be admitted for TODD wtih dysphagia and newly diagnosed invasive SCC of stomach/esophagus. #Acute kidney injury- prerenal due to poor oral intake -Creat 1.45, baseline 0.86. BUN 43 -Given 2L IVF. Give addl 2L as patient received IV contrast -Encourage PO intake -Avoid nephrotoxins -Follow renal funtion, divalents #Newly diagnosed invasive SCC stomach/esophagus -Oncology consult -Gastroenterology consult -CT abd/pelvis noting lymphadenopathy -Per GI, may need G tube placement vs esophageal stenting due to malignant esophageal stricture #Malignant esophageal stricture with dysphagia -as above -CT abd/pelvis concerning for possible leak -Per thoracic surgery, upper GI gastrograffin study -IV vanco and zosyn per GI -IV PPI -Thoracic and GI consults #Hypothyroidism -continue synthroid DVT prophylaxis- heparin Full code Pt requires inpt stay at least 2 midnights for further management of TODD due to poor PO intake due to dysphagia and newly diagnosed esophageal/gastric cancer requiring IVF resuscitation and expert consultation Chart reviewed/patient examined. Agree with assessment and plan as per Ms. Starks. Query esophageal perforation at level of stricture. Dr. Melendez reviewed CT scan as recommending Gastrografin study. Further plans based on the outcome of the study. Patient examined nontoxic and in no acute distress. <Aaron Puentes DO - Last Filed: 06/18/23 16:28> Time Spent With Patient Time: Total time managing care of this patient today ____ minutes. <MATHEW Velazquez - Last Filed: 06/18/23 16:14> Quality Stroke Does the patient have a stroke diagnosis?: No <MATHEW Velazquez Last Filed: 06/18/23 16:14> VTE Prior VTE?: No <MATHEW Velazquez - Last Filed: 06/18/23 16:14> VTE Risk Level:: Medical - moderate - high <MATHEW Velazquez Last Filed: 06/18/23 16:14> VTE Device Contraindication: Treatment Not Indicated <MAHTEW Velazquez - Last Filed: 06/18/23 16:14> VTE Drug Contraindication: N/A - Med Ordered <MATHEW Velazquez - Last Filed: 06/18/23 16:14>
[2023-06-18 15:45] VITALS: BP 139/74; PULSE 61; RESP 16; TEMP 36.4; O2SAT 98
--- NOTE | 2023-06-18 16:04 | MHC.EDTECH ---
THIS PCT ASSUSED CARE OF PT AT 1500 ,VITALS SIGN TAKEN ,TYPE AND SCREEN ,CMP AND PTINR DRAWN AND SENT TO LAB ,BELONGING LIST DONE .
[2023-06-18 16:25] LABS: INTERNATIONAL NORM RATIO 1.3 (0.9-1.1); Prothrombin Time 15.3 SEC (11.1-13.3)
[2023-06-18 16:27] LABS: Partial Thromboplastin Time 29.4 SEC (26.0-36.4)
[2023-06-18 16:38] LABS: Alanine Aminotransferase 11 U/L (0-40); Alkaline Phosphatase 61 U/L (39-117); Anion Gap 16 (12-20); Aspartate Amino Transferase 18 U/L (5-37); Bilirubin Total 0.6 mg/dL (0.0-1.0); Blood Urea Nitrogen 33 mg/dL (9-16); Calcium 9.4 mg/dL (8.4-10.2); Carbon Dioxide 20 mmol/L (22-29); Chloride 115 mmol/L (96-108); Creatinine Clr Calc Pharmacy 89.3; Estimated Glomerular Filt Rate > 60; Glucose Random 97 mg/dL (60-115); Potassium 3.2 mmol/L (3.3-5.1); Sodium 148 mmol/L (135-145); Total Protein 6.8 g/dL (6.5-8.0)
[2023-06-18] MEDS: Diatrizoate Meglumine, Sodium 120 ML SOLUTION PO (17:05)
[2023-06-18] MEDS: Sucralfate Oral Suspension 1 GM/10 ML ORAL.SUSP PO ×2 (17:17→22:07)
[2023-06-18] MEDS: Heparin Sodium,Porcine 5,000 UNIT/ML VIAL 5000 UNIT SUBCUT (17:18)
--- NOTE | 2023-06-18 17:32 | P.CNHO_ITS ---
Subjective - Subjective Chief complaint: Consult for: Gastric carcinoma. Patient: new to practice Consult date: 06/18/23 Requesting Physician: Rosario Starks. [facility] Medical Summary: DIAGNOSIS: GASTRIC CARCINOMA. HPI - Consult Narrative Reason for consult: Consult for: Carcinoma of the esophagus and stomach. Narrative: Ozzie Norton is a 57 year old gentleman, with history of throat cancer, hypothyroidism, and newly diagnosed SCC stomach presented to the ED for evaluation of dysphagia and po intolerance. He mentioned,his symptoms have been going on for about 3 months. He tells me he had onset of symptoms in March. It initially started with dif ficulty swallowing liquids. It has since progressed to solids. Over the last week he has not been able to eat or drink much. He lost weight from to 0 5 down to 147 lb. He has been following with GI and has had multiple dilitations of what was thought to be an esophageal stricture. Unfortunately, recent biopsy on 06/07 showed invasive SCC. On arrival, VSS. Mild leukocytosis 13.1. Creat 1.45, baseline 0.83. BUN 43, Na 148, Cl 109, Ca 10.9, lytes otherwise WNL. Barium swallow revealed: Severe stricture of the distal esophagus at the GE junction with only a small amount of oral contrast passing into the stomach. No evidence of perforation. CT chest w/ contrast and CT abd/pelvis w/ contrast revealed: Distended esophageal with fluid likely 2/2 stricture or narrowing at GE junction. There is also abnormal aortocaval and GE junction lymphadenopathy and curvilinear structure along lesser curvature of stomach extending to body of stomach, likely hematoma or seroma from recent dilitation. There is also previously noted esophageal cancer extending inferiorly to GE junction. Chest CT unremarkable. Review of Systems Review of Systems: General: No fevers, malaise, he did have unintentional w eight loss, of 40 lbs since March. He has been feeling very tired. HEENT: No blurred vision, diplopia. No sore throat, nasal congestion, rhinorrhea, sinus pain, ear pain Cardiovascular: He feels a pressure in the chest, occasional chest pain, denies palpitations, or leg edema Respiratory: No shortness of breath, wheezing, cough GI: +PO intolerance, +dysphagia. He gets epigastric pain, nausea, sometimes he has vomiting, denies diarrhea, constipation, melena, hematochezia : No dysuria, hematuria, increased urinary frequency, decreased urinary output MSK: No myalgia, back pain Neuro: No headaches, weakness, paresthesias Skin: No rashes or lesions PMFSH: Medical History; Pt was seen by GI in April for difficulty swalllowing solids and weight loss. Underwent serial EGDs with dilation subsequently and eventually were able to pass the scope through the stricture on EGD 06/07 which showed malignant appearing stricture at GEJ with involvement of the gastric cardia. He is [place] [facility] [place] well as staging scans. Presented to the ER for difficulty keeping anything down, including liquids now x 2-3 days leading to severe dehydration and weakness. Was noted to be tachycardiac on exam. Labs with significant hypernatremia and TODD. EGD 06/07/23: * Larynx: Fibrotic and atrophic appearance * Esophagus: High grade stricture was again encountered at 45 cm which could not be traversed with XP scope. The scope was then changed out for regular gastroscope and a fixed-wire balloon was passed through the biopsy channel and then incrementally inflated from 8 mm to 10 mm. We were then able to pass the XP scope through the esophageal stricture which was 2 cm long and appeared ulc erated and friable. Spy bite forceps was passed through the XP scope and multiple biopsies were taken from the stricture. * Stomach: Erythema, edema and ulceration was noted in the cardia suspicious for gastric malignancy. Spy bite forceps was passed through the XP scope and m ultiple biopsies were taken from the abnormal mucosa in the cardia. * Duodenum: Normal duodenal mucosa to the extent visualised.? Path: A.? Stomach, cardia, biopsy: -?Invasive squamous cell carcinoma, poorly differentiated. - Background squamous epithelium and cardiac type mucosa with chronic inflammatory changes. - Negative for H. pylori. B.? Esophagus, stricture, biopsy: -?Invasive squamous cell carcinoma, poorly differentiated. - Small fragment of cardiac-type mucosa with mild chronic inactive in flammation. 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 He underwent radiation and chemo at the [facility]. Under the care of Dr. Sotelo. Depression Hypothyroid Family History: He denies any known history of cancer. Paternal Uncle Substance use disorder Paternal Uncle Substance use disorder Paternal Uncle Substance use disorder Paternal Uncle Substance use disorder Sister Substance use disorder SOCIAL HISTORY: He works on [employer]. He is . Has 2 children. He smoked half a pack a day quit 10 years ago. He used to drink heavily quit 9 years ago. Review of Systems - Constitutional Reports system reviewed and no additional complaints, except as documented, Reports anorexia, Reports body ache(s), Reports fatigue, Reports lack of energy, Reports malaise, Reports weight loss, Denies fever(s) - Eyes Reports system reviewed and no additional complaints, except as documented - ENT Reports system reviewed and no additional complaints, except as documented - Cardiovascular Reports system reviewed and no additional complaints, except as documented - Respiratory Reports no additional respiratory complaints - Gastrointestinal Reports system reviewed and no additional complaints, except as documented Comments: Dysphagia. - Genitourinary Genitourinary: Reports no additional male genitourinary complaints - Musculoskeletal Reports system reviewed and no additional complaints, except as documented - Integumentary/Breasts Skin/Breast: Reports no additional skin complaints - Neurologic Reports system reviewed and no additional complaints, except as documented - Psychiatric Reports system reviewed and no additional complaints, except as documented - Endocrine Reports no additional endocrine complaints - Hematologic/Lymphatic Reports system reviewed and no additional complaints, except as documented - Allergic/Immunologic Reports system reviewed and no additional complaints, except as documented Oncology Screenings - ECOG Performance Status ECOG Performance Status: 1 [facility] Medical History: Medical History (Last Updated 06/21/23 @ 11:01 by Rosario Youngblood PA-C) Cancer of tongue Depression Hypothyroid Functional capacity: uses cane/walker Patient : No Family History: Family History (Last Reviewed 06/19/23 @ 10:41 by Steph Mojica MD) Paternal Uncle Substance use disorder Paternal Uncle Substance use disorder Paternal Uncle Substance use disorder Paternal Uncle Substance use disorder Sister Substance use disorder Other Mental health disorder Surgical History: Surgical History (Last Updated 06/21/23 @ 11:01 by Rosario Youngblood PA-C) Gastrostomy tube in place History of colonoscopy History of epididymectomy History of esophagogastroduodenoscopy (EGD) History of fusion of cervical spine History of tonsillectomy Social History: Social History (Last Reviewed 06/19/23 @ 10:41 by Steph Mojica MD) Living Situation History: Household Members: Spouse Housing: House Are you a primary senior care assistant to a significant other at home: No Do you presently have visiting nurse or other home services: No Tobacco History: Patient Tobacco Use Status: Former Tobacco user Tobacco use type: Cigarette e-Cigarette/Vaping Use: Never Used Second Hand Smoke Exposure: No Occupation Assessmet: service: No Current occupational status: employed Home Medications and Allergies Current Medications: Current Medications Acetaminophen (Acetaminophen 325 Mg Tablet) 650 mg PO Q6H PRN PRN Reason: Pain, Mild (Pain Scale 1-3) Docusate Sodium (Docusate Sodium 100 Mg Capsule) 100 mg PO DAILY PRN PRN Reason: Constipation Heparin Sodium (Porcine) (Heparin Sodium,Porcine 5,000 Unit/Ml Vial) 5,000 unit SUBCUT Q12H [facility] Last Admin: 06/18/23 17:18 Dose: 5,000 unit Piperacillin Sod/Tazobactam (Sod 3.375 gm/ Sodium Chloride) 50 mls @ 100 mls/hr IV Q6H [facility] Vancomycin HCl 1,000 mg/Vancomycin HCl 750 mg/ Sodium Chloride 535 mls @ 267.5 mls/hr IV ONCE ONE Stop: 06/18/23 18:19 Levothyroxine Sodium (Levothyroxine Sodium 25 Mcg Tablet) 25 mcg PO MoTuWeFrSa@0600 [facility] Levothyroxine Sodium (Levothyroxine Sodium 50 Mcg Tablet) 50 mcg PO SuTh@0600 [facility] Lidocaine/Diphenhydr/Alum/Mg/Simeth (Mag&Al/Sim/Diphenhyd/Lidocaine 10 Ml Oral.Susp) 10 ml PO TID PRN PRN Reason: mouth pain Ondansetron HCl (Ondansetron Hcl 4 Mg/2 Ml Vial) 4 mg IVPUSH Q8H PRN PRN Reason: Nausea and Vomiting Pantoprazole Sodium (Pantoprazole Sodium 40 Mg/10 Ml Vial) 40 mg IVPUSH BID@0630,1630 [facility] Pharmacy Consult (Consult Rx Perform Med Rec) 1 each MISCELLANE ONCE PRN PRN Reason: Consult order Pharmacy Consult (Consult Rx Vancomycin Dosing) 1 each MISCELLANE DAILY PRN PRN Reason: Consult order Sodium Chloride (0.9 % Sodium Chloride Flush 3 Ml Syringe) 3 ml IVFLUSH QSHIFT [facility] Last Admin: 06/18/23 17:10 Dose: Not Given Sucralfate (Sucralfate Oral Suspension 1 Gm/10 Ml Oral.Susp) 1 gm PO QID [facility] Last Admin: 06/18/23 17:17 Dose: 1 gm Home Medications Medication Instructions Recorded Confirmed Type levothyroxine 25 mcg tablet 50 mcg PO SUTH 06/18/23 06/18/23 History levothyroxine 25 mcg tablet 25 mcg PO MOTUWEFRSA 06/18/23 06/18/23 History (Levo-T) Allergies Allergy/AdvReac Type Severity Reaction Status Date / Time cisplatin [CISPLATIN] Allergy Severe ANAPHYLAXIS Verified 06/19/23 10:21 adhesive tape [ADHESIVE TAPE] Allergy Intermediate BLISTER/LESTER Verified 06/19/23 10:21 H Sulfa (Sulfonamide Allergy Unknown Gastrointestinal Verified 06/19/23 10:21 Antibiotics) Upset Physical Exam Vital signs: Vital Signs Temp 97.5 F 06/18/23 15:45 Pulse 61 06/18/23 15:45 Resp 16 06/18/23 15:45 BP 139/74 06/18/23 15:45 Pulse Ox 98 06/18/23 15:45 O2 Del Method Room Air 06/18/23 15:45 Intake & Output 06/17/23 06/18/23 06/18/23 18:59 06:59 18:59 Intake Total 1999 Balance 1999 Intake: Intake, IV Amount 1999 0.9 % Sodium Chloride 1,000 ml 1999 @ 999 mls/hr IV .Q1H1M ONE Rx#: [id number] Other: Weight 67.4 kg Weight 67.4 kg - Constitutional Present: moderate distress, chronically ill appearing - Routine HEENT Exam Head: Present: normal inspection ENT: Present: mucous membranes moist - Routine Neck Exam Present: supple Hem/Onc Consult Result - Labs CBC & Chem 7: 06/20/23 09:46 06/22/23 05:47 Labs: Short CBC 06/18/23 Range/Units 09:19 WBC 13.1 H (4.8-10.8) X10*3/uL Hgb 14.3 (14.0-18.0) g/dl Hct 41.8 L (42.0-52.0) % Plt Count 246 (160-400) X10*3/uL BMP 06/18/23 06/18/23 09:19 16:01 Sodium 148 H 148 H Potassium 3.5 3.2 L Chloride 109 H 115 H Carbon Dioxide 24 20 L BUN 43 H 33 H Creatinine 1.45 H 0.88 Calcium 10.9 H D 9.4 D Liver Function 06/18/23 06/18/23 Range/Units 09:19 16:01 Total Bilirubin 0.7 0.6 (0.0-1.0) mg/dL AST 20 18 (5-37) U/L ALT 15 11 (0-40) U/L Alkaline Phosphatase 73 61 (39-117) U/L Albumin 4.8 4.0 (3.5-5.0) g/dL Assessment and Plan Patient Active problem list reviewed?: Yes (1) Gastric malignant neoplasm Problem details: (Esophagus + Stomach Bx = Invasive squamous cell carcinoma, poorly differentiated - 06/07/23) Status: Acute Assessment and plan: This is a pleasant 57-year-old gentleman who has been diagnosed with esophageal carcinoma. Concern now is a gastric neoplasm as well. #Malignant esophageal stricture with dysphagia. -CT abd/pelvis revealed: 1. Distended esophageal with fluid most likely secondary to a stricture or narrowing at the GE junction. 2. There is abnormal aortocaval and GE junction lymphadenopathy. 3. There is a curvilinear structure along the lesser curvature of the stomach extending to the level of body of stomach. It most likely represents hematoma or seroma from recent dilation intervention of stricture. Recently diagnosed stomach cancer on endoscopy was noted. Patient has a known esophageal cancer extending inferiorly to the GE junction. 4. Scattered colonic diverticulosis without diverticulitis. 5. Unremarkable CT chest exam. Concerning for possible leak and lymphadenopathy. Currently he is on IV vanco and zosyn as well as IV PPI PLAN: To proceed with upper GI gastrograffin study. He will be seen by thoracic surgery. He had the consider G tube placed on 06/19. He will need outpatient staging workup, with PET scan. Will review above and make further treatment recommendations. Most likely he will be a candidate for chemo/RT. Carboplatin and Taxol based. Thank you, Cc: Sukumar. - Time Spent With Patient Time Spent with Patient (in minutes): 30
[2023-06-18 17:55] VITALS: BP 154/77; PULSE 57; RESP 16; TEMP 37.8; O2SAT 98
--- NOTE | 2023-06-18 17:55 | MHC.EDTECH ---
PATIENT 1ST AND 2ND SETS OF BLOOD CULTURE DRAWN INCLUDING BLOOD CULTURE AND SENT TO LAB ,VITALS SIGN TAKEN .
[2023-06-18] MEDS: Pantoprazole Sodium 40 MG/10 ML VIAL IVPUSH (18:04)
[2023-06-18] MEDS: Piperacillin Sodium/Tazobactam 3.375 GM in 0.9 % Sodium Chloride 50 ML IV ×2 (18:10→22:08)
[2023-06-18 18:13] LABS: Lactic Acid 1.2 mmol/L (0.5-2.0)
[2023-06-18] MEDS: vancomycin HCL 1,000 MG, vancomycin HCL 750 MG in 0.9 % Sodium Chloride 500 ML 267.5 MG IV (19:16)
--- NOTE | 2023-06-18 19:41 | PC.NURSE ---
this rn assumed care of pt @ 1900. pt medicated according to jan. report given to yo johansen pt awaiting transport to bed assignment
[2023-06-18] MEDS: 0.9 % Sodium Chloride Flush 3 ML SYRINGE IVFLUSH (22:15)
[2023-06-18 23:52] VITALS: BP 159/79; PULSE 54; RESP 15; TEMP 36.8; O2SAT 96
[2023-06-19] VITALS (14 sets, daily range): BP systolic 151–173; BP diastolic 80–92; PULSE 50–70; RESP 16–20; TEMP 36.2–36.5; O2SAT 91–99; BMI 21.9
[2023-06-19] MEDS: Pantoprazole Sodium 40 MG/10 ML VIAL IVPUSH ×2 (05:57→15:34)
[2023-06-19] MEDS: Piperacillin Sodium/Tazobactam 3.375 GM in 0.9 % Sodium Chloride 50 ML IV ×4 (05:57→22:33)
[2023-06-19] MEDS: vancomycin HCL 1,000 MG in 0.9 % Sodium Chloride 250 ML 270 MG IV (06:39)
[2023-06-19 07:19] LABS: MANUAL DIFF FLAG NO
[2023-06-19 07:27] LABS: Basophils Percent Auto 0.4 % (0-2); Eosinophils Absolute Auto 0.3 X10*3/uL (0.0-0.4); Eosinophils Percent Auto 2.9 % (0-4); Hematocrit 35.3 % (42.0-52.0); Hemoglobin 11.9 g/dl (14.0-18.0); Imm Gran Abs Auto 0.03 X10*3/uL (0.00-0.03); Imm Gran Pct Auto 0.3 % (0.0-0.4); Lymphocytes Absolute Auto 1.2 X10*3/uL (1.2-4.9); Mean Corpuscular HGB Conc 33.7 g/dl (31.0-36.0); Mean Corpuscular Hemoglobin 32.1 pg (27.0-33.0); Mean Corpuscular Volume 95.1 fL (80.0-98.0); Mean Platelet Volume 11.4 fL (9.4-12.4); Monocytes Absolute Auto 0.7 X10*3/uL (0.1-1.2); Monocytes Percent Auto 7.5 % (2-11); Neutrophils Absolute Auto 7.2 x10*3/uL (2.0-8.3); Neutrophils Percent Auto 75.9 % (45-73); Platelet Count 159 X10*3/uL (160-400); Red Blood Count 3.71 X10*6/uL (4.60-5.80); Red Cell Distribution Width 12.4 % (11.0-16.0); White Blood Count 9.5 X10*3/uL (4.8-10.8)
[2023-06-19 08:18] LABS: Anion Gap 12 (12-20); Blood Urea Nitrogen 17 mg/dL (9-16); Calcium 9.1 mg/dL (8.4-10.2); Carbon Dioxide 24 mmol/L (22-29); Chloride 112 mmol/L (96-108); Creatinine Clr Calc Pharmacy 98.2; Estimated Glomerular Filt Rate > 60; Glucose Random 91 mg/dL (60-115); Potassium 3.1 mmol/L (3.3-5.1); Sodium 145 mmol/L (135-145)
--- NOTE | 2023-06-19 08:56 | PM.CNGS ---
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 Patient has had multiple endoscopic dilations. There was a concern for perforation which was ruled out yesterday. Patient is unable to tolerate any diet at all. 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 Patient currently requires G-tube placement but, because he is complete obstruction of esophagus, this will have to be performed as an open procedure. [facility] Past Medical History Medical History Cancer of tongue Depression Hypothyroid Functional capacity: uses cane/walker Family History Family History Paternal Uncle Substance use disorder Paternal Uncle Substance use disorder Paternal Uncle Substance use disorder Paternal Uncle Substance use disorder Sister Substance use disorder Other Mental health disorder Surgical History Surgical History H/O colonoscopy History of esophagogastroduodenoscopy (EGD) Hx of tonsillectomy S/P cervical spinal fusion Social History Social History Household Members: Spouse Housing: House Are you a primary health care liaison to a significant other at home: No Do you presently have visiting nurse or other home services: No Alcohol intake: never Patient Tobacco Use Status: Former Tobacco user Tobacco use type: Cigarette e-Cigarette/Vaping Use: Never Used Second Hand Smoke Exposure: No Current occupational status: employed Cognitive needs: No Hearing needs: No Vision needs: No Meds Allergies Allergy/AdvReac Type Severity Reaction Status Date / Time cisplatin [CISPLATIN] Allergy Severe ANAPHYLAXIS Verified 06/01/23 13:03 adhesive tape [ADHESIVE TAPE] Allergy Intermediate BLISTER/LESTER Verified 06/01/23 13:03 H Sulfa (Sulfonamide Allergy Unknown Gastrointestinal Verified 06/01/23 13:03 Antibiotics) Upset oxycodone [OXYCODONE] AdvReac Intermediate GI UPSET Verified 06/01/23 13:03 Active Medications: Current Medications Acetaminophen (Acetaminophen 325 Mg Tablet) 650 mg PO Q6H PRN PRN Reason: Pain, Mild (Pain Scale 1-3) Docusate Sodium (Docusate Sodium 100 Mg Capsule) 100 mg PO DAILY PRN PRN Reason: Constipation Heparin Sodium (Porcine) (Heparin Sodium,Porcine 5,000 Unit/Ml Vial) 5,000 unit SUBCUT Q12H [facility] Last Admin: 06/19/23 05:02 Dose: Not Given Piperacillin Sod/Tazobactam (Sod 3.375 gm/ Sodium Chloride) 50 mls @ 100 mls/hr IV Q6H [facility] Last Infusion: 06/19/23 06:29 Dose: Infused Vancomycin HCl 1,000 mg/ (Sodium Chloride) 270 mls @ 270 mls/hr IV Q12H [facility] Last Infusion: 06/19/23 07:39 Dose: Infused Levothyroxine Sodium (Levothyroxine Sodium 25 Mcg Tablet) 25 mcg PO MoTuWeFrSa@0600 [facility] Last Admin: 06/19/23 06:01 Dose: Not Given Levothyroxine Sodium (Levothyroxine Sodium 50 Mcg Tablet) 50 mcg PO SuTh@0600 [facility] Lidocaine/Diphenhydr/Alum/Mg/Simeth (Mag&Al/Sim/Diphenhyd/Lidocaine 10 Ml Oral.Susp) 10 ml PO TID PRN PRN Reason: mouth pain Ondansetron HCl (Ondansetron Hcl 4 Mg/2 Ml Vial) 4 mg IVPUSH Q8H PRN PRN Reason: Nausea and Vomiting Pantoprazole Sodium (Pantoprazole Sodium 40 Mg/10 Ml Vial) 40 mg IVPUSH BID@0630,1630 [facility] Last Admin: 06/19/23 05:57 Dose: 40 mg Pharmacy Consult (Consult Rx Perform Med Rec) 1 each MISCELLANE ONCE PRN PRN Reason: Consult order Pharmacy Consult (Consult Rx Vancomycin Dosing) 1 each MISCELLANE DAILY PRN PRN Reason: Consult order Sodium Chloride (0.9 % Sodium Chloride Flush 3 Ml Syringe) 3 ml IVFLUSH QSHIFT [facility] Last Admin: 06/18/23 22:15 Dose: 3 ml Sucralfate (Sucralfate Oral Suspension 1 Gm/10 Ml Oral.Susp) 1 gm PO QID [facility] Last Admin: 06/18/23 22:07 Dose: 1 gm Home Medications Medication Instructions Recorded Confirmed Last Taken Type levothyroxine 25 mcg tablet 50 mcg PO SUTH 06/18/23 06/18/23 06/17/23 History levothyroxine 25 mcg tablet 25 mcg PO MOTUWEFRSA 06/18/23 06/18/23 Unknown History (Levo-T) Physical Exam Vital Signs: Vital Signs: Last Vital Signs Temp 97.4 F 06/19/23 07:20 Pulse 53 06/19/23 07:20 Resp 20 06/19/23 07:20 BP 151/87 H 06/19/23 07:20 Pulse Ox 98 06/19/23 07:20 O2 Del Method Room Air 06/19/23 07:20 BMI result Body Mass Index 21.9 Thin male in no acute distress. Chest: Other: Chest breath sounds bilaterally, HS 1 and 2. GI: Other: Abdomen is soft. Left upper quadrant old PEG tube site/scar. Results Labs 06/19/23 07:10 06/19/23 07:10 Labs: Abnormal lab results 06/18/23 06/18/23 06/18/23 Range/Units 09:19 09:19 16:01 WBC 13.1 H (4.8-10.8) X10*3/uL RBC 4.46 L (4.60-5.80) X10*6/uL Hgb (14.0-18.0) g/dl Hct 41.8 L (42.0-52.0) % Plt Count (160-400) X10*3/uL Immature Gran % (Auto) 0.5 H (0.0-0.4) % Neut % (Auto) 81.0 H (45-73) % Lymph % (Auto) 11.3 L (20-40) % Abs Immat Gran (auto) 0.06 H (0.00-0.03) X10*3/uL Absolute Neuts (auto) 10.6 H (2.0-8.3) x10*3/uL PT 15.3 H (11.1-13.3) SEC INR 1.3 H (0.9-1.1) Sodium 148 H (135-145) mmol/L Potassium (3.3-5.1) mmol/L Chloride 109 H (96-108) mmol/L Carbon Dioxide (22-29) mmol/L BUN 43 H (9-16) mg/dL Creatinine 1.45 H (0.5-1.4) mg/dL Calcium 10.9 H D (8.4-10.2) mg/dL Total Protein 8.3 H (6.5-8.0) g/dL 06/18/23 06/19/23 06/19/23 Range/Units 16:01 07:10 07:10 WBC (4.8-10.8) X10*3/uL RBC 3.71 L (4.60-5.80) X10*6/uL Hgb 11.9 L (14.0-18.0) g/dl Hct 35.3 L (42.0-52.0) % Plt Count 159 L D (160-400) X10*3/uL Immature Gran % (Auto) (0.0-0.4) % Neut % (Auto) 75.9 H (45-73) % Lymph % (Auto) 13.0 L (20-40) % Abs Immat Gran (auto) (0.00-0.03) X10*3/uL Absolute Neuts (auto) (2.0-8.3) x10*3/uL PT (11.1-13.3) SEC INR (0.9-1.1) Sodium 148 H (135-145) mmol/L Potassium 3.2 L 3.1 L (3.3-5.1) mmol/L Chloride 115 H 112 H (96-108) mmol/L Carbon Dioxide 20 L (22-29) mmol/L BUN 33 H 17 H (9-16) mg/dL Creatinine (0.5-1.4) mg/dL Calcium (8.4-10.2) mg/dL Total Protein (6.5-8.0) g/dL Short CBC 06/18/23 06/19/23 Range/Units 09:19 07:10 WBC 13.1 H 9.5 (4.8-10.8) X10*3/uL Hgb 14.3 11.9 L (14.0-18.0) g/dl Hct 41.8 L 35.3 L (42.0-52.0) % Plt Count 246 159 L D (160-400) X10*3/uL BMP 06/18/23 06/18/23 06/19/23 09:19 16:01 07:10 Sodium 148 H 148 H 145 Potassium 3.5 3.2 L 3.1 L Chloride 109 H 115 H 112 H Carbon Dioxide 24 20 L 24 BUN 43 H 33 H 17 H Creatinine 1.45 H 0.88 0.80 Calcium 10.9 H D 9.4 D 9.1 Liver Function 06/18/23 06/18/23 Range/Units 09:19 16:01 Total Bilirubin 0.7 0.6 (0.0-1.0) mg/dL AST 20 18 (5-37) U/L ALT 15 11 (0-40) U/L Alkaline Phosphatase 73 61 (39-117) U/L Albumin 4.8 4.0 (3.5-5.0) g/dL All other labs normal. Assessment and Plan (1) Esophageal cancer: Status: Acute (2) Dysphagia: Status: Acute (3) Acute esophageal obstruction: Status: Acute Plan Risks, benefits, alternatives of open G-tube placement were reviewed with the patient this morning and included but not limited to bleeding, infection, numbness, pain, scarring, tube dislodgement, and the patient wishes to proceed. All questions were answered. Arrangements will be made for this for this morning. Time Spent With Patient Time: Total time managing care of this patient today ____ minutes. Procedures Date of Service Date of Service: 06/19/23
--- NOTE | 2023-06-19 09:22 | MHC.HEMONC ---
I requested notes from [facility] and [facility] from pt h/o tongue cancer. He was treated at [facility].
--- NOTE | 2023-06-19 09:48 | MHC.CM.PN ---
IMM 06/19. Pt admitted with dx TODD, gastric CA, and PO intolerance. Pt lives at home with his spouse, is independent/self-care. D/C plan to return home self-care. Pts spouse to transport. HCP copy requested. PCP: Audi Simmons vax: x [phone]
[2023-06-19] MEDS: 0.9 % Sodium Chloride Flush 3 ML SYRINGE IVFLUSH ×3 (09:49→19:31)
--- NOTE | 2023-06-19 10:03 | P.CONAN_ITS ---
[facility] Active Problems Active Problems: All Active Problems (Updated 06/19/23 @ 09:53 by Rosario Youngblood PA-C) Dysphagia (Acute) Esophageal cancer (Acute) Acute esophageal obstruction (Acute) Cancer of esophagus (Acute) Gastric malignant neoplasm (Acute) Hypothyroid (Acute) Right knee pain (Acute) Spermatocele (Acute) Erectile dysfunction (Acute) Orchalgia (Acute) Neck pain (Acute) Strain of left trapezius muscle (Acute) HTN (hypertension) (Acute) Hydronephrosis (Acute) Odynophagia (Acute) Injury of foot, left (Acute) Pain of left heel (Acute) Pain of right foot (Acute) Injury of right foot (Acute) Wrist pain, left (Acute) Swelling of left wrist (Acute) Acute pain (Acute) Peyronie's disease (Acute) Food sticks on swallowing (Acute) Stricture esophagus (Acute) Dysphagia (Acute) History of radiation exposure (Acute) Past Medical History Medical History Cancer of tongue Depression Hypothyroid Family History Family History Paternal Uncle Substance use disorder Paternal Uncle Substance use disorder Paternal Uncle Substance use disorder Paternal Uncle Substance use disorder Sister Substance use disorder Other Mental health disorder Family history of problems with anesthesia: No Surgical History Surgical History History of colonoscopy History of epididymectomy History of esophagogastroduodenoscopy (EGD) History of fusion of cervical spine History of tonsillectomy History of Problems with Anesthesia: No Social History Social History Household Members: Spouse Housing: House Are you a primary urgent care nurse practitioner to a significant other at home: No Do you presently have visiting nurse or other home services: No Alcohol intake: never Patient Tobacco Use Status: Former Tobacco user Tobacco use type: Cigarette e-Cigarette/Vaping Use: Never Used Second Hand Smoke Exposure: No service: No Current occupational status: employed Cognitive needs: No Hearing needs: No Vision needs: No Meds Allergies Allergy/AdvReac Type Severity Reaction Status Date / Time cisplatin [CISPLATIN] Allergy Severe ANAPHYLAXIS Verified 06/19/23 10:21 adhesive tape [ADHESIVE TAPE] Allergy Intermediate BLISTER/LESTER Verified 06/19/23 10:21 H Sulfa (Sulfonamide Allergy Unknown Gastrointestinal Verified 06/19/23 10:21 Antibiotics) Upset oxycodone [OXYCODONE] AdvReac Intermediate GI UPSET Verified 06/19/23 10:21 Active Medications: Current Medications Acetaminophen (Acetaminophen 325 Mg Tablet) 650 mg PO Q6H PRN PRN Reason: Pain, Mild (Pain Scale 1-3) Docusate Sodium (Docusate Sodium 100 Mg Capsule) 100 mg PO DAILY PRN PRN Reason: Constipation Heparin Sodium (Porcine) (Heparin Sodium,Porcine 5,000 Unit/Ml Vial) 5,000 unit SUBCUT Q12H [facility] Last Admin: 06/19/23 05:02 Dose: Not Given Piperacillin Sod/Tazobactam (Sod 3.375 gm/ Sodium Chloride) 50 mls @ 100 mls/hr IV Q6H [facility] Last Infusion: 06/19/23 06:29 Dose: Infused Vancomycin HCl 1,000 mg/ (Sodium Chloride) 270 mls @ 270 mls/hr IV Q12H [facility] Last Infusion: 06/19/23 07:39 Dose: Infused Levothyroxine Sodium (Levothyroxine Sodium 25 Mcg Tablet) 25 mcg PO MoTuWeFrSa@0600 [facility] Last Admin: 06/19/23 06:01 Dose: Not Given Levothyroxine Sodium (Levothyroxine Sodium 50 Mcg Tablet) 50 mcg PO SuTh@0600 [facility] Lidocaine/Diphenhydr/Alum/Mg/Simeth (Mag&Al/Sim/Diphenhyd/Lidocaine 10 Ml Oral.Susp) 10 ml PO TID PRN PRN Reason: mouth pain Ondansetron HCl (Ondansetron Hcl 4 Mg/2 Ml Vial) 4 mg IVPUSH Q8H PRN PRN Reason: Nausea and Vomiting Pantoprazole Sodium (Pantoprazole Sodium 40 Mg/10 Ml Vial) 40 mg IVPUSH BID@0630,1630 [facility] Last Admin: 06/19/23 05:57 Dose: 40 mg Pharmacy Consult (Consult Rx Perform Med Rec) 1 each MISCELLANE ONCE PRN PRN Reason: Consult order Pharmacy Consult (Consult Rx Vancomycin Dosing) 1 each MISCELLANE DAILY PRN PRN Reason: Consult order Sodium Chloride (0.9 % Sodium Chloride Flush 3 Ml Syringe) 3 ml IVFLUSH QSHIFT [facility] Last Admin: 06/19/23 09:49 Dose: 3 ml Sucralfate (Sucralfate Oral Suspension 1 Gm/10 Ml Oral.Susp) 1 gm PO QID [facility] Last Admin: 06/19/23 09:48 Dose: Not Given Home Medications Medication Instructions Recorded Confirmed Last Taken Type levothyroxine 25 mcg tablet 50 mcg PO SUTH 06/18/23 06/18/23 06/17/23 History levothyroxine 25 mcg tablet 25 mcg PO MOTUWEFRSA 06/18/23 06/18/23 Unknown History (Levo-T) Exam Exam Date and Time: June 19, 2023 1003 Height,Weight and Vital Signs: Height 5 ft 9 in Weight 67.4 kg Last Vital Signs Temp 97.4 F 06/19/23 07:20 Pulse 53 06/19/23 07:20 Resp 20 06/19/23 07:20 BP 151/87 H 06/19/23 07:20 Pulse Ox 98 06/19/23 07:20 O2 Del Method Room Air 06/19/23 07:20 Pertinent Lab Results Pertinent Lab Results: Laboratory Tests 06/18/23 06/18/23 06/18/23 09:19 09:19 16:01 WBC 13.1 H RBC 4.46 L Hgb 14.3 Hct 41.8 L MCV 93.7 MCH 32.1 MCHC 34.2 RDW 12.3 Plt Count 246 MPV 11.1 Immature Gran % (Auto) 0.5 H Neut % (Auto) 81.0 H Lymph % (Auto) 11.3 L [place] % (Auto) 6.2 Eos % (Auto) 0.6 Baso % (Auto) 0.4 Lymph # (Auto) 1.5 [place] # (Auto) 0.8 Eos # (Auto) 0.1 Baso # (Auto) 0.1 Abs Immat Gran (auto) 0.06 H Absolute Neuts (auto) 10.6 H Absolute Nucleated RBC 0.000 Nucleated RBC % (auto) 0.0 PT 15.3 H INR 1.3 H APTT 29.4 Sodium 148 H Potassium 3.5 Chloride 109 H Carbon Dioxide 24 Anion Gap 19 BUN 43 H Creatinine 1.45 H Estim Creat Clear Calc 54.2 Estimated GFR 50 Random Glucose 115 Lactic Acid Calcium 10.9 H D Total Bilirubin 0.7 AST 20 ALT 15 Alkaline Phosphatase 73 Total Protein 8.3 H Albumin 4.8 Blood Type Antibody Screen 06/18/23 06/18/23 06/18/23 16:01 16:01 17:49 WBC RBC Hgb Hct MCV MCH MCHC RDW Plt Count MPV Immature Gran % (Auto) Neut % (Auto) Lymph % (Auto) [place] % (Auto) Eos % (Auto) Baso % (Auto) Lymph # (Auto) [place] # (Auto) Eos # (Auto) Baso # (Auto) Abs Immat Gran (auto) Absolute Neuts (auto) Absolute Nucleated RBC Nucleated RBC % (auto) PT INR APTT Sodium 148 H Potassium 3.2 L Chloride 115 H Carbon Dioxide 20 L Anion Gap 16 BUN 33 H Creatinine 0.88 Estim Creat Clear Calc 89.3 Estimated GFR > 60 Random Glucose 97 Lactic Acid 1.2 Calcium 9.4 D Total Bilirubin 0.6 AST 18 ALT 11 Alkaline Phosphatase 61 Total Protein 6.8 Albumin 4.0 Blood Type O Positive Antibody Screen NEGATIVE 06/19/23 06/19/23 07:10 07:10 WBC 9.5 RBC 3.71 L Hgb 11.9 L Hct 35.3 L MCV 95.1 MCH 32.1 MCHC 33.7 RDW 12.4 Plt Count 159 L D MPV 11.4 Immature Gran % (Auto) 0.3 Neut % (Auto) 75.9 H Lymph % (Auto) 13.0 L [place] % (Auto) 7.5 Eos % (Auto) 2.9 Baso % (Auto) 0.4 Lymph # (Auto) 1.2 [place] # (Auto) 0.7 Eos # (Auto) 0.3 Baso # (Auto) 0.0 Abs Immat Gran (auto) 0.03 Absolute Neuts (auto) 7.2 Absolute Nucleated RBC 0.000 Nucleated RBC % (auto) 0.0 PT INR APTT Sodium 145 Potassium 3.1 L Chloride 112 H Carbon Dioxide 24 Anion Gap 12 BUN 17 H Creatinine 0.80 Estim Creat Clear Calc 98.2 Estimated GFR > 60 Random Glucose 91 Lactic Acid Calcium 9.1 Total Bilirubin AST ALT Alkaline Phosphatase Total Protein Albumin Blood Type Antibody Screen Airway Mallampati Class: III TM Dist: >3cm Loose/Missing/Broken Teeth: No Heart: RRR Lungs: CTA Assessment and Plan Assessment Anesthesia Assessment: Anesthesia Plan Discussed and Chart Reviewed Final Anesthetic Review Family History of Problems with Anesthesia: No History of Problems with Anesthesia: No NPO: Yes ASA Class: IV Final Preanesthetic Review: Meds/Allgs Chart Reviewed, Consent Obtained/Reviewed and Anes Risks/Benef Reviewed Patient Risk: High Procedure Risk: Low Anesthetic Plan Anesthetic Plan: GA Disposition: Standard PACU
--- NOTE | 2023-06-19 10:32 | P.PNIM_ITS ---
Subjective Subjective Date of Service: 06/19/23 Interval History: f/u on po intolerance in setting of esophageal cancer Physical Exam Vital Signs: Vital Signs: Last Vital Signs Temp 97.7 F 06/19/23 10:14 Pulse 60 06/19/23 10:14 Resp 18 06/19/23 10:14 BP 161/85 H 06/19/23 10:14 Pulse Ox 99 06/19/23 10:14 O2 Del Method Room Air 06/19/23 10:14 BMI result Body Mass Index 21.9 Const: Other: General: AO X 3, no acute distress Resp: CTA bilateral CVS: S1,S2,RRR GI: +BS, NT, no distention Skin: No rash Neuro: motor grossly intact Psych: appropriate affect Objective Data Active Medications Acetaminophen (Acetaminophen 325 Mg Tablet) 650 mg PO Q6H PRN PRN Reason: Pain, Mild (Pain Scale 1-3) Docusate Sodium (Docusate Sodium 100 Mg Capsule) 100 mg PO DAILY PRN PRN Reason: Constipation Heparin Sodium (Porcine) (Heparin Sodium,Porcine 5,000 Unit/Ml Vial) 5,000 unit SUBCUT Q12H [facility] Last Admin: 06/19/23 05:02 Dose: Not Given Documented By: MILADYS Non-Admin Reason: surgery scheduled Piperacillin Sod/Tazobactam (Sod 3.375 gm/ Sodium Chloride) 50 mls @ 100 mls/hr IV Q6H [facility] Last Infusion: 06/19/23 06:29 Dose: 0 mls/hr Documented By: MILADYS Vancomycin HCl 1,000 mg/ (Sodium Chloride) 270 mls @ 270 mls/hr IV Q12H [facility] Last Infusion: 06/19/23 07:39 Dose: 0 mls/hr Documented By: JONAS Levothyroxine Sodium (Levothyroxine Sodium 25 Mcg Tablet) 25 mcg PO MoTuWeFrSa@0600 [facility] Last Admin: 06/19/23 06:01 Dose: Not Given Documented By: MILADYS Non-Admin Reason: NPO Levothyroxine Sodium (Levothyroxine Sodium 50 Mcg Tablet) 50 mcg PO SuTh@0600 [facility] Lidocaine/Diphenhydr/Alum/Mg/Simeth (Mag&Al/Sim/Diphenhyd/Lidocaine 10 Ml Oral.Susp) 10 ml PO TID PRN PRN Reason: mouth pain Ondansetron HCl (Ondansetron Hcl 4 Mg/2 Ml Vial) 4 mg IVPUSH Q8H PRN PRN Reason: Nausea and Vomiting Pantoprazole Sodium (Pantoprazole Sodium 40 Mg/10 Ml Vial) 40 mg IVPUSH BID@0630,1630 [facility] Last Admin: 06/19/23 05:57 Dose: 40 mg Documented By: MILADYS Pharmacy Consult (Consult Rx Perform Med Rec) 1 each MISCELLANE ONCE PRN PRN Reason: Consult order Pharmacy Consult (Consult Rx Vancomycin Dosing) 1 each MISCELLANE DAILY PRN PRN Reason: Consult order Sodium Chloride (0.9 % Sodium Chloride Flush 3 Ml Syringe) 3 ml IVFLUSH QSHIFT [facility] Last Admin: 06/19/23 09:49 Dose: 3 ml Documented By: JONAS Sucralfate (Sucralfate Oral Suspension 1 Gm/10 Ml Oral.Susp) 1 gm PO QID [facility] Last Admin: 06/19/23 09:48 Dose: Not Given Documented By: JONAS Non-Admin Reason: NPO Labs 06/19/23 07:10 06/19/23 07:10 Labs: Laboratory Results - last 24 hr 06/18/23 06/18/23 06/18/23 16:01 16:01 16:01 MCV MCH MCHC RDW Plt Count MPV Immature Gran % (Auto) Neut % (Auto) Lymph % (Auto) [place] % (Auto) Eos % (Auto) Baso % (Auto) Lymph # (Auto) [place] # (Auto) Eos # (Auto) Baso # (Auto) Abs Immat Gran (auto) Absolute Neuts (auto) Absolute Nucleated RBC Nucleated RBC % (auto) PT 15.3 H INR 1.3 H APTT 29.4 Anion Gap 16 Estim Creat Clear Calc 89.3 Estimated GFR > 60 Random Glucose 97 Lactic Acid Calcium 9.4 D Total Bilirubin 0.6 AST 18 ALT 11 Alkaline Phosphatase 61 Total Protein 6.8 Albumin 4.0 Blood Type O Positive Antibody Screen NEGATIVE 06/18/23 06/19/23 06/19/23 17:49 07:10 07:10 MCV 95.1 MCH 32.1 MCHC 33.7 RDW 12.4 Plt Count 159 L D MPV 11.4 Immature Gran % (Auto) 0.3 Neut % (Auto) 75.9 H Lymph % (Auto) 13.0 L [place] % (Auto) 7.5 Eos % (Auto) 2.9 Baso % (Auto) 0.4 Lymph # (Auto) 1.2 [place] # (Auto) 0.7 Eos # (Auto) 0.3 Baso # (Auto) 0.0 Abs Immat Gran (auto) 0.03 Absolute Neuts (auto) 7.2 Absolute Nucleated RBC 0.000 Nucleated RBC % (auto) 0.0 PT INR APTT Anion Gap 12 Estim Creat Clear Calc 98.2 Estimated GFR > 60 Random Glucose 91 Lactic Acid 1.2 Calcium 9.1 Total Bilirubin AST ALT Alkaline Phosphatase Total Protein Albumin Blood Type Antibody Screen Assessment and Plan (1) Dysphagia: Status: Acute (2) Esophageal cancer: Status: Acute Plan 57 year old male with history of throat cancer, hypothyroidism, and newly diagnosed SCC stomach to be admitted for TODD wtih dysphagia and newly diagnosed invasive SCC of stomach/esophagus. #Acute kidney injury- prerenal due to poor oral intake, resolved with IVF #Newly diagnosed invasive SCC stomach/esophagus -Barium Study:Severe stricture of the distal esophagus at the GE junction with only a small amount of oral contrast passing into the stomach. No evidence of perforation. ?-For open Gtube today -Oncology and Gi following, for staging work up on outpatient basis #Malignant esophageal stricture with dysphagia -as above -CT abd/pelvis concerning for possible leak -Per thoracic surgery, upper GI gastrograffin study -IV vanco and zosyn per GI -IV PPI -Thoracic and GI consults #hypOkalemia #Hypothyroidism -continue synthroid moderate proteint calory malnutrition: Tube feed once feeding tube in DVT prophylaxis- heparin Full code Need for inpatient: for management of TODD due to poor PO intake due to dysphagia and newly diagnosed esophageal/gastric cancer requiring IVF resuscitation and expert consultation Time Spent With Patient Time: Total time managing care of this patient today ____ minutes. Quality Stroke Does the patient have a stroke diagnosis?: No VTE Prior VTE?: No VTE Risk Level:: Medical - moderate - high VTE Device Contraindication: Treatment Not Indicated VTE Drug Contraindication: N/A - Med Ordered
--- NOTE | 2023-06-19 10:59 | PC.NURSE ---
report given to nvoa yost rn at this time.
--- NOTE | 2023-06-19 12:24 | W.PM.OPN ---
Operative Note Operative Note Date of Service: 06/19/23 Narrative: Preoperative diagnosis: [] Esophageal obstructing cancer Postop diagnosis: [] Same Procedure [] open G-tube placement Surgeon: [] Al Refrigeration Insulator: [] Type of Anesthesia: [] General Indication for surgery: [] Distal completely obstructing esophageal cancer Findings: [] Patient brought to the operating room, placed on operative table in supine position, after adequate level of general anesthesia was induced, the patient's abdomen was prepped and draped in usual sterile fashion. Using a small upper midline incision, this carried down through skin, subcutaneous tissue, and linea alba. Posterior fascia and peritoneum were opened and extended along the length of the incision. Stomach was identified and brought onto the field. Two pursestring sutures of 2-0 silk were placed on the anterior gastric wall. Next to a separate left upper quadrant stab wound incision, 24 Yoruba fully feeding tube was entered into abdominal cavity. Gastrotomy was opened in the center of the pursestring sutures using Bovie and the G-tube advanced into the distal stomach. Approximately 3 cc of air was inflated into the balloon. Inner and then outer pursestring sutures were secured. Stomach was then pexyed to the anterior abdominal wall peritoneum using interrupted seromuscular to peritoneum 2-0 sutures. Wound was irrigated and secured hemostasis. It was closed in the following manner; mass closed using 1. Maxon suture was used to close fascia. Interrupted inverted deep dermal 3-0 Vicryl sutures followed by running subcuticular 4-0 Vicryl sutures were placed. Steri-Strips and sterile dressings were applied. Wound was infiltrated 0.5% Marcaine at completion. G-tube was flushed with saline and easily flushed and gastric contents retrieved. Sponge, needle, and instrument counts were reported correct. Patient tolerated the procedure well and emerged anesthesia stable condition. EBL minimal
[2023-06-19] MEDS: HYDROmorphone HCl 0.5 MG/0.5 ML SYRINGE 0.25 MG IVPUSH ×2 (13:13→13:21)
--- NOTE | 2023-06-19 13:38 | MHC.CLN ---
PT IS SEVERELY MALNOURISHED PT WITH 31% SIGNIFICANT WT LOSS X 6 MONTHS WITH CHRONIC POOR PO INTAKE UNABLE TO PERFORM NFPE UPON INTERVIEW PT DOWN IN O.R. FOR PEG PLACEMENT SPOKE WITH PT'S WHO REPORTS PT'S UBW 205# X 3 MONTHS AGO PT WITH CHRONIC POOR PO INTAKE X 3 MONTHS R/T ESOPHAGEAL CA PT IS CURRENTLY NPO AND PEG BEING PLACED TODAY WHEN TF TO START; RECOMMEND VITAL 1.5 AT MAX GOAL RATE 60ML/HR WITH 240ML FREE WATER FLUSHES Q 6 HRS TO PROVIDE 2160KCALS (30KCALS/KG), 97.2G PROTEIN (1.4G/KG), 2060ML TOTAL WATER FROM FORMULA AND FLUSHES (30.6ML/KG) START FORMULA AT 20ML/HR AND INCREASE BY 10ML Q 4 HRS UNTIL MAX GOAL IS ACHIEVED PT IS AT RISK FOR RE-FEEDING R/T POOR PO INTAKE X 3 MONTHS-WATCH K+, MG, AND PHOS MONITOR FOR TOLERANCE, RESIDUALS AND LYTES SPOKE WITH PT'S ABOUT CHANGING TF TO NOCTURNAL OR BOLUS FEEDS UPON DISCHARGE. CAN CHANGE FORMULA AT TIME OF DISCHARGE SEE ALSO FULL CLINICAL NUTRITION ASSESSMENT
[2023-06-19] MEDS: Sucralfate Oral Suspension 1 GM/10 ML ORAL.SUSP PO ×3 (14:54→22:33)
[2023-06-19] MEDS: Morphine Sulfate 4 MG/ML CARTRIDGE 3 MG IVPUSH ×2 (15:41→19:22)
[2023-06-19 17:34] LABS: Vancomycin Random 7.6 mcg/mL (15-20)
--- NOTE | 2023-06-19 17:57 | HE.PHANOTE ---
VANCO DOSE ADJUSTMENT BASED ON SCR OF 0.80 AND TROUGH OF 7.6 DOSE INCREASED TO 1250 Q 12H. NEXT TROUGH AT 06/20 @ 1700
[2023-06-19] MEDS: vancomycin HCL 1,250 MG in 0.9 % Sodium Chloride 250 ML 166.67 MG IV (19:24)
--- NOTE | 2023-06-19 23:33 | MHC.PIE ---
p; pt c/o difficulty urinating and full feeling to bladder. i; bladder scanned shows over 1000ml i; dr leone notified; new order straight cath now e; [facility]
[2023-06-20 03:39] VITALS: BP 176/90; PULSE 69; RESP 18; TEMP 36; O2SAT 94
[2023-06-20] MEDS: Piperacillin Sodium/Tazobactam 3.375 GM in 0.9 % Sodium Chloride 50 ML IV ×4 (03:50→22:31)
[2023-06-20] MEDS: Morphine Sulfate 4 MG/ML CARTRIDGE 3 MG IVPUSH ×5 (03:50→22:31)
[2023-06-20] MEDS: Pantoprazole Sodium 40 MG/10 ML VIAL IVPUSH ×2 (05:54→17:04)
[2023-06-20] MEDS: Levothyroxine Sodium 25 MCG TABLET PO (05:54)
[2023-06-20] MEDS: vancomycin HCL 1,250 MG in 0.9 % Sodium Chloride 250 ML 166.67 MG IV ×2 (06:14→20:32)
[2023-06-20 06:39] LABS: Creatinine Clr Calc Pharmacy 85.4; Estimated Glomerular Filt Rate > 60
[2023-06-20 07:49] VITALS: BP 162/90; PULSE 81; RESP 18; TEMP 36.1; O2SAT 92
[2023-06-20] MEDS: 0.9 % Sodium Chloride Flush 3 ML SYRINGE IVFLUSH ×3 (08:12→20:33)
--- NOTE | 2023-06-20 08:21 | P.PNGS_ITS ---
Subjective Subjective Date of Service: 06/20/23 Interval history: C/o pain at incision site but relieved with analgesics. Physical Exam Vital Signs: Vital Signs: Last Vital Signs Temp 97.0 F 06/20/23 07:49 Pulse 81 06/20/23 07:49 Resp 18 06/20/23 07:49 BP 162/90 H 06/20/23 07:49 Pulse Ox 92 06/20/23 07:49 O2 Del Method Room Air 06/20/23 07:49 O2 Flow Rate 6 06/19/23 13:45 BMI result Body Mass Index 21.9 Const: General: comfortable, no acute distress and alert Orientation/con sciousness: patient oriented x3 Resp: Effort & Inspection: normal respiratory effort GI: Other: G tube in place Inspection: No distended and Yes incision (dressing c/d/i) Palpation (GI): Soft to palpation, Tenderness to palpation present (GI) (mild incisional), no guarding and not rigid Percussion: Yes normal to percussion Skin: General skin exam: no rashes or lesions noted Neuro: General: patient oriented x3 and moves all extremities Objective Data Active Medications Acetaminophen (Acetaminophen 325 Mg Tablet) 650 mg PO Q6H PRN PRN Reason: Pain, Mild (Pain Scale 1-3) Docusate Sodium (Docusate Sodium 100 Mg Capsule) 100 mg PO DAILY PRN PRN Reason: Constipation Hydromorphone HCl (Hydromorphone Hcl 0.5 Mg/0.5 Ml Syringe) 0.25 mg IVPUSH Q5M PRN; Protocol PRN Reason: Pain, Severe (Pain Scale 7-10) Last Admin: 06/19/23 13:21 Dose: 0.25 mg Documented By: JUANA Piperacillin Sod/Tazobactam (Sod 3.375 gm/ Sodium Chloride) 50 mls @ 100 mls/hr IV Q6H [facility] Last Infusion: 06/20/23 04:43 Dose: 0 mls/hr Documented By: JOVITA Vancomycin HCl 1,250 mg/ (Sodium Chloride) 250 mls @ 166.667 mls/hr IV Q12H [facility] Last Admin: 06/20/23 06:14 Dose: 166.67 mls/hr Documented By: JOVITA Levothyroxine Sodium (Levothyroxine Sodium 25 Mcg Tablet) 25 mcg PO MoTuWeFrSa@0600 [facility] Last Admin: 06/20/23 05:54 Dose: 25 mcg Documented By: JOVITA Levothyroxine Sodium (Levothyroxine Sodium 50 Mcg Tablet) 50 mcg PO SuTh@0600 [facility] Lidocaine/Diphenhydr/Alum/Mg/Simeth (Mag&Al/Sim/Diphenhyd/Lidocaine 10 Ml Oral.Susp) 10 ml PO TID PRN PRN Reason: mouth pain Morphine Sulfate (Morphine Sulfate 4 Mg/Ml Cartridge) 3 mg IVPUSH Q4H PRN; Protocol PRN Reason: Pain, Severe (Pain Scale 7-10) Last Admin: 06/20/23 08:10 Dose: 3 mg Documented By: MARYANN Ondansetron HCl (Ondansetron Hcl 4 Mg/2 Ml Vial) 4 mg IVPUSH Q8H PRN PRN Reason: Nausea and Vomiting Oxycodone HCl (Oxycodone Hcl Immed Release 5 Mg Tablet) 5 mg PO Q4H PRN PRN Reason: Pain, Moderate(Pain Scale 4-6) Pantoprazole Sodium (Pantoprazole Sodium 40 Mg/10 Ml Vial) 40 mg IVPUSH BID@0630,1630 [facility] Last Admin: 06/20/23 05:54 Dose: 40 mg Documented By: JOVITA Pharmacy Consult (Consult Rx Perform Med Rec) 1 each MISCELLANE ONCE PRN PRN Reason: Consult order Pharmacy Consult (Consult Rx Vancomycin Dosing) 1 each MISCELLANE DAILY PRN PRN Reason: Consult order Sodium Chloride (0.9 % Sodium Chloride Flush 3 Ml Syringe) 3 ml IVFLUSH QSHIFT [facility] Last Admin: 06/20/23 08:12 Dose: 3 ml Documented By: MARYANN Sucralfate (Sucralfate Oral Suspension 1 Gm/10 Ml Oral.Susp) 1 gm PO QID [facility] Last Admin: 06/20/23 08:02 Dose: Not Given Documented By: MARYANN Non-Admin Reason: NPO Labs 06/19/23 07:10 06/20/23 05:51 Labs: Laboratory Results - last 24 hr 06/19/23 06/20/23 16:54 05:51 Estim Creat Clear Calc 85.4 Estimated GFR > 60 Random Vancomycin 7.6 L Microbiology Microbiology Results: Microbiology 06/18/23 17:49 Blood Culture - Preliminary Blood - Venous No growth after 24 hours. 06/18/23 17:46 Blood Culture - Preliminary Blood - Venous No growth after 24 hours. Procedures Date of Service Date of Service: 06/20/23 Progress Note: A&P Assessment and plan (1) Dysphagia: Status: Acute (2) Esophageal cancer: Status: Acute (3) S/P gastrostomy tube (G tube) placement, follow-up exam: Status: Acute Plan 57 year old male with obstructing esophageal cancer now POD #1 s/p open gastrostomy tube placement. Doing well post op, G tube remains in place, abdomen soft with appropriate post op tenderness. Can begin to use G tube today. Time Spent With Patient Time: Total time managing care of this patient today ____ minutes. Quality Stroke Does the patient have a stroke diagnosis?: No VTE Prior VTE?: No VTE Risk Level:: Medical - moderate - high VTE Device Contraindication: Treatment Not Indicated VTE Drug Contraindication: N/A - Med Ordered
--- NOTE | 2023-06-20 09:23 | PM.GIPN ---
Subjective Subjective Date of Service: 06/20/23 Interval History: s/p surg G tube placement 06/19 (Dr Melendez) Today reports localised pain around the G tube but tolerable. Has been able to walk around. Waiting for tube feeds initiation Critical Care Time (minutes): 0 Physical Exam Vital Signs: Vital Signs: Last Vital Signs Temp 97.0 F 06/20/23 07:49 Pulse 81 06/20/23 07:49 Resp 18 06/20/23 07:49 BP 162/90 H 06/20/23 07:49 Pulse Ox 92 06/20/23 07:49 O2 Del Method Room Air 06/20/23 07:49 O2 Flow Rate 6 06/19/23 13:45 BMI result Body Mass Index 21.9 Gen appear: Frail, undernourished, NAD Abd: soft, G tube in place, incision site clean and dry Objective Data Labs 06/19/23 07:10 06/20/23 05:51 Labs: Laboratory Results - last 24 hr 06/19/23 06/20/23 16:54 05:51 Creatinine 0.92 Estim Creat Clear Calc 85.4 Estimated GFR > 60 Random Vancomycin 7.6 L Microbiology Microbiology Results: Microbiology 06/18/23 17:49 Blood - Venous Blood Culture - Preliminary No growth after 24 hours. 06/18/23 17:46 Blood - Venous Blood Culture - Preliminary No growth after 24 hours. Procedures Date of Service Date of Service: 06/20/23 Progress Note: A&P Assessment and plan (1) S/P gastrostomy tube (G tube) placement, follow-up exam: Status: Acute (2) Dysphagia: Status: Acute (3) Esophageal cancer: Status: Acute Plan s/p G tube placement and starting on tube feeds this afternoon. Matted lymphadenopathy in aortocaval region noted on CT abd. Plan for PET scan through Onc - office appt booked for 06/26. Outpatient GI follow up will also be set up Time Spent With Patient Time: Total time managing care of this patient today ____ minutes. Quality Stroke Does the patient have a stroke diagnosis?: No VTE Prior VTE?: No VTE Risk Level:: Medical - moderate - high VTE Device Contraindication: Treatment Not Indicated VTE Drug Contraindication: N/A - Med Ordered
[2023-06-20 10:02] LABS: Hematocrit 37.4 % (42.0-52.0); Hemoglobin 13.1 g/dl (14.0-18.0); Mean Corpuscular Hemoglobin 31.7 pg (27.0-33.0); Mean Corpuscular Volume 90.6 fL (80.0-98.0); Mean Platelet Volume 11.3 fL (9.4-12.4); Platelet Count 182 X10*3/uL (160-400); Red Blood Count 4.13 X10*6/uL (4.60-5.80); Red Cell Distribution Width 11.9 % (11.0-16.0); White Blood Count 12.4 X10*3/uL (4.8-10.8)
[2023-06-20 10:06] LABS: Anion Gap 15 (12-20); Blood Urea Nitrogen 12 mg/dL (9-16); Calcium 9.4 mg/dL (8.4-10.2); Carbon Dioxide 25 mmol/L (22-29); Chloride 105 mmol/L (96-108); Creatinine Clr Calc Pharmacy 93.6; Estimated Glomerular Filt Rate > 60; Glucose Random 99 mg/dL (60-115); Potassium 2.8 mmol/L (3.3-5.1); Sodium 142 mmol/L (135-145)
--- NOTE | 2023-06-20 10:21 | HO.PM.IMPN ---
Subjective Subjective Date of Service: 06/21/23 Interval History: s/p surg G tube placement 06/19 (Dr Melendez) Today reports localised pain around the G tube, tolerating tube feed Physical Exam Vital Signs: Vital Signs: Last Vital Signs Temp 97.0 F 06/20/23 07:49 Pulse 81 06/20/23 07:49 Resp 18 06/20/23 07:49 BP 162/90 H 06/20/23 07:49 Pulse Ox 92 06/20/23 07:49 O2 Del Method Room Air 06/20/23 07:49 O2 Flow Rate 6 06/19/23 13:45 BMI result Body Mass Index 21.9 Const: Other: General: AO X 3, no acute distress Resp: CTA bilateral CVS: S1,S2,RRR GI: +BS, NT, no distention Skin: No rash Neuro: motor grossly intact Psych: appropriate affect Objective Data Active Medications Acetaminophen (Acetaminophen 325 Mg Tablet) 650 mg PO Q6H PRN PRN Reason: Pain, Mild (Pain Scale 1-3) Docusate Sodium (Docusate Sodium 100 Mg Capsule) 100 mg PO DAILY PRN PRN Reason: Constipation Hydromorphone HCl (Hydromorphone Hcl 0.5 Mg/0.5 Ml Syringe) 0.25 mg IVPUSH Q5M PRN; Protocol PRN Reason: Pain, Severe (Pain Scale 7-10) Last Admin: 06/19/23 13:21 Dose: 0.25 mg Documented By: JUANA Piperacillin Sod/Tazobactam (Sod 3.375 gm/ Sodium Chloride) 50 mls @ 100 mls/hr IV Q6H [facility] Last Infusion: 06/20/23 04:43 Dose: 0 mls/hr Documented By: JOVITA Vancomycin HCl 1,250 mg/ (Sodium Chloride) 250 mls @ 166.667 mls/hr IV Q12H [facility] Last Infusion: 06/20/23 10:11 Dose: 0 mls/hr Documented By: MARYANN Levothyroxine Sodium (Levothyroxine Sodium 25 Mcg Tablet) 25 mcg PO MoTuWeFrSa@0600 [facility] Last Admin: 06/20/23 05:54 Dose: 25 mcg Documented By: JOVITA Levothyroxine Sodium (Levothyroxine Sodium 50 Mcg Tablet) 50 mcg PO SuTh@0600 [facility] Lidocaine/Diphenhydr/Alum/Mg/Simeth (Mag&Al/Sim/Diphenhyd/Lidocaine 10 Ml Oral.Susp) 10 ml PO TID PRN PRN Reason: mouth pain Morphine Sulfate (Morphine Sulfate 4 Mg/Ml Cartridge) 3 mg IVPUSH Q4H PRN; Protocol PRN Reason: Pain, Severe (Pain Scale 7-10) Last Admin: 06/20/23 08:10 Dose: 3 mg Documented By: MARYANN Ondansetron HCl (Ondansetron Hcl 4 Mg/2 Ml Vial) 4 mg IVPUSH Q8H PRN PRN Reason: Nausea and Vomiting Oxycodone HCl (Oxycodone Hcl Immed Release 5 Mg Tablet) 5 mg PO Q4H PRN PRN Reason: Pain, Moderate(Pain Scale 4-6) Pantoprazole Sodium (Pantoprazole Sodium 40 Mg/10 Ml Vial) 40 mg IVPUSH BID@0630,1630 [facility] Last Admin: 06/20/23 05:54 Dose: 40 mg Documented By: JOVITA Pharmacy Consult (Consult Rx Perform Med Rec) 1 each MISCELLANE ONCE PRN PRN Reason: Consult order Pharmacy Consult (Consult Rx Vancomycin Dosing) 1 each MISCELLANE DAILY PRN PRN Reason: Consult order Sodium Chloride (0.9 % Sodium Chloride Flush 3 Ml Syringe) 3 ml IVFLUSH QSHIFT [facility] Last Admin: 06/20/23 08:12 Dose: 3 ml Documented By: MARYANN Sucralfate (Sucralfate Oral Suspension 1 Gm/10 Ml Oral.Susp) 1 gm PO QID [facility] Last Admin: 06/20/23 08:02 Dose: Not Given Documented By: MARYANN Non-Admin Reason: NPO Labs 06/20/23 09:46 06/20/23 09:46 Labs: Laboratory Results - last 24 hr 06/19/23 06/20/23 06/20/23 16:54 05:51 09:46 MCV 90.6 MCH 31.7 MCHC 35.0 RDW 11.9 Plt Count 182 MPV 11.3 Absolute Nucleated RBC 0.000 Nucleated RBC % (auto) 0.0 Anion Gap Estim Creat Clear Calc 85.4 Estimated GFR > 60 Random Glucose Calcium Random Vancomycin 7.6 L 06/20/23 09:46 MCV MCH MCHC RDW Plt Count MPV Absolute Nucleated RBC Nucleated RBC % (auto) Anion Gap 15 Estim Creat Clear Calc 93.6 Estimated GFR > 60 Random Glucose 99 Calcium 9.4 Random Vancomycin Microbiology Microbiology Results: Microbiology 06/18/23 17:49 Blood Culture - Preliminary Blood - Venous No growth after 24 hours. 06/18/23 17:46 Blood Culture - Preliminary Blood - Venous No growth after 24 hours. Assessment and Plan (1) Dysphagia: Status: Acute (2) Esophageal cancer: Status: Acute Plan 57 year old male with history of throat cancer, hypothyroidism, and newly diagnosed SCC stomach to be admitted for TODD wtih dysphagia and newly diagnosed invasive SCC of stomach/esophagus. #Acute kidney injury- prerenal due to poor oral intake, resolved with IVF #Newly diagnosed invasive SCC stomach/esophagus -Barium Study:Severe stricture of the distal esophagus at the GE junction with only a small amount of oral contrast passing into the stomach. No evidence of perforation. -s/p Gtube on 06/19, tolerating tube feed, nutrition to make recommendation for home -Oncology and Gi following, for staging work up on outpatient basis #Malignant esophageal stricture with dysphagia -PET scan on outpatient basis #hypOkalemia--still low, K through Gtube #Hypothyroidism -continue synthroid moderate proteint calory malnutrition: Tube feed DVT prophylaxis- heparin Full code Need for inpatient: for management of TODD due to poor PO intake due to dysphagia and newly diagnosed esophageal/gastric cancer requiring IVF resuscitation and expert consultation Time Spent With Patient Time: Total time managing care of this patient today ____ minutes. Quality Stroke Does the patient have a stroke diagnosis?: No VTE Prior VTE?: No VTE Risk Level:: Medical - moderate - high VTE Device Contraindication: Treatment Not Indicated VTE Drug Contraindication: N/A - Med Ordered
--- NOTE | 2023-06-20 10:36 | MHC.CLN ---
F/U PEG PLACED 06/19. RECOMMEND CONTINUOUS TUBE FEEDING OF VITAL 1.5 AT MAX GOAL RATE 60ML/HR WITH 240ML FREE WATER FLUSHES Q 6 HRS. PROVIDES 2160KCALS (30KCALS/KG), 97.2G PROTEIN (1.4G/KG), 2060ML TOTAL WATER FROM FORMULA AND FLUSHES (30.6ML/KG). START FORMULA AT 20ML/HR AND INCREASE BY 10ML Q 4 HRS UNTIL MAX GOAL IS ACHIEVED. PT IS AT RISK FOR RE-FEEDING R/T POOR PO INTAKE X 3 MONTHS-WATCH K+, MG, AND PHOS MONITOR FOR TOLERANCE, RESIDUALS AND LYTES. CAN CHANGE FORMULA AT TIME OF DISCHARGE IF NEEDED BASED ON FORMULARY OF HOME CARE [email or web address].
[2023-06-20] MEDS: Potassium Chloride Packet 20 MEQ PACKET 40 MEQ G-TUBE ×2 (11:07→17:46)
[2023-06-20 13:11] VITALS: O2SAT 93
[2023-06-20] MEDS: Sucralfate Oral Suspension 1 GM/10 ML ORAL.SUSP PO ×3 (13:11→20:32)
--- NOTE | 2023-06-20 13:55 | MHC.CM.PN ---
This scientific technical writer met patient and SO re: discharge planning. Patient and SO agree to a couple RN visits. SO is an RN and is comfortable doing pt's feeds. Per patient referral sent to [facility] for RN visits. [facility] for feeding supplies.
[2023-06-20 19:48] LABS: Vancomycin Random 12.8 mcg/mL (15-20)
--- NOTE | 2023-06-20 20:21 | HE.PHANOTE ---
VANCO DOSE ADJUSTMENT BASED ON TROUGH DOSE CONTINUED AT 06/21 @ 1700
[2023-06-21] MEDS: Morphine Sulfate 4 MG/ML CARTRIDGE 3 MG IVPUSH ×2 (02:12→21:46)
[2023-06-21] MEDS: Potassium Chloride Packet 20 MEQ PACKET 40 MEQ G-TUBE (02:12)
[2023-06-21 04:06] VITALS: BP 135/85; PULSE 85; RESP 16; TEMP 36; O2SAT 94
[2023-06-21] MEDS: Piperacillin Sodium/Tazobactam 3.375 GM in 0.9 % Sodium Chloride 50 ML IV (05:33)
[2023-06-21] MEDS: Pantoprazole Sodium 40 MG/10 ML VIAL IVPUSH ×2 (05:37→16:38)
[2023-06-21] MEDS: Levothyroxine Sodium 50 MCG TABLET PO (05:40)
[2023-06-21] MEDS: oxyCODONE HCl Immed Release 5 MG TABLET PO ×3 (05:40→17:44)
[2023-06-21] MEDS: vancomycin HCL 1,250 MG in 0.9 % Sodium Chloride 250 ML 166.67 MG IV (06:14)
[2023-06-21 06:20] LABS: Creatinine Clr Calc Pharmacy 72.1; Estimated Glomerular Filt Rate > 60
[2023-06-21 07:35] VITALS: BP 135/86; PULSE 78; RESP 16; TEMP 36.6; O2SAT 94
[2023-06-21] MEDS: Sucralfate Oral Suspension 1 GM/10 ML ORAL.SUSP PO ×4 (08:06→20:27)
[2023-06-21 10:48] LABS: Magnesium 2.1 mg/dL (1.6-2.6); Phosphorus 1.3 mg/dL (2.7-4.5)
--- NOTE | 2023-06-21 13:12 | PM.DS ---
DS: Providers Provider Date of Service: 06/22/23 Date of admission: 06/18/23 15:37 Primary care physician: KORI Gtz Consults: 06/18/23 15:40 Consult to Gastroenterology Routine Consulting Provider: Gloria Chamorro Reason for consultation: gastric cancer Consult to Hematology / Oncology Routine Consulting Provider: Delfino Iglesias Reason for consultation: new gastric cancer 06/18/23 16:11 Consult to Thoracic Surgery Routine Consulting Provider[place] [facility] [place] [facility] Reason for consultation: ?leak s/p esophageal stricture dilitation DS: Diagnosis Discharge Diagnosis (1) Dysphagia: Status: Acute (2) Esophageal cancer: Status: Acute DS: Summary Hospital Course Hospital Course: 57 year old male with history of throat cancer, hypothyroidism, and newly diagnosed SCC stomach presented to the ED for evaluation of dysphagia and po intolerance. States symptoms have been going on for about 3 months but over the last week and not been able to eat or drink much over the last week. He has been following with GI and has had multiple dilitations of what was thought to be an esophageal stricture. However, recent biopsy on 06/07 showed invasive SCC. He has not yet established with an oncologist. On arrival, VSS. Mild leukocytosis 13.1. Creat 1.45, baseline 0.83. BUN 43, Na 148, Cl 109, Ca 10.9, lytes otherwise WNL. CT chest w/ contrast and CT abd/pelvis w/ contrast ordered showing distended esophageal with fluid likely 2/2 stricture or narrowing at GE junction. There is also abnormal aortocaval and GE junction lymphadenopathy and curvilinear structure along lesser curvature of stomach extending to body of stomach, likely hematoma or seroma from recent dilitation. There is also previously noted esophageal cancer extending inferiorly to GE junction. Chest CT unremarkable. Seen by GI in the ED. Hospital course: Patient presented with dysphagia in setting of history of throat cancer and now stomach cancer, Barium study showed Severe stricture of the distal esophagus at the GE junction with only a small amount of oral contrast passing into the stomach. No evidence of perforation. He underwent open G-tube placement on 06/19/23 and started on Tube feed which he is tolerating thus, Oncology (Dr. Iglesias) will arrange for outpatient PEG and further treatment of stomach cancer. Had hypokalemia and Hypophosphetemia that have been corrected, Phos is 1.9 will discharge with supplement and repeat lab in a week Time Spent with Patient Time attestation: Total time managing care of this patient today ____ minutes. Discharge coordination time: Greater than 30 minutes Quality: Safe Use of Opioids Does Pt have an Active Cancer Diagnosis on the Problem List?: No Quality: Stroke Does the patient have a stroke diagnosis?: No Physical Exam Vital Signs: Selected Entries 06/22/23 07:45 Temperature 98.4 F Pulse Rate 70 Respiratory Rate 16 Blood Pressure 144/89 H Pulse Oximetry 97 Oxygen Delivery Me thod Room Air DS: Data Data Completed and Pending Labs on day of discharge: Laboratory Results - last 24 hr 06/20/23 06/21/23 19:06 05:23 Creatinine 1.09 Estim Creat Clear Calc 72.1 Estimated GFR > 60 Phosphorus 1.3 L Magnesium 2.1 Random Vancomycin 12.8 L Preliminary micro results at discharge 06/18/23 17:49 Blood Culture - Preliminary Blood - Venous No growth after 48 hours. 06/18/23 17:46 Blood Culture - Preliminary Blood - Venous No growth after 48 hours. Discharge Plan Discharge Anticipated Discharge Date/Time: 06/22/23 08:34 Patient Disposition: Home Health Service Discharge Diagnosis: Dysphagia, esophageal stricture, gastric cancer Referrals: Audi Patino FNP-AARON [Primary Care Provider] - 1 Week Delfino Iglesias MD [Physician] - 1 Week Discharge Medications: New Phospha 250 Neutral 250 mg tablet 1 tab PO DAILY Qty: 14 0RF Continued omeprazole 20 mg capsule,delayed release(DR/EC) 20 mg PO BID Qty: 180 0RF Magic Mouthwash Diphen/Lido/Antacid 1:1:1 240 mL suspension 10 ml PO TID PRN (Reason: pain) 2 Days Qty: 240 0RF Rx Instructions: Lidocaine Viscous 2 % 80mL; diphenhydramine 12.5 mg/5 mL 80mL; aluminum-mag hydrox-simeth [id number]/5mL 80mL sucralfate 100 mg/mL suspension 10 ml PO QID 28 Days Qty: 1120 1RF levothyroxine 25 mcg tablet 50 mcg PO SUTH levothyroxine [Levo-T] 25 mcg tablet 25 mcg PO [id number] Rx Instructions: one tab daily, except on sunday and take an extra tab Discharge Orders: Discharge Order (Routine); Ordered 06/22/23 Ordered By: Naseem Somers Diet: Advance to usual diet Activity on Discharge: As tolerated Stand Alone Forms: Patient Portal Discharge page Other Ambulatory Orders: Basic Metabolic Panel (Routine) Timeframe: 1 Week Facility: [facility] - Location: Laboratory Ordered By: Naseem Somers Phosphorus (Routine) Timeframe: 1 Week Facility: [facility] - Location: Laboratory Ordered By: Naseem Somers Care Plan Goals: optimize nutrition, cancer treatment Health Concerns: gastric cancer, esophageal stricture Plan of Treatment: Tube feed as order, oral diet as tolerated, follow up with oncology fur further cancer treatment check phosphorus within a week Assessment: as above
[2023-06-21 13:36] LABS: Anion Gap 13 (12-20); Blood Urea Nitrogen 16 mg/dL (9-16); Calcium 9.8 mg/dL (8.4-10.2); Carbon Dioxide 24 mmol/L (22-29); Chloride 109 mmol/L (96-108); Glucose Random 136 mg/dL (60-115); Sodium 142 mmol/L (135-145)
[2023-06-21 15:41] VITALS: BP 133/87; PULSE 81; RESP 16; TEMP 36; O2SAT 93
--- NOTE | 2023-06-21 15:58 | MHC.CM.PN ---
DP home with [facility] for tube feeds as well as [facility]. Discharge is anticipated tomorrow. Family will provide transport home.
[2023-06-21] MEDS: 0.9 % Sodium Chloride Flush 3 ML SYRINGE IVFLUSH ×2 (16:39→19:25)
--- NOTE | 2023-06-21 16:56 | PC.NURSE ---
Pt currently tolerating sips of ice water, Pt inquiring if he can sip on apple juice. Per MD Somers, ok to sip apple juice if tolerating.
[2023-06-21] MEDS: Potassium Phosphate/NS 15 MMOL/250 ML PLAST..BAG 62.5 MMOL IV (17:34)
[2023-06-21 17:58] LABS: Vancomycin Random 17.6 mcg/mL (15-20)
[2023-06-21 19:43] VITALS: BP 150/83; PULSE 78; RESP 15; TEMP 36.4; O2SAT 93
[2023-06-22 03:22] VITALS: BP 142/90; PULSE 69; RESP 16; TEMP 36; O2SAT 94
[2023-06-22 03:27] VITALS: BP 169/86; PULSE 67; RESP 18; TEMP 36.1; O2SAT 97
[2023-06-22] MEDS: Morphine Sulfate 4 MG/ML CARTRIDGE 3 MG IVPUSH (03:45)
[2023-06-22] MEDS: Levothyroxine Sodium 25 MCG TABLET PO (06:00)
[2023-06-22] MEDS: Pantoprazole Sodium 40 MG/10 ML VIAL IVPUSH (06:00)
[2023-06-22 06:49] LABS: Creatinine Clr Calc Pharmacy 71.4; Estimated Glomerular Filt Rate > 60
[2023-06-22 07:45] VITALS: BP 144/89; PULSE 70; RESP 16; TEMP 36.9; O2SAT 97
[2023-06-22 07:46] LABS: Anion Gap 12 (12-20); Blood Urea Nitrogen 16 mg/dL (9-16); Carbon Dioxide 28 mmol/L (22-29); Chloride 108 mmol/L (96-108); Glucose Random 141 mg/dL (60-115); Magnesium 2.2 mg/dL (1.6-2.6); Phosphorus 1.9 mg/dL (2.7-4.5); Potassium 4.5 mmol/L (3.3-5.1); Sodium 143 mmol/L (135-145)
[2023-06-22] MEDS: Sucralfate Oral Suspension 1 GM/10 ML ORAL.SUSP PO (08:05)
[2023-06-22] MEDS: oxyCODONE HCl Immed Release 5 MG TABLET PO (08:07)
[2023-06-22] MEDS: 0.9 % Sodium Chloride Flush 3 ML SYRINGE IVFLUSH (08:14)
[2023-06-22] MEDS: Sodium,Potassium Phosphates POWD.PACK 2 PACKET PO (10:09)
--- NOTE | 2023-06-22 10:19 | MHC.CM.PN ---
IMM 06/22/23 Patient discharged today to home. [facility] and [facility] will provide Home services and supplies for enteral feddings. Patients will provide transport home.
[2023-06-22 11:28] VITALS: O2SAT 96
== END 2023-06-22 12:30 | disposition home health service (06) | DRG 375 ==
LOC: HO.ED 16:57 → HO.EDOVER 17:14 → HO.IMC 19:08 → HO.S3 06-19 18:01
PROVIDERS: Emergency Medicine; Internal Medicine; Physician Assistant Medical; Surgery; Admitting Provider Physician Assistant; Emergency Provider Emergency Medicine; PCP Nurse Practitioner Family; Visit Provider Internal Medicine
PROC: 0DH60UZ Insertion of Feeding Device into Stomach, Open Approach (ICD-10-PCS; principal; 2023-06-19 12:00)
DX: C16.8 Malignant neoplasm of overlapping sites of stomach (principal); C78.89 Secondary malignant neoplasm of other digestive organs; N17.9 Acute kidney failure, unspecified; E44.0 Moderate protein-calorie malnutrition; E03.9 Hypothyroidism, unspecified; K22.2 Esophageal obstruction; E86.0 Dehydration; I10 Essential (primary) hypertension; E83.39 Other disorders of phosphorus metabolism; E87.6 Hypokalemia; Z68.21 Body mass index [BMI] 21.0-21.9, adult; Z98.1 Arthrodesis status; Z85.810 Personal history of malignant neoplasm of tongue; Z87.891 Personal history of nicotine dependence; Z79.890 Hormone replacement therapy; Z79.899 Other long term (current) drug therapy
CPT/HCPCS: 36415; 71260; 74177; 74246; 80048; 80053; 80202; 82565; 83605; 83735; 84100; 85025; 85027; 85610; 85730; 86850; 86900; 86901; 87040; 99285; J1170; J1643; J2250; J2270; J2405; J2543; J2795; J3010; J3370; J3371; Q9967

== ENCOUNTER → 2023-06-18 09:41 | Outpatient (BNV) | payer OTHER, SELFPAY | PROVIDERS: Emergency Provider Emergency Medicine; PCP Nurse Practitioner Family; Visit Provider Internal Medicine | DX: C15.9 Malignant neoplasm of esophagus, unspecified (principal); R13.10 Dysphagia, unspecified; Z93.1 Gastrostomy status | CPT/HCPCS: 99232 ==

== ENCOUNTER → 2023-06-18 09:41 | Outpatient (BNV) | payer OTHER, SELFPAY | PROVIDERS: Emergency Provider Emergency Medicine; PCP Nurse Practitioner Family; Visit Provider Physician Assistant | DX: C16.0 Malignant neoplasm of cardia (principal); R13.10 Dysphagia, unspecified | CPT/HCPCS: 99223; 99232; 99239 ==

== ENCOUNTER 2023-06-18 15:37 | Outpatient (BNV) | payer OTHER, SELFPAY | END 2023-06-18 15:46 | PROVIDERS: Admitting Provider Physician Assistant; Emergency Provider Emergency Medicine; PCP Nurse Practitioner Family; Visit Provider Radiology Diagnostic Radiology | DX: C15.9 Malignant neoplasm of esophagus, unspecified (principal) | CPT/HCPCS: 74246 ==

== ENCOUNTER → 2023-06-18 15:37 | Outpatient (BNV) | payer OTHER, SELFPAY | PROVIDERS: Admitting Provider Physician Assistant; Emergency Provider Emergency Medicine; PCP Nurse Practitioner Family; Visit Provider Surgery | DX: R13.10 Dysphagia, unspecified (principal); C15.9 Malignant neoplasm of esophagus, unspecified; Z09 Encounter for follow-up examination after completed treatment for conditions other than malignant neoplasm; E83.39 Other disorders of phosphorus metabolism | CPT/HCPCS: 43832; 99024; 99223 ==

== ENCOUNTER → 2023-06-18 15:37 | Outpatient (BNV) | payer OTHER, SELFPAY | PROVIDERS: Admitting Provider Physician Assistant; Emergency Provider Emergency Medicine; PCP Nurse Practitioner Family; Visit Provider Internal Medicine Medical Oncology | DX: C16.0 Malignant neoplasm of cardia (principal) | CPT/HCPCS: 99222 ==

== ENCOUNTER 2023-06-26 10:07 | Outpatient (REF) | payer OTHER, SELFPAY ==
--- NOTE | ~2023-06-26 | PE_ITS ---
EXAMINATION: Fluorine-18 FDG PET/CT Scan CLINICAL INDICATION: Initial treatment management. Squamous cell carcinoma of the esophagus and stomach, initial staging. PROCEDURE: 55 minutes following the intravenous administration of 18.7 mCi of fluorine 18 FDG, images from the base of the skull to the mid thighs were obtained using a combined PET/CT scanner with CT scan based attenuation correction. No oral contrast was administered. No intravenous contrast was administered. Transverse, coronal, sagittal, and volume reconstruction projections were obtained. The patient's blood glucose as determined by a finger stick, was 97 mg/dl immediately prior to injection. Total CT exam dose-length product 600.82 mGy-cm * These CT images were obtained using dose optimization techniques as appropriate, variously including the following: Automated exposure control * Adjustment of mA and/or kV according to patient size (this includes techniques or standardized protocols for targeted exams where dose is matched to indication/reason for exam; i.e. extremities or head) * Use of iterative reconstruction technique COMPARISON: No previous PET/CT scan is available for comparison. The diagnostic CT scan of the chest, abdomen, and pelvis, dated 06/18/2023, is available for comparison. FINDINGS: (Slice numbers described in this report are numbered superiorly to inferiorly with slice #1 in the head) NECK AND VISUALIZED HEAD: There is an FDG avid subcentimeter left cervical level 5B (supraclavicular) lymph node, SUVmax 5.0, slice 63/311. There are no additional foci of abnormal FDG activity in the neck or visualized head. All the other activity appears physiological. No additional cervical lymphadenopathy is present. THORAX: There is an FDG avid lower paraesophageal lymph node at the T10 level showing SUVmax 4.3, slice 123/311 measuring approximately 1.5 x 1.1 cm in largest transverse dimensions, abutting the right anterolateral margin of the descending thoracic aorta. An additional right retrocrural FDG avid lymph node shows SUVmax 4.1, slice 130/311 an measuring 1.2 x 0.[address] images. There are no additional foci of abnormal FDG activity in the chest. Esophagus is dilated throughout its length, but predominantly air-filled now as opposed to the prominent fluid retention present on the 06/18/2023 CT scan. No pulmonary nodules are visualized. There is minimal apical scarring with no associated abnormal FDG activity activity. There is no additional mediastinal or axillary lymphadenopathy. There is no pleural or pericardial fluid, or pneumothorax. ABDOMEN AND PELVIS: There is intense FDG activity in the mass which extends from the gastroesophageal junction inferiorly along the lesser curvature of the stomach. This shows SUVmax 13.0, slice 140/311. The mass does not appear significantly changed from the 06/18/2023 CT scan. Bulky intensely FDG avid gastrohepatic ligament lymph nodes are present the most intense showing SUVmax 12.9 and a focus just posterior to the left lobe of the liver, slice 146/311. This intensely FDG avid lymphadenopathy extends posterior to the junction of the head and body of the pancreas right prominent portacaval lymph node shows marked FDG activity, SUVmax 12.9, slice 150/311. More inferiorly there is extensive bilateral retroperitoneal FDG avid lymphadenopathy with aortocaval focus showing SUVmax 9.9 and measuring 2.9 x 2.3 cm in largest transverse dimensions and approximately 4.8 cm cephalocaudad. Confluent left-sided retroperitoneal lymphadenopathy shows SUVmax 11.1, slice 170/311 and measures 2.2 x 1.2 cm in largest transverse dimensions and approximately 6.5 cm cephalocaudad. There is mild FDG activity in the remainder of the gastrointestinal tract, most prominently in the left colon, but without a suspicious focal component. There is diverticulosis without evidence of diverticulitis. The hollow viscera are otherwise unremarkable. The liver, spleen, kidneys, adrenal glands are unremarkable. Other than the peripancreatic FDG avid lymphadenopathy, the pancreas appears unremarkable. A gastrostomy tube is in place, new since 06/18/2023 and some mild FDG activity in the anterior abdominal wall adjacent and to the right of the gastrostomy tube is noted. No additional foci of abnormal FDG activity are present in the abdomen or pelvis. The pelvic organs are unremarkable. There is no pelvic or inguinal lymphadenopathy. Bilateral metallic clips within the scrotum are present likely from vasectomy surgery. MUSCULOSKELETAL: There are no foci of abnormal FDG activity in the osseous structures. There are degenerative changes in the spine but no suspicious sclerotic or lytic lesions are visualized. VASCULAR: A few scattered vascular calcifications are present. PET/PET CT fusion skull to thigh IMPRESSION: 1. An intensely FDG avid gastric mass is present as described above, consistent with the known diagnosis of squamous cell carcinoma. 2. Extensive FDG avid metastatic lymphadenopathy is present involving bulky lymph nodes within the gastrohepatic ligament, portacaval, peripancreatic, and retroperitoneal regions and in small foci in the distal paraesophageal and retrocrural crural regions and in a single left supraclavicular lymph node. 3. No additional foci suspicious for additional metastatic or malignant lesions are noted.
== END 2023-06-26 10:08 | disposition home or self-care (01) ==
LOC: HO.PET 10:07
PROVIDERS: PCP Nurse Practitioner Family; Visit Provider Internal Medicine Medical Oncology
DX: Z13.89 Encounter for screening for other disorder (principal)

== ENCOUNTER 2023-06-29 12:32 | Outpatient (REF) | payer OTHER, SELFPAY ==
[2023-06-29 13:24] LABS: Anion Gap 13 (12-20); Blood Urea Nitrogen 10 mg/dL (9-16); Calcium 9.6 mg/dL (8.4-10.2); Carbon Dioxide 27 mmol/L (22-29); Chloride 101 mmol/L (96-108); Estimated Glomerular Filt Rate > 60; Glucose Random 83 mg/dL (60-115); Phosphorus 3.6 mg/dL (2.7-4.5); Potassium 4.1 mmol/L (3.3-5.1); Sodium 137 mmol/L (135-145)
== END 2023-06-29 12:33 | disposition home or self-care (01) ==
LOC: HO.HVNA 12:32
PROVIDERS: Visit Provider Nurse Practitioner Family
DX: E83.39 Other disorders of phosphorus metabolism (principal)
CPT/HCPCS: 36415; 80048; 84100

== ENCOUNTER 2023-07-02 08:20 | Outpatient (RCR) | payer OTHER, SELFPAY ==
--- NOTE | 2023-06-29 14:39 | MHC.HEMONC ---
Pt will have [facility] Consultation with Dr Bailey ON 07/12/23 AT 8 AM AT [facility].
--- NOTE | 2023-07-02 08:15 | PM.HEMONCPN ---
Medical Summary - Medical Summary Date of Service: 07/02/23 Chief complaint: Follow-up for carcinoma of the esophagus. 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 Interval History Interval history: Ozzie Norton is a 57 year old gentleman, was seen in house on 06/18/23. He has a history of throat cancer, hypothyroidism, and newly diagnosed SCC esophagus stomach. He presented to the ED for evaluation of dysphagia and po intolerance. He mentioned, his symptoms have been going on for about 3 months. He tells me he had onset of symptoms in March. It initially started with difficulty swallowing liquids. It has since progressed to solids. Over the week prior to admission, he was not able to eat or drink much. He lost weight from 187 down to 147 lb. He has been following with GI and has had multiple dilatations of what was thought to be an esophageal stricture. Unfortunately, recent biopsy on 06/07 showed invasive SCC. On arrival, VSS. Mild leukocytosis 13.1. Creat 1.45, baseline 0.83. BUN 43, Na 148, Cl 109, Ca 10.9, lytes otherwise WNL. Barium swallow revealed: Severe stricture of the distal esophagus at the GE junction with only a small amount of oral contrast passing into the stomach. No evidence of perforation. CT chest w/ contrast and CT abd/pelvis w/ contrast revealed: Distended esophageal with fluid likely 2/2 stricture or narrowing at GE junction. There is also abnormal aortocaval and GE junction lymphadenopathy and curvilinear structure along lesser curvature of stomach extending to body of stomach, likely hematoma or seroma from recent dilitation. There is also previously noted esophageal cancer extending inferiorly to GE junction. Chest CT unremarkable. He is now here for a follow-up. He is an out of his oxycodone last night. He feels he is in pain. Level of 7 on 1-10 scale. He has been swallowing only sips of water. He is relying on tube feedings. These are going in continuous infusion all day, 6 cans over 24 hours, 60 mL/hour. He is constipated. His is accompanying him today. She tells me about the history of cancer of base of tongue diagnosed about 10 years ago. He was treated under the care of Dr. Schulz. Apparently he had an allergic reaction to cisplatin during his 2nd cycle. He was all red and skin was burning they had to give him an antidote and they discontinued the 3rd cycle. He completed the radiation therapy. Review of Systems Review of Systems: General: No fevers, malaise, he did have unintentional weight loss, of 40 lbs since March. He has been feeling very tired. HEENT: No blurred vision, diplopia. No sore throat, nasal congestion, rhinorrhea, sinus pain, ear pain Cardiovascular: He feels a pressure in the chest, occasional chest pain, denies palpitations, or leg edema Respiratory: No shortness of breath, wheezing, cough GI: +PO intolerance, +dysphagia. He gets epigastric pain, nausea, sometimes he has vomiting, denies diarrhea, constipation, melena, hematochezia : No dysuria, hematuria, increased urinary frequency, decreased urinary output MSK: No myalgia, back pain Neuro: No headaches, weakness, paresthesias Skin: No rashes or lesions PMFSH: Pt was seen by GI in April for difficulty swalllowing solids and weight loss. Underwent serial EGDs with dilation subsequently and eventually were able to pass the scope through the stricture on EGD 06/07 which showed malignant appearing stricture at GEJ with involvement of the gastric cardia. He is awaiting Oncology evaluation through [facility] as well as staging scans. Presented to the ER for difficulty keeping anything down, including liquids now x 2-3 days leading to severe dehydration and weakness. Was noted to be tachycardiac on exam. Labs with significant hypernatremia and TODD. EGD 06/07/23: Larynx: Fibrotic and atrophic appearance Esophagus: High grade stricture was again encountered at 45 cm which could not be traversed with XP scope. The scope was then changed out for regular gastroscope and a fixed-wire balloon was passed through the biopsy channel and then incrementally inflated from 8 mm to 10 mm. We were then able to pass the XP scope through the esophageal stricture which was 2 cm long and appeared ulcerated and friable. Spy bite forceps was passed through the XP scope and multiple biopsies were taken from the stricture. Stomach: Erythema, edema and ulceration was noted in the cardia suspicious for gastric malignancy. Spy bite forceps was passed through the XP scope and multiple biopsies were taken from the abnormal mucosa in the cardia. Duodenum: Normal duodenal mucosa to the extent visualised.? Path: A.? Stomach, cardia, biopsy: -?Invasive squamous cell carcinoma, poorly differentiated. - Background squamous epithelium and cardiac type mucosa with chronic inflammatory changes. - Negative for H. pylori. B.? Esophagus, stricture, biopsy: -?Invasive squamous cell carcinoma, poorly differentiated. - Small fragment of cardiac-type mucosa with mild chronic inactive inflammation. Cancer of Base of tongue 10 years ago. He underwent radiation and chemo at the [facility]. Under the care of Dr. Shelton and Alfredo. Depression Hypothyroid Family History: He denies any known history of cancer. Paternal Uncle Substance use disorder Paternal Uncle Substance use disorder Paternal Uncle Substance use disorder Paternal Uncle Substance use disorder Sister Substance use disorder SOCIAL HISTORY: He works on [employer]. He is . Has 2 children. He smoked half a pack a day quit 10 years ago. He used to drink heavily quit 9 years ago. Review of Systems - Constitutional Reports no additional constitutional complaints, Denies headache(s), Reports weakness, Reports weight loss - Eyes Reports no additional eye complaints - ENT Reports no additional ear, nose, mouth, and throat complaints - Cardiovascular Reports no additional cardiovascular complaints - Respiratory Reports no additional respiratory complaints - Gastrointestinal Reports no additional gastrointestinal complaints - Genitourinary Genitourinary: Reports no additional male genitourinary complaints - Musculoskeletal Reports no additional musculoskeletal complaints - Integumentary/Breasts Skin/Breast: Reports no additional skin complaints - Neurologic Reports no additional neurologic complaints - Psychiatric Reports no additional psychiatric complaints - Endocrine Reports no additional endocrine complaints - Hematologic/Lymphatic Reports no additional hematologic/lymphatic complaints - Allergic/Immunologic Reports no additional allergic/immunologic complaints [facility] Medical History: Medical History (Last Reviewed 07/02/23 @ 08:22 by Daniella Zazueta) Cancer of tongue Depression Hypothyroid Functional capacity: independent ambulation Patient : No Family History: Family History (Last Reviewed 07/02/23 @ 08:22 by Daniella Zazueta) Paternal Uncle Substance use disorder Paternal Uncle Substance use disorder Paternal Uncle Substance use disorder Paternal Uncle Substance use disorder Sister Substance use disorder Other Mental health disorder Surgical History: Surgical History (Last Reviewed 07/02/23 @ 08:22 by Daniella Zazueta) Gastrostomy tube in place History of colonoscopy History of epididymectomy History of esophagogastroduodenoscopy (EGD) History of fusion of cervical spine History of tonsillectomy Social History: Social History (Last Updated 07/02/23 @ 08:23 by Daniella Zazueta) Living Situation History: Household Members: Spouse Housing: House Are you a primary anesthesiologist and critical care to a significant other at home: No Do you presently have visiting nurse or other home services: No Alcohol History Details: 1. How often do you have a drink containing alcohol?: a. Never Tobacco History: Patient Tobacco Use Status: Former Tobacco user Tobacco use type: Cigarette e-Cigarette/Vaping Use: Never Used Second Hand Smoke Exposure: No Domestic Abuse History: Do you feel safe in your current relationship?: No Homicidal Assessment: Do you have thoughts of harming others: None Nutrition Assessment: Patient : No Occupation Assessmet: service: No Current occupational status: employed Oncology Screenings - ECOG Performance Status ECOG Performance Status: 0 Home Medications and Allergies Home Medications Medication Instructions Recorded Confirmed Type levothyroxine 25 mcg tablet 50 mcg PO SUTH 06/18/23 07/02/23 History levothyroxine 25 mcg tablet 25 mcg PO MOTUWEFRSA 06/18/23 07/02/23 History (Levo-T) Allergies Allergy/AdvReac Type Severity Reaction Status Date / Time cisplatin [CISPLATIN] Allergy Severe ANAPHYLAXIS Verified 07/02/23 08:23 adhesive tape [ADHESIVE TAPE] Allergy Intermediate BLISTER/LESTER Verified 07/02/23 08:23 H Sulfa (Sulfonamide Allergy Unknown Gastrointestinal Verified 07/02/23 08:23 Antibiotics) Upset Exam - Constitutional Present: no acute distress - Routine HEENT Exam Head: Present: normal inspection Eye: Present: normal appearance ENT: Present: mucous membranes moist - Routine Neck Exam Present: full ROM - Routine Respiratory Exam Present: CTAB - Routine Cardiovascular Exam Cardiovascular: Present: RRR, S1, S2 - Routine Abdominal Exam Present: soft, nontender - Routine Extremities Exam Present: nontender - Routine Back/Spine/Pelvis Exam Back/Spine: Present: full ROM - Routine Skin Exam Present: intact - Routine Neurological Exam Present: alert, oriented X3 - Routine Psychiatric Exam Present: normal affect Data - Labs CBC & Chem 7: 07/02/23 08:17 07/02/23 08:17 Assessment and Plan Patient Active problem list reviewed?: Yes (1) Esophageal cancer Problem details: (Esophagus + Stomach Bx = Invasive squamous cell carcinoma, poorly differentiated - 06/07/23) Status: Acute Assessment and plan: (1) Gastric malignant neoplasm Problem details: (Esophagus + Stomach Bx = Invasive squamous cell carcinoma, poorly differentiated - 06/07/23) Status: Acute Assessment and plan: This is a pleasant 57-year-old gentleman who has been diagnosed with esophageal carcinoma. Concern now is a gastric neoplasm as well. #Malignant esophageal stricture with dysphagia. -CT abd/pelvis revealed: 1. Distended esophageal with fluid most likely secondary to a stricture or narrowing at the GE junction. 2. There is abnormal aortocaval and GE junction lymphadenopathy. 3. There is a curvilinear structure along the lesser curvature of the stomach extending to the level of body of stomach. It most likely represents hematoma or seroma from recent dilation intervention of stricture. Recently diagnosed stomach cancer on endoscopy was noted. Patient has a known esophageal cancer extending inferiorly to the GE junction. 4. Scattered colonic diverticulosis without diverticulitis. 5. Unremarkable CT chest exam. Concern was for possible leak and lymphadenopathy. He was treated with IV vanco and zosyn as well as IV PPI He underwent GI gastrograffin study. It revealed: Severe stricture of the distal esophagus at the GE junction with only a small amount of oral contrast passing into the stomach. No evidence of perforation. He was seen by thoracic surgery. He had the G tube placed on 06/19. He had a PET scan on 06/26, it revealed: 1. An intensely FDG avid gastric mass is present as described above, consistent with the known diagnosis of squamous cell carcinoma. 2. Extensive FDG avid metastatic lymphadenopathy is present involving bulky lymph nodes within the gastrohepatic ligament, portacaval, peripancreatic, and retroperitoneal regions and in small foci in the distal paraesophageal and retrocrural crural regions and in a single left supraclavicular lymph node. 3. No additional foci suspicious for additional metastatic or malignant lesions are noted. PLAN: He has been referred for endoscopic ultrasound, appt is on 07/11 at [facility]. He is a candidate for chemo/RT. Carboplatin and Taxol based. An appointment has been set up for radiation, for 07/[address] Griffiths. He will return for chemotherapy teaching. He will then get started, once treatment planning is done. Meanwhile I sent prescriptions for oxycodone, Zofran and Senokot. All his and his 's questions were answered to their satisfaction. Thank you, Cc: Sukumar. - Time Spent With Patient Time Spent with Patient (in minutes): 30
[2023-07-02 08:21] VITALS: BP 111/72; PULSE 73; O2SAT 98; BMI 23.1
[2023-07-02 08:23] LABS: MANUAL DIFF FLAG NO
[2023-07-02 08:26] LABS: Basophils Absolute Auto 0.1 X10*3/uL (0.0-0.2); Basophils Percent Auto 0.7 % (0-2); Eosinophils Absolute Auto 0.4 X10*3/uL (0.0-0.4); Eosinophils Percent Auto 4.3 % (0-4); Hemoglobin 12.5 g/dl (14.0-18.0); Imm Gran Abs Auto 0.04 X10*3/uL (0.00-0.03); Imm Gran Pct Auto 0.4 % (0.0-0.4); Lymphocytes Absolute Auto 1.7 X10*3/uL (1.2-4.9); Lymphocytes Percent Auto 16.9 % (20-40); Mean Corpuscular HGB Conc 32.9 g/dl (31.0-36.0); Mean Corpuscular Hemoglobin 31.6 pg (27.0-33.0); Mean Corpuscular Volume 96.2 fL (80.0-98.0); Mean Platelet Volume 10.8 fL (9.4-12.4); Monocytes Absolute Auto 0.7 X10*3/uL (0.1-1.2); Monocytes Percent Auto 7.5 % (2-11); Neutrophils Percent Auto 70.2 % (45-73); Platelet Count 277 X10*3/uL (160-400); Red Blood Count 3.95 X10*6/uL (4.60-5.80); Red Cell Distribution Width 12.1 % (11.0-16.0); White Blood Count 9.9 X10*3/uL (4.8-10.8)
[2023-07-02] MEDS: oxyCODONE HCl Immed Release 5 MG TABLET PO (08:44)
[2023-07-02 08:51] LABS: Alanine Aminotransferase 15 U/L (0-40); Alkaline Phosphatase 65 U/L (39-117); Anion Gap 14 (12-20); Aspartate Amino Transferase 18 U/L (5-37); Bilirubin Total 0.4 mg/dL (0.0-1.0); Blood Urea Nitrogen 11 mg/dL (9-16); Calcium 10.2 mg/dL (8.4-10.2); Carbon Dioxide 31 mmol/L (22-29); Chloride 99 mmol/L (96-108); Creatinine Clr Calc Pharmacy 82.4; Estimated Glomerular Filt Rate > 60; Glucose Random 89 mg/dL (60-115); Potassium 4.4 mmol/L (3.3-5.1); Sodium 140 mmol/L (135-145); Total Protein 7.3 g/dL (6.5-8.0)
--- NOTE | 2023-07-02 09:09 | MHC.HEMONCMA ---
patient seen today for esophagus ca, vss, labs, following up with provider in 2 weeks
--- NOTE | 2023-07-04 09:19 | HO.HEMONCPA ---
Addendum entered by Mary Torre 07/05/23 10:18: PA FOR EMEND [id number] APPROVED FOR 52 DOSES AUTH #[id number] DOS 07/10/23 - 07/08/24 NO PA NEEDED FOR PACLITAXEL [id number] AND CARBOPLATIN [id number] Addendum entered by Mary Torre 07/04/23 11:43: NO PA NEEDED FOR PACLITAXEL [id number] AND CARBOPLATIN [id number] PA PENDING FOR EMEND [id number] AWAITING DECISION FROM [facility] Original Note: PA PENDING FOR EMEND [id number], PACLITAXEL [id number] AND CARBOPLATIN [id number] AWAITING DECISION FROM [facility]
--- NOTE | 2023-07-04 11:13 | MHC.HEMONC ---
Patient has appointment for Endoscopic Ultrasound on Sun07/11/[address] Iglesias aware.
--- NOTE | 2023-07-11 16:23 | MHC.HEMONC ---
Dr Iglesias spoke with GI at [facility] last night regarding patient and plan is still to do endoscopic u/s today. I communicated this to pt as she was concerned that the procedure might not be able to be done with obstruction present.
--- NOTE | 2023-07-12 08:18 | HO.HEMONCPA ---
Addendum entered by Mary Torre 07/12/23 14:49: CALLED [facility] SPOKE TO [place] NO PA NEEDED FOR CT GUIDED FNA [id number] CALL REFERENCE # [id number] Original Note: PA PENDING FOR CT GUIDED FINE NEEDLE BIOPSY CPT - 65303 WAITING FOR DECISION FROM [facility]
--- NOTE | 2023-07-13 16:23 | MHC.HEMONC ---
Pt Maggi confirmed u/s guided bx on 07/16 at 1:30 in Radiology. She will have Ozzie here at 1:15. No prep needed. Dr Griffiths at [facility] Rad/Onc made appt for him to see Dr Walker, Nadeemc at [facility]. Dr Iglesias advised.
== END 2023-07-26 | disposition home or self-care (01) ==
LOC: HO.ONC 08:20
PROVIDERS: Visit Provider Internal Medicine Medical Oncology
DX: C16.0 Malignant neoplasm of cardia (principal)
CPT/HCPCS: 36415; 80053; 85025; 86850; 86900; 86901; 99214

== ENCOUNTER → 2023-07-02 08:20 | Outpatient (BNV) | payer OTHER, SELFPAY | PROVIDERS: Visit Provider Internal Medicine Medical Oncology | DX: C15.9 Malignant neoplasm of esophagus, unspecified (principal); C16.9 Malignant neoplasm of stomach, unspecified | CPT/HCPCS: 99214 ==

== ENCOUNTER 2023-07-16 13:10 | Outpatient (REF) | payer OTHER, SELFPAY ==
--- NOTE | ~2023-07-16 | US_ITS ---
EXAMINATION: US BIOPSY LYMPH NODE CLINICAL INDICATIONS: Left supraclavicular lymphadenopathy. CLINICAL CORRELATION: PET/CT 06/26/2023. TECHNIQUE: Following explaining ultrasound-guided fine-needle biopsy aspiration of left suprarenal lymph node procedure, benefits and risk, a written consent was obtained. Patient was placed supine with head extended and rotated to the right with preliminary ultrasound imaging. An optimal site was selected along the left neck above the clavicle and marked on the skin. The marked site was cleaned and draped in the usual sterile manner. 1% lidocaine was injected at the marked site. A 25-gauge needle attached to a syringe was inserted under ultrasound guidance in the left supracondylar lymph node and a three-pass biopsy was performed. Subsequently 2 more passes were performed for flow cytometry. Postprocedure complete hemostasis was achieved at the puncture site. Patient tolerated procedure extremely well. Simple dressing applied postprocedure. FINDINGS: There is a heterogeneous lesion/lymph node deep in the left anterior neck supraclavicular region. It measured 0.8 x 0.5 x 0.5 cm. Preliminary results were inconclusive. US/US biopsy lymph node IMPRESSION: Successful ultrasound-guided left neck lymph node aspiration biopsy performed without immediate complications. Pathology results pending.
[2023-07-16] MEDS: Lidocaine HCl 1 % MPF 5 ML VIAL SUBCUT (15:36)
== END 2023-07-16 13:11 | disposition home or self-care (01) ==
LOC: HO.US 13:10
PROVIDERS: PCP Nurse Practitioner Family; Visit Provider Internal Medicine Medical Oncology
DX: C15.9 Malignant neoplasm of esophagus, unspecified (principal)
CPT/HCPCS: 38505; 76942; 88172; 88173; 88177; 88305; 88341; 88342

== ENCOUNTER → 2023-07-16 13:15 | Outpatient (BNV) | payer OTHER, SELFPAY | PROVIDERS: PCP Nurse Practitioner Family; Visit Provider Radiology Diagnostic Radiology | DX: C77.9 Secondary and unspecified malignant neoplasm of lymph node, unspecified (principal); C15.9 Malignant neoplasm of esophagus, unspecified | CPT/HCPCS: 38505; 76942 ==

== ENCOUNTER 2023-07-18 10:44 | Outpatient (AMB) | payer OTHER, SELFPAY ==
--- NOTE | 2023-07-18 10:44 | A.OFFVIS_ITS ---
Intake Intake Visit Reasons: 4 week fu Intake Note: Ozzie presents in the office as a 4 week follow up. CC: Would like for you to look at his g tube. Allergies cisplatin [CISPLATIN] Allergy (Severe, Verified 07/18/23 10:44) ANAPHYLAXIS adhesive tape [ADHESIVE TAPE] Allergy (Intermediate, Verified 07/18/23 10:44) BLISTER/RASH Sulfa (Sulfonamide Antibiotics) Allergy (Unknown, Verified 07/18/23 10:44) Gastrointestinal Upset HPI HPI Comments History of Present Illness Details 57 y.o M with x month of dysphagia, with 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 04/23/23: Started slowly with liquids almost 4 weeks ago where he felt pressure in his chest and has now gradually progressed to the point that he is not able to eat much of solids and unable to finish his meals. Assoc with nausea, burping, heartburn, occasional vomiting. Weight loss of 20 lbs in one month. Pt used to smoke almost 10 years ago 1PPD, quit etOH 9 ago. As aforementioned, does have hx of XRT in 2014 however reports this in his upper chest. UGIS noted with high grade stricture noted in lower esophagus just above GEJ. 04/26/23 - EGD: high grade stricture. Dec ision to bring him back for dilation under fluoro. 05/03/23 - EGD w/ fluoro: TTS wire guided balloon dilation however could only inf late to 2 constance (dilation to 8 mm is at 3 constance) due to significant resistance and tearing noted. ? 05/17/23 - EGD w/ fluoro: TTS wire guided balloon dilation to 8 mm at 3 constance. XP scope still could not be passed due to edema. 05/24/23 - EGD w/ fluoro: TTS wire guided balloon dilation to 8.5 mm at 3.5 constance. Large tear with exposed muscle fibers noted. XP scope still could not be passed due to edema. 05/30/23: Pt reports no significant change in swallowing since 05/17 (had the most improvement post this dilation). Diet restricted to liquids such as boost, pudding, ice cream etc. Weight curve continues to decline however pt remains resistant to even considering a G tube at this point despite extensive discussion that not much progress has been achieved in the last [address] Chest ordered at last EGD, still pending. 06/07/23 - EGD: TTS wire guided balloon di lation from 8-10 mm followed by passage of XP scope. Malignant appearing esophageal stricture with involvement of cardia as well. Path: A. Stomach, cardia, biopsy: - Invasive squamous cell carcinoma, poor ly differentiated. - Background squamous epithelium and car diac type mucosa with chronic inflammatory changes. - Negative for H. pylori. B. Esophagus, stricture, biopsy: - Invasive squamous cell carcinoma, poor ly differentiated. - Small fragment of cardiac-type mucosa with mild chronic inactive inflammation 07/18/23: Pt seen as video visit today. Subsequent to most recent EGD had an admission for inability to tolerate any PO at all. Underwent scans to r/o localised perf which were all negative but did show aortocaval lymphadenopathy. Underwent surgical G tube placement (06/19/[address] Melendez). Now under care of Dr Iglesias (onc) and Dr Griffiths (Rad Onc, [facility]). Plan for XRT/chemo. Has port placement tmrw per his report. Of note staging PET scan also showed highly avid L supraclavicular node in addition to bulky LN in gastrohepatic ligament, portacaval, peripancreatic, and retroperitoneal regions for which he underwent biopsy 07/17/23 - results pending. [facility] Medical History Depression Hypothyroid Cancer of tongue Surgical History Gastrostomy tube in place History of epididymectomy History of colonoscopy History of fusion of cervical spine History of tonsillectomy History of esophagogastroduodenoscopy (EGD) Family History Paternal Uncle Substance use disorder Paternal Uncle Substance use disorder Paternal Uncle Substance use disorder Paternal Uncle Substance use disorder Sister Substance use disorder Other Mental health disorder Social History Household Members: Spouse Housing: House Are you a primary care transitions manager to a significant other at home: No Do you presently have visiting nurse or other home services: No Alcohol intake: never Patient Tobacco Use Status: Former Tobacco user Tobacco use type: Cigarette e-Cigarette/Vaping Use: Never Used Second Hand Smoke Exposure: No service: No Current occupational status: employed Cognitive needs: No Hearing needs: No Vision needs: No Review of Systems Const All systems reviewed & are unremarkable except as noted in HPI and below Physical Exam Vital Signs: video visit: NAD Nonicteric Speaking in full sentences Assessment & Plan Assessment & Plan (1) Esophageal cancer: Code(s): C15.9 - Malignant neoplasm of esophagus, unspecified (2) Dysphagia: Code(s): R13.10 - Dysphagia, unspecified Plan 1. Has poorly differentiated SCC of GEJ with metastatic lymphadenopathy. - Plan for XRT/chemo as above. - Nutrition through G tube. - Mainstay of treatment will be through his oncology team, but I remain avail able should any concerns arise in future. Follow up as needed. Coding Level of Care Code Est Pt Level 4 (54912) Diagnoses Esophageal cancer C15.9 Dysphagia R13.10
== END 2023-07-18 12:53 | disposition home or self-care (01) ==
LOC: HO.HGI 10:44
PROVIDERS: PCP Nurse Practitioner Family; Visit Provider Internal Medicine
DX: C15.9 Malignant neoplasm of esophagus, unspecified (principal); R13.10 Dysphagia, unspecified
CPT/HCPCS: 99214

== ENCOUNTER → 2023-07-18 10:44 | Outpatient (BNVA) | payer OTHER, SELFPAY | PROVIDERS: PCP Nurse Practitioner Family; Visit Provider Internal Medicine | DX: R13.10 Dysphagia, unspecified (principal); C01 Malignant neoplasm of base of tongue; C15.9 Malignant neoplasm of esophagus, unspecified; Z92.3 Personal history of irradiation; Z92.21 Personal history of antineoplastic chemotherapy; Z93.1 Gastrostomy status | CPT/HCPCS: 99212 ==

== ENCOUNTER 2023-07-20 23:40 | Inpatient (IN) | payer OTHER, SELFPAY ==
--- NOTE | ~2023-07-20 | CT_ITS ---
EXAMINATION: CT ANGIOGRAM HEAD CT ANGIOGRAM NECK CLINICAL INFORMATION: Reason for Exam stroke COMPARISON: Same day CT TECHNIQUE: Test bolus sequences followed by intravenous administration 70 mL of Omnipaque 350. Helical imaging was performed in the axial plane from the aortic arch to the skull vertex. Delayed postcontrast imaging of the head was also performed. The data was processed at the senior cytogenetic technologist's workstation for generation of MIP sequences. Angled MIPs and volume rendered reformatted images were also generated at an offline 3D workstation. Stenoses are assessed in accordance with Bearden et al. Quantification of Carotid Stenosis on CT Angiography. AJR 2006. 27(1):13-19. [address] CT examination was performed using dose optimization techniques as appropriate, variously including the following: *Automated exposure control *Adjustment of mA and/or kV according to patient size (this includes techniques or standardized protocols for targeted exams where dose is matched to indication/reason for exam; i.e. extremities or head) *Use of iterative reconstruction technique DLP: 1642.06 mGy-cm FINDINGS: CT HEAD: Noncontrast head CT findings discussed separately. No pathologic intra-axial enhancement or regional oligemia. CTA HEAD: There is partially reconstituted contrast opacification along the horizontal petrous ICA with reoccluded distal petrous throughout supraclinoid segments and nonocclusive thrombus at the left carotid terminus. The remainder of the anterior and posterior vasculature is widely patent. No aneurysms and no high flow vascular malformations. Timing of the contrast bolus allows assessment of the major dural venous sinuses, which all opacify normally CTA NECK: Classic 3 vessel branching pattern of the aortic arch. Origins of the great vessels are widely patent. The common carotid arteries are widely patent, noting mural thickening/fibrofatty plaque on the left. The left internal carotid artery is occluded just beyond its origin and throughout the remainder of the extracranial segment. Partially calcified atherosclerotic plaque of the right carotid bifurcation extending into the proximal right ICA contributing to 64-68% luminal narrowing. The left vertebral artery is dominant. Severe near occlusive stenosis of the bilateral vertebral artery origins. Otherwise both vertebral arteries are widely patent throughout their extracranial cervical course. CT NECK: Significant periodontal disease associated with the left maxillary second molar tooth with erosion of the overlying buccal cortex and suspected focal dehiscence along the left maxillary sinus for predisposing to odontogenic sinusitis. Fatty infiltration of the bilateral submandibular glands. Right chest wall port. Biapical pleural parenchymal scarring. Cervical spondylosis. Prior C5-C6 ACDF with solid interbody arthrodesis and multilevel fusion across hypertrophic facet arthropathy. CT/CT angio head neck stroke IMPRESSION: 1. The left internal carotid artery is occluded just beyond its origin and throughout the remainder of the extracranial segment. Partial reconstitution of the horizontal petrous segment and reoccluded distal petrous throughout supraclinoid segments with nonocclusive thrombus at the carotid terminus with corresponding hyperdense vessel sign on noncontrast head CT. 2. Severe near occlusive stenosis of the bilateral vertebral artery origins. 3. Partially calcified atherosclerotic plaque of the right carotid bifurcation extending into the proximal right ICA contributing to 64-68% luminal narrowing. These findings were communicated to Dr. Diamond on 07/21/2023 at 12:32 AM.
--- NOTE | ~2023-07-20 | US_ITS ---
EXAMINATION: US EXTRACRANIAL CAROTID DUPLEX, LEFT CLINICAL INFORMATION: Stroke. CTA showed question total left occlusion. COMPARISON: CTA neck 07/20/2023. TECHNIQUE: Real-time ultrasound and Doppler techniques (integrating B-mode 2-D vascular images, Doppler spectral analysis and color-flow Doppler imaging) were utilized to interrogate the left extracranial carotid arteries, the vertebral artery and proximal subclavian artery. The degree of stenosis is determined by criteria similar to NASCET. FINDINGS: Left Side: 1. There severe is severe atherosclerotic plaque seen in the bifurcation/proximal ICA region. 2. The common carotid artery PSV proximally is 58 cm/s and distally 44 cm/s. 3. A patent string sign is seen in the internal carotid artery with velocities of 58 cm/s systolic and 17 cm/s diastolic. 4. The proximal external carotid artery PSV is 256 cm/s. 5. The vertebral artery shows antegrade flow. 6. The subclavian artery waveforms are normal. US/US carotid duplex LT IMPRESSION: 2. LEFT: Subtotal occlusion left internal carotid artery with patent string sign in the visible cervical segments.
--- NOTE | ~2023-07-20 | CT_ITS ---
EXAMINATION: CT head for stroke CLINICAL INFORMATION: Reason for Exam ams batista COMPARISON: None. TECHNIQUE: Contiguous axial imaging was performed from the skull base to vertex without intravenous contrast. Sagittal and coronal reformatted images were obtained. This CT examination was performed using dose optimization techniques as appropriate, variously including the following: * Automated exposure control * Adjustment of mA and/or kV according to patient size (this includes techniques or standardized protocols for targeted exams where dose is matched to indication/reason for exam; i.e. extremities or head) Use of iterative reconstruction technique DLP: 763.72 mGy-cm FINDINGS: Mild generalized parenchymal volume loss. Asymmetric prominence of the right temporal horn. No territorial loss of carrington-white differentiation. Calcific plaque along the bilateral carotid siphons. Asymmetric hyperdensity of the left carotid terminus (image [id number], series 6) suspicious for hyperdense vessel sign/acute thrombus. No acute intracranial hemorrhage or extra-axial fluid collection. No mass lesion, significant mass effect, or herniation pattern. The orbits are grossly normal. Slight leftward deviation of the nasal septum abutting the left middle nasal turbinate anteriorly and rightward nasal septal deviation of the mid septum with rightward bony spur impinging on the right middle nasal turbinate. Osseous structures are intact. CT/CT head for stroke IMPRESSION: Asymmetric hyperdensity of the left carotid terminus (image [id number], series 6) suspicious for hyperdense vessel sign/acute thrombus. No definite acute territorial loss of carrington-white differentiation or acute intracranial hemorrhage. Findings were communicated to Dr Diamond on 07/21/2023 at 12:04 AM.
--- NOTE | ~2023-07-20 | XR_ITS ---
EXAMINATION: XR CHEST CLINICAL INFORMATION: Shortness of breath. COMPARISON: 07/25/2017. TECHNIQUE: Frontal view of the chest was obtained. FINDINGS: The cardiomediastinal silhouette is within normal limits and stable. A Mediport is noted with tip at the lower SVC. There is no focal lung consolidation or pleural effusion. The bony structures and soft tissues are unremarkable. XR/XR chest 1V IMPRESSION: No active cardiopulmonary disease.
--- NOTE | 2023-07-20 23:45 | ECG_ITS ---
Test Reason : STROKE PROTOCAL Blood Pressure : / mmHG Vent. Rate : 074 BPM Atrial Rate : 074 BPM P-R Int : 140 ms QRS Dur : 090 ms QT Int : 412 ms P-R-T Axes : 039 021 050 degrees QTc Int : 457 ms Normal sinus rhythm Normal ECG When compared with ECG of 11-JAN-2009 15:53, No significant change was found Referred By: Criss Diamond Electronically Signed By:STEVE AMANDA
[2023-07-20 23:49] LABS: Glucose, Whole Blood 109 mg/dL (60-115)
[2023-07-21] VITALS (29 sets, daily range): BP systolic 104–154; BP diastolic 58–81; PULSE 57–100; RESP 15–22; TEMP 36.2–37.2; O2SAT 96–100; BMI 20.7
--- NOTE | 2023-07-21 | PC.NURSE ---
PT SUPAA, from home with reporting sudden right sided weakness when sitting in recliner. reports LWKT [id number], Pt is normally independent at baseline, pt not verbal at this time, pt grunting, only responsive to painful stimuli, Stroke protocol initiated pt brought over to CAT scan. IV line placed in RAC, EMS line in LAC, Blood work collected and sent to lab.
--- NOTE | 2023-07-21 00:01 | ED.NEUROSD ---
HPI - Neuro Symptoms/Deficit General Chief Complaint: Stroke Stated Complaint: Right side weakness/difficulty speaking Time Seen by Provider: 07/20/23 23:45 History of Present Illness HPI Narrative: Patient is a 57-year-old male with a history of esophageal cancer history of esophageal stricture status post G-tube history of stomach cancer last seen normal was approximately 22:30. Patient was noted to have increasing weakness to the right side by the paramedics. Sent in for further evaluation. Sugar was greater than 100 no evidence of hypoglycemia. Patient is not on any blood thinners. He is unable to give detailed history. There was no seizure that was witnessed by paramedics. Related Data Home Medications Medication Instructions Recorded Confirmed levothyroxine 25 mcg tablet 50 mcg PO SUTH 06/18/23 07/21/23 Previous Rx's Medication Instructions Recorded Magic Mouthwash 10 ml PO TID PRN pain 2 days #240 05/03/23 Diphen/Lido/Antacid 1:1:1 240 mL mL suspension omeprazole 20 mg capsule,delayed 20 mg PO BID #180 caps 05/17/23 release ondansetron 8 mg disintegrating 8 mg PO Q8H #60 tabs 07/02/23 tablet sennosides 8.6 mg tablet (Senokot) 8.6 mg PO BID #60 tabs 07/02/23 sucralfate 100 mg/mL oral 10 ml PO QID #1,120 mL 07/06/23 suspension oxycodone 5 mg tablet 5 mg PO Q6H PRN Breakthrough Pain, 07/20/23 Moderate #60 tabs Allergies Allergy/AdvReac Type Severity Reaction Status Date / Time cisplatin [CISPLATIN] Allergy Severe ANAPHYLAXIS Verified 07/18/23 10:44 adhesive tape [ADHESIVE TAPE] Allergy Intermediate BLISTER/LESTER Verified 07/18/23 10:44 H Sulfa (Sulfonamide Allergy Unknown Gastrointestinal Verified 07/18/23 10:44 Antibiotics) Upset Review of Systems Review of Systems: Unable to obtain review of system. [facility] Past Medical History Medical History Depression Hypothyroid Cancer of tongue Surgical History Gastrostomy tube in place History of epididymectomy History of colonoscopy History of fusion of cervical spine History of tonsillectomy History of esophagogastroduodenoscopy (EGD) Family History Family History Paternal Uncle Substance use disorder Paternal Uncle Substance use disorder Paternal Uncle Substance use disorder Paternal Uncle Substance use disorder Sister Substance use disorder Other Mental health disorder Social History Social History Household Members: Spouse Housing: House Are you a primary associate director career services to a significant other at home: No Do you presently have visiting nurse or other home services: No Alcohol intake: never Patient Tobacco Use Status: Former Tobacco user Tobacco use type: Cigarette e-Cigarette/Vaping Use: Never Used Second Hand Smoke Exposure: No Advance Directives: No Advance Directives Information Provided: Yes service: No Current occupational status: employed Cognitive needs: No Hearing needs: No Vision needs: No Physical Exam Vital Signs: Vital Signs: Last Vital Signs Temp 98.1 F 07/21/23 00:15 Pulse 58 07/21/23 01:36 Resp 19 07/21/23 01:36 BP 128/66 07/21/23 01:36 Pulse Ox 99 07/21/23 01:36 O2 Del Method Room Air 07/21/23 01:36 BMI result Body Mass Index 20.7 Appearance: Lethargic, No acute distress. Eyes: Pupils round and reactive to light. Left side appeared to be slightly smaller than the right. ENT: Pharynx normal. Neck: Normal inspection. Neck supple. No lymph nodes noted. No crepitus CVS: Normal heart rate and rhythm. Pulses normal. Normal S1 and S2 Respiratory: No respiratory distress. Breath sounds normal. No Wheezing. No rales Abdomen: Soft and nontender. No rigidity. No distention. good BS x4 Skin: Skin warm and dry. Normal skin color. Normal skin turgor. Extremities: No lower extremity edema. Neurovascular intact to all extremities. No Lacerations. No Rash Neuro: Extremely lethargic barely moving all extremities. Unable to lift up arms or legs against gravity. Grimaces to pain. Medications Administered Discontinued Medications Generic Name Dose Route Start Last Admin Trade Name Freq PRN Reason Stop Dose Admin Alteplase, Recombinant 62.37 mg 07/21/23 00:49 07/21/23 01:21 Alteplase 100 Mg Vial 0.9 mg/kg (62.37 mg) 07/21/23 00:50 62.37 mg IV Administration ONCE ONE Iohexol 70 ml 07/21/23 00:01 07/21/23 00:02 Iohexol 350 Mg/Ml 100 Ml Infus..Btl IV 07/21/23 00:02 70 ml ONCE ONE Administration Medical Decision Making Medical Decision Making MDM Narrative: History of esophageal cancer history of stomach cancer presented today with having generalized malaise weakness. Initially was noted by paramedics to have right-sided weakness. On arrival in emergency department patient is diffusely weak in both upper and lower extremity. Nonverbal. I repeated the exam after patient received the CT scan of the head and CTA of the head and neck. It is essentially unchanged. Still grimaces to pain may be somewhat localized to the painful stimuli barely moving all extremities. But Stanislav cannot lift up against gravity. There is no verbal response at all. CT scan of the head was reviewed. I did not see any acute evidence of bleeding. I reviewed the finding with the radiologist Dr. Garrett. Agree that there was no acute bleed. There is no mass. There is no fracture. There is a question clot in the left carotid noted. Will further delineate using the CTA. The CTA is now done is currently pending the reading. CTA of the head showed a large occlusion in the left internal carotid vessel almost the entire carotid was occluded. Discussed with patient's will arrive in the emergency department. Definitely patient have right-sided weakness on EMS arrival. Now has bilateral arm weakness. Is lethargic. Case discussed with interventional neural surgery at [facility]. [place] patient is not a good candidate for transfer for acute interventional clot retrieval. Patient is a candidate for tPA. After a long discussion with patient's there is no history of being on blood thinners. There is no history of GI bleed despite the mass that was in his stomach. Patient had G-tube done approximately 1 month ago. Had a port done about a month ago. He had an abrupt change in mental status with an right-sided weakness earlier large vessel occlusion noted on CTA. Attempted to contact Neurology multiple times. Did not get a phone call back. Attempted to text the neurologist. No reply. After risk and benefit explained to patient's . TPA was ordered 01:44 tPA has already started. Patient's condition is unchanged neurological status is about the same case discussed with special delivery clerk patient to be admitted to the ICU. Currently in guarded condition Differential Diagnosis Differential Diagnoses: The differential diagnosis associated with the presentation includes Admission/Observation Consideration of admission/observation: Escalation of care including admission/observation considered Consult Healthcare Provider Management of the patient was discussed with: Maintenance Foreman Interventional neural surgery at [facility] Freight Brake Operator at [facility] Lab Data MDM Lab Attestation statement: I reviewed the patient's lab results. 07/21/23 00:05 07/21/23 00:05 Labs: Lab Results 07/20/23 07/21/23 07/21/23 Range/Units 23:45 00:05 00:35 WBC 8.1 (4.8-10.8) X10*3/uL RBC 2.83 L D (4.60-5.80) X10*6/uL Hgb 8.8 L D (14.0-18.0) g/dl Hct 26.5 L D (42.0-52.0) % MCV 93.6 (80.0-98.0) fL MCH 31.1 (27.0-33.0) pg MCHC 33.2 (31.0-36.0) g/dl RDW 12.1 (11.0-16.0) % Plt Count 238 (160-400) X10*3/uL MPV 10.1 (9.4-12.4) fL Immature Gran % (Auto) 0.9 H (0.0-0.4) % Neut % (Auto) 65.1 (45-73) % Lymph % (Auto) 21.1 (20-40) % [place] % (Auto) 9.4 (2-11) % Eos % (Auto) 3.1 (0-4) % Baso % (Auto) 0.4 (0-2) % Lymph # (Auto) 1.7 (1.2-4.9) X10*3/uL [place] # (Auto) 0.8 (0.1-1.2) X10*3/uL Eos # (Auto) 0.3 (0.0-0.4) X10*3/uL Baso # (Auto) 0.0 (0.0-0.2) X10*3/uL Abs Immat Gran (auto) 0.07 H (0.00-0.03) X10*3/uL Absolute Neuts (auto) 5.3 (2.0-8.3) x10*3/uL Absolute Nucleated RBC 0.000 (0.0-0.012) X10*3/uL Nucleated RBC % (auto) 0.0 (0.0-0.2) /100WBC PT 14.4 H (11.1-13.3) SEC INR 1.2 H (0.9-1.1) APTT 29.9 (26.0-36.4) SEC O2 Saturation 100.0 % ABG pH at Pt Temp 7.55 H (7.35-7.45) ABG pCO2 at Pt Temp 37 (32-45) mmHg ABG pO2 at Pt Temp 91 (83-108) mmHg ABG HCO3 32 H (22-26) mmol/L ABG Base Excess (Actual) 9.9 mmol/L Sodium 138 (135-145) mmol/L Potassium 3.9 (3.3-5.1) mmol/L Chloride 100 (96-108) mmol/L Carbon Dioxide 28 (22-29) mmol/L Anion Gap 14 (12-20) BUN 14 (9-16) mg/dL Creatinine 0.84 (0.5-1.4) mg/dL Estim Creat Clear Calc TNP Estimated GFR > 60 POC Glucose 109 (60-115) mg/dL Random Glucose 105 (60-115) mg/dL Lactic Acid (0.5-2.0) mmol/L Calcium 9.1 D (8.4-10.2) mg/dL Phosphorus 3.6 (2.7-4.5) mg/dL Magnesium 2.0 (1.6-2.6) mg/dL Total Bilirubin 0.3 (0.0-1.0) mg/dL Direct Bilirubin 0.2 (0.0-0.5) mg/dL AST 14 (5-37) U/L ALT 9 (0-40) U/L Alkaline Phosphatase 50 (39-117) U/L Total Creatine Kinase 51 (38-174) U/L Troponin I High Sens < 2.7 (<3.5-35.0) ng/L Total Protein 6.0 L (6.5-8.0) g/dL Albumin 3.2 L (3.5-5.0) g/dL Ethyl Alcohol < 10 mg/dL 07/21/23 Range/Units 00:51 WBC (4.8-10.8) X10*3/uL RBC (4.60-5.80) X10*6/uL Hgb (14.0-18.0) g/dl Hct (42.0-52.0) % MCV (80.0-98.0) fL MCH (27.0-33.0) pg MCHC (31.0-36.0) g/dl RDW (11.0-16.0) % Plt Count (160-400) X10*3/uL MPV (9.4-12.4) fL Immature Gran % (Auto) (0.0-0.4) % Neut % (Auto) (45-73) % Lymph % (Auto) (20-40) % [place] % (Auto) (2-11) % Eos % (Auto) (0-4) % Baso % (Auto) (0-2) % Lymph # (Auto) (1.2-4.9) X10*3/uL [place] # (Auto) (0.1-1.2) X10*3/uL Eos # (Auto) (0.0-0.4) X10*3/uL Baso # (Auto) (0.0-0.2) X10*3/uL Abs Immat Gran (auto) (0.00-0.03) X10*3/uL Absolute Neuts (auto) (2.0-8.3) x10*3/uL Absolute Nucleated RBC (0.0-0.012) X10*3/uL Nucleated RBC % (auto) (0.0-0.2) /100WBC PT (11.1-13.3) SEC INR (0.9-1.1) APTT (26.0-36.4) SEC O2 Saturation % ABG pH at Pt Temp (7.35-7.45) ABG pCO2 at Pt Temp (32-45) mmHg ABG pO2 at Pt Temp (83-108) mmHg ABG HCO3 (22-26) mmol/L ABG Base Excess (Actual) mmol/L Sodium (135-145) mmol/L Potassium (3.3-5.1) mmol/L Chloride (96-108) mmol/L Carbon Dioxide (22-29) mmol/L Anion Gap (12-20) BUN (9-16) mg/dL Creatinine (0.5-1.4) mg/dL Estim Creat Clear Calc Estimated GFR POC Glucose (60-115) mg/dL Random Glucose (60-115) mg/dL Lactic Acid 1.3 (0.5-2.0) mmol/L Calcium (8.4-10.2) mg/dL Phosphorus (2.7-4.5) mg/dL Magnesium (1.6-2.6) mg/dL Total Bilirubin (0.0-1.0) mg/dL Direct Bilirubin (0.0-0.5) mg/dL AST (5-37) U/L ALT (0-40) U/L Alkaline Phosphatase (39-117) U/L Total Creatine Kinase (38-174) U/L Troponin I High Sens (<3.5-35.0) ng/L Total Protein (6.5-8.0) g/dL Albumin (3.5-5.0) g/dL Ethyl Alcohol mg/dL ABG Data Attestation ABG: I personally reviewed and interpreted this ABG as follows: Interpretation: My interpretation of the patient's blood gas showed a pH is 7.55. PCO2 37 PO2 91 just acute respiratory alkalosis. No signs of CO2 retention. Independent Interpretation I performed an independent interpretation of an: EKG (My interpretation patient's EKG showed a sinus rhythm heart rate is 70 UT QRS QT see within normal limits is no acute ST segment elevation noted.) and CT Scan (CT scan of the head was grossly negative for any acute evidence of bleeding.) Radiology Impression Discussion of test interpretation with radiology: I have reviewed the radiologist's reading. Independent Historian Clinical information obtained from an independent historian. History obtained from or confirmed by: Spouse and EMS Additional history obtained through patient's bowels. Last known well time was definitely around 10 30. Patient today was able to ambulate to see his physician. External Record Review External record reviewed: Inpatient record Inpatient record reviewed. Chronic Conditions Esophageal cancer, stomach cancer NIH Stroke Scale Time: 00:15 Level of Consciousness: Not Alert; requires repeated stimulation, or strong of painful stim. Level of Consciousness Questions: Answers neither question correctly Level of Consciousness Commands: Performs neither task correctly Best Gaze: Normal Visual: No visual loss Facial Palsy: Minor paralyis Motor Arm (Right): No effort against gravity Motor Arm (Left): No effort against gravity Motor Leg (Right): No effort against gravity Motor Leg (Left): No effort against gravity Limb Ataxia: Absent Sensory: Normal Best Language: Mute, global aphasia Dysarthia: Severe dysarthria Extinction and Inattention: No abnormality Score: 24 Critical Care Time Critical Care Time Critical Care Time: Yes Total Critical Care Time: 80 Attestation: I have personally provided 80 minutes of critical care time exclusive of time spent on separately billable procedures. Time includes review of lab data, radiology results, discussion with consultants, and monitoring for potential decompensation. Interventions were performed as documented above Discharge Plan Discharge Clinical Impression: Acute CVA (cerebrovascular accident) Patient Disposition: Admitted As Inpatient
[2023-07-21] MEDS: iohexoL 350 MG/ML 100 ML INFUS..BTL 70 ML IV (00:02)
--- NOTE | 2023-07-21 00:06 | MHC.EDTECH ---
call out to Neurology asset protection representative service at [phone] OROSCO due to stroke
[2023-07-21 00:10] LABS: MANUAL DIFF FLAG NO
[2023-07-21 00:13] LABS: Basophils Percent Auto 0.4 % (0-2); Eosinophils Absolute Auto 0.3 X10*3/uL (0.0-0.4); Eosinophils Percent Auto 3.1 % (0-4); Hematocrit 26.5 % (42.0-52.0); Hemoglobin 8.8 g/dl (14.0-18.0); Imm Gran Abs Auto 0.07 X10*3/uL (0.00-0.03); Imm Gran Pct Auto 0.9 % (0.0-0.4); Lymphocytes Absolute Auto 1.7 X10*3/uL (1.2-4.9); Lymphocytes Percent Auto 21.1 % (20-40); Mean Corpuscular HGB Conc 33.2 g/dl (31.0-36.0); Mean Corpuscular Hemoglobin 31.1 pg (27.0-33.0); Mean Corpuscular Volume 93.6 fL (80.0-98.0); Mean Platelet Volume 10.1 fL (9.4-12.4); Monocytes Absolute Auto 0.8 X10*3/uL (0.1-1.2); Monocytes Percent Auto 9.4 % (2-11); Neutrophils Absolute Auto 5.3 x10*3/uL (2.0-8.3); Neutrophils Percent Auto 65.1 % (45-73); Platelet Count 238 X10*3/uL (160-400); Red Blood Count 2.83 X10*6/uL (4.60-5.80); Red Cell Distribution Width 12.1 % (11.0-16.0); White Blood Count 8.1 X10*3/uL (4.8-10.8)
[2023-07-21 00:18] LABS: INTERNATIONAL NORM RATIO 1.2 (0.9-1.1); Prothrombin Time 14.4 SEC (11.1-13.3)
[2023-07-21 00:20] LABS: Partial Thromboplastin Time 29.9 SEC (26.0-36.4)
[2023-07-21 00:24] LABS: Stroke Lab Use COMPLETE
[2023-07-21 00:29] LABS: Alanine Aminotransferase 9 U/L (0-40); Albumin Level 3.2 g/dL (3.5-5.0); Alkaline Phosphatase 50 U/L (39-117); Anion Gap 14 (12-20); Aspartate Amino Transferase 14 U/L (5-37); Bilirubin Direct 0.2 mg/dL (0.0-0.5); Bilirubin Total 0.3 mg/dL (0.0-1.0); Blood Urea Nitrogen 14 mg/dL (9-16); Calcium 9.1 mg/dL (8.4-10.2); Carbon Dioxide 28 mmol/L (22-29); Chloride 100 mmol/L (96-108); Estimated Glomerular Filt Rate > 60; Ethanol < 10 mg/dL; Glucose Random 105 mg/dL (60-115); Phosphorus 3.6 mg/dL (2.7-4.5); Potassium 3.9 mmol/L (3.3-5.1); Sodium 138 mmol/L (135-145)
--- NOTE | 2023-07-21 00:30 | PC.NURSE ---
PT not alert and oriented, pt responds to painful stimuli, Pupils not equal but reactive, right pupil larger than left, right sided facial droop noted, provider made aware. Pt goes in and out of agitation by moving his legs and arms while grunting and moaning. Pt not able to follow commands. EKG obtained and reviewed by provider.
[2023-07-21 00:38] LABS: Troponin-I High Sensitivity < 2.7 ng/L (<3.5-35.0)
[2023-07-21 00:42] LABS: ABG Base Excess 9.9 mmol/L; ABG HCO3 32 mmol/L (22-26); ABG pCO2 37 mmHg (32-45); ABG pH 7.55 (7.35-7.45); ABG pO2 91 mmHg (83-108)
[2023-07-21 01:05] LABS: Lactic Acid 1.3 mmol/L (0.5-2.0)
--- NOTE | 2023-07-21 01:18 | MHC.EDTECH ---
call out to [facility] transfer line at [phone] for possible stat transfer per DR. OROSCO due to possible Stroke
--- NOTE | 2023-07-21 01:20 | PC.NURSE ---
TPA initiated and bolus of 6.2 ml given, Infusion running per MAR, at bedside and updated with plan of care.
--- NOTE | 2023-07-21 01:20 | MHC.EDTECH ---
[facility] called back at 0043, requested to speak to Stat transfer was declined [facility] stated they did not want to intervene
--- NOTE | 2023-07-21 01:28 | MHC.EDTECH ---
[facility] called back at 0050, requested to speak to DR. OROSCO
--- NOTE | 2023-07-21 01:29 | MHC.EDTECH ---
initially called out to Neurology fire protection equipment technician service at [phone] OROSCO for Stroke Neurology fire protection equipment technician service was then called multiple times after [phone] fire protection equipment technician service called, service tried to reach [phone] fire protection equipment technician service called, service tried to reach DR. Romano [phone] fire protection equipment technician service called, service tried to call DR. Romano [phone] fire protection equipment technician service called, service tried to call DR. Romano It is now [phone], Unable to reach DR. Romano
--- NOTE | 2023-07-21 01:43 | MHC.EDTECH ---
call out to [employer] legal transcriptionist at [phone] ANA LUISA Samuel is legal transcriptionist
--- NOTE | 2023-07-21 03:31 | P.HPCC_ITS ---
History of Present Illness Date of Service: 07/21/23 Attending physician on admission: Peg Samuel Chief Complaint: right-sided weakness Patient is a 57 year old? male with a past medical history of throat cancer, esophageal stricture status post G-tube x 1 month ago,? 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 who presented to the emergency room? as a stroke alert.? Reporting right-sided weakness / difficulty speaking.? Initially was noted by paramedics to have right-sided weakness. On arrival in emergency department patient is diffusely weak in both upper and lower extremity. Nonverbal. Later becoming bilateral weakness.? CT of the head did not show acute bleed, CTA of the head showed complete occlusion in the left internal carotid vessel almost the entire carotid was occluded. ED? physician discussed patient case with interventional neuro surgery at [facility]. [place] patient is not a good candidate for transfer for acute interventional clot retrieval. Patient only candidate for tPA.? tPA given at 0120? but no neurological changes? post tPA administration.? ? Will be admitted to ICU for hemodynamic monitoring Review of Systems 2 Review of Systems: Yes Unobtainable due to mental status PMFSH Past Medical History Medical History Depression Hypothyroid Cancer of tongue Family History Family History Paternal Uncle Substance use disorder Paternal Uncle Substance use disorder Paternal Uncle Substance use disorder Paternal Uncle Substance use disorder Sister Substance use disorder Other Mental health disorder Surgical History Surgical History Gastrostomy tube in place History of epididymectomy History of colonoscopy History of fusion of cervical spine History of tonsillectomy History of esophagogastroduodenoscopy (EGD) Social History Social History Household Members: Spouse Housing: House Are you a primary director long term care to a significant other at home: No Do you presently have visiting nurse or other home services: Yes (Lyly LAGUNAS once a week nurse visit) Alcohol intake: never Patient Tobacco Use Status: Former Tobacco user Quit Date: 2012 Tobacco use type: Cigarette Cigarettes Per Day: 10 Years Smoked: 2 Smoked in Last 30 Days: No e-Cigarette/Vaping Use: Never Used Second Hand Smoke Exposure: No Use of substances other than those prescribed or required for medical reasons: No Currently Displaying Signs/Symptoms of Drug Intoxication Withdrawal: No Any prior treatment program specific to substance use: Yes ([facility] 10 years ago) Spiritual Healthcare Practices: Jehovah'S Witness, not practicing Advance Directives: Yes Advance Directives Information Provided: Yes Advance Directives on File: Yes Advance Directives Date on File: 07/21/23 Do you have thoughts of harming others: None Recently lost weight without trying: Yes How much weight loss: 34pounds or more Nutrition Risks: On aspiration precautions and Receiving home tube feeding or CPN Poor oral hygiene: No service: No Current occupational status: employed Cognitive needs: No Hearing needs: No Vision needs: No Meds Allergies Allergy/AdvReac Type Severity Reaction Status Date / Time cisplatin [CISPLATIN] Allergy Severe ANAPHYLAXIS Verified 07/18/23 10:44 adhesive tape [ADHESIVE TAPE] Allergy Intermediate BLISTER/LESTER Verified 07/18/23 10:44 H Sulfa (Sulfonamide Allergy Unknown Gastrointestinal Verified 07/18/23 10:44 Antibiotics) Upset Home Medications Medication Instructions Recorded Confirmed Last Taken Type levothyroxine 25 mcg tablet 50 mcg PO SUTH 06/18/23 07/21/23 06/17/23 History levothyroxine 25 mcg tablet 25 mcg PO MOTUWEFRSA 07/21/23 07/21/23 Unknown History Physical Exam 2 Vital Signs: Vital Signs: Last Vital Signs Temp 98.1 F 07/21/23 00:15 Pulse 58 07/21/23 03:06 Resp 20 07/21/23 03:06 BP 119/66 07/21/23 03:06 Pulse Ox 98 07/21/23 03:06 O2 Del Method Room Air 07/21/23 03:06 BMI result Body Mass Index 20.7 Constitutional: Obtunded, opens eyes randomly Respiratory:? Lung CTA bilaterally, no wheezes, rhonchi, or rales Cardiac: RRR, +S1/S2, no murmurs/rubs, pulses palpable and equal in all extremities Gastrointestinal: +BS, non-tender to palpation, non-distended Neurologic:? Neurological exam,? The patient is obtunded, opens eyes randomly. Bilateral eyes reactive to light, left eye more constricted than right. Motor: Significant bilateral upper extremity weakness, only withdraws to pain. Moves bilateral lower extremity randomly Sensory: Unable to do patient does not follow command Musculoskeletal: No gross deformities Skin: Scattered ecchymosis Results Labs 07/21/23 08:07 07/21/23 08:07 Labs: Laboratory Results - last 24 hr 07/20/23 07/21/23 07/21/23 23:45 00:05 00:35 MCV 93.6 MCH 31.1 MCHC 33.2 RDW 12.1 Plt Count 238 MPV 10.1 Immature Gran % (Auto) 0.9 H Neut % (Auto) 65.1 Lymph % (Auto) 21.1 [place] % (Auto) 9.4 Eos % (Auto) 3.1 Baso % (Auto) 0.4 Lymph # (Auto) 1.7 [place] # (Auto) 0.8 Eos # (Auto) 0.3 Baso # (Auto) 0.0 Abs Immat Gran (auto) 0.07 H Absolute Neuts (auto) 5.3 Absolute Nucleated RBC 0.000 Nucleated RBC % (auto) 0.0 PT 14.4 H INR 1.2 H APTT 29.9 O2 Saturation 100.0 ABG pH at Pt Temp 7.55 H ABG pCO2 at Pt Temp 37 ABG pO2 at Pt Temp 91 ABG HCO3 32 H ABG Base Excess (Actual) 9.9 Anion Gap 14 Estim Creat Clear Calc TNP Estimated GFR > 60 POC Glucose 109 Random Glucose 105 Lactic Acid Calcium 9.1 D Phosphorus 3.6 Magnesium 2.0 Total Bilirubin 0.3 Direct Bilirubin 0.2 AST 14 ALT 9 Alkaline Phosphatase 50 Total Creatine Kinase 51 Total Protein 6.0 L Albumin 3.2 L Ethyl Alcohol < 10 07/21/23 00:51 MCV MCH MCHC RDW Plt Count MPV Immature Gran % (Auto) Neut % (Auto) Lymph % (Auto) [place] % (Auto) Eos % (Auto) Baso % (Auto) Lymph # (Auto) [place] # (Auto) Eos # (Auto) Baso # (Auto) Abs Immat Gran (auto) Absolute Neuts (auto) Absolute Nucleated RBC Nucleated RBC % (auto) PT INR APTT O2 Saturation ABG pH at Pt Temp ABG pCO2 at Pt Temp ABG pO2 at Pt Temp ABG HCO3 ABG Base Excess (Actual) Anion Gap Estim Creat Clear Calc Estimated GFR POC Glucose Random Glucose Lactic Acid 1.3 Calcium Phosphorus Magnesium Total Bilirubin Direct Bilirubin AST ALT Alkaline Phosphatase Total Creatine Kinase Total Protein Albumin Ethyl Alcohol Imaging Radiologist's Impressions: Impressions Head CT 07/20/23 23:52 IMPRESSION: Asymmetric hyperdensity of the left carotid terminus (image [id number], series 6) suspicious for hyperdense vessel sign/acute thrombus. No definite acute territorial loss of carrington-white differentiation or acute intracranial hemorrhage. Findings were communicated to Dr Diamond on 07/21/2023 at 12:04 AM. Head/Neck CTA 07/21/23 00:11 IMPRESSION: 1. The left internal carotid artery is occluded just beyond its origin and throughout the remainder of the extracranial segment. Partial reconstitution of the horizontal petrous segment and reoccluded distal petrous throughout supraclinoid segments with nonocclusive thrombus at the carotid terminus with corresponding hyperdense vessel sign on noncontrast head CT. 2. Severe near occlusive stenosis of the bilateral vertebral artery origins. 3. Partially calcified atherosclerotic plaque of the right carotid bifurcation extending into the proximal right ICA contributing to 64-68% luminal narrowing. These findings were communicated to Dr. Diamond on 07/21/2023 at 12:32 AM. Chest X-Ray 07/21/23 00:50 IMPRESSION: No active cardiopulmonary disease. Assessment and Plan (1) Acute CVA (cerebrovascular accident): Status: Acute (2) Hypophosphatemia: Status: Acute (3) Esophageal cancer: Status: Acute Plan 57 year old? male with a past medical history of throat cancer, esophageal stricture status post G-tube x 1 month ago,? 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 presented with stroke-like symptoms requiring tPA Neuro:? ?Stroke- ? CTA showed complete occlusion in the left internal carotid vessel almost the entire carotid was occluded and right carotid bifurcation extending into the proximal right ICA contributing to 64-68% luminal narrowing.? Medical candidate to transfer to another facility,? post tPA with no changes in neurological status.? Follow post tPA protocol. Follow Neurology recommendation.?? Cardiac: ?No acute issues Pulmonary: ?No acute issues Renal:?No acute issues Endo:? No acute issues.? GI: No acute issues. heme/onc:? 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 radiation? next week. ? Status post G-tube and port x 1 month ago.? Sees Dr Iglesias. Misc:?? ?I personally spoke to? to ? regarding goals of care inpatient in poor prognosis.? will? like to continue full code,? until she is able to speak with patient?s son from previous marriage.? Goals of care conversation ongoing DVT: No DVT anticoagulation for 24hr post tPA Diet:? NPO Case discussed with? attending Dr. Samuel? Critical care time x 30 min? Time Spent With Patient Time: Total time managing care of this patient today ____ minutes.
--- NOTE | 2023-07-21 03:34 | PC.NURSE ---
Addendum entered by Porsha Reed 07/21/23 03:38: Pt has a G-tube in place, Pt NPO. Original Note: Pt appears to be sleeping at this time, equal and unlabored breathing, lung sounds clear, SpO2:99% RA, RR: 18, no respiratory distress noted.
--- NOTE | 2023-07-21 04:52 | PC.NURSE ---
Pt getting blood drawn, when he woke he became agitated with moans/grunts, pt able to open eyes on verbal command, and follows minimum instruction. Pt able to squeeze left hand, and wiggle/hold up left leg. Pt assisted with urinal.
[2023-07-21 04:59] LABS: D Dimer High Sensitivity 580 NG/ML
[2023-07-21 05:40] LABS: Magnesium 2.2 mg/dL (1.6-2.6); Phosphorus 3.4 mg/dL (2.7-4.5)
[2023-07-21 07:27] LABS: Glucose, Whole Blood 108 mg/dL (60-115)
[2023-07-21 08:12] LABS: MANUAL DIFF FLAG NO
[2023-07-21 08:14] LABS: Basophils Percent Auto 0.3 % (0-2); Eosinophils Absolute Auto 0.1 X10*3/uL (0.0-0.4); Eosinophils Percent Auto 0.9 % (0-4); Hemoglobin 9.6 g/dl (14.0-18.0); Imm Gran Abs Auto 0.05 X10*3/uL (0.00-0.03); Imm Gran Pct Auto 0.5 % (0.0-0.4); Lymphocytes Absolute Auto 1.2 X10*3/uL (1.2-4.9); Lymphocytes Percent Auto 11.9 % (20-40); Mean Corpuscular HGB Conc 33.1 g/dl (31.0-36.0); Mean Corpuscular Hemoglobin 31.1 pg (27.0-33.0); Mean Corpuscular Volume 93.9 fL (80.0-98.0); Mean Platelet Volume 10.1 fL (9.4-12.4); Monocytes Absolute Auto 0.7 X10*3/uL (0.1-1.2); Monocytes Percent Auto 6.7 % (2-11); Neutrophils Absolute Auto 8.2 x10*3/uL (2.0-8.3); Neutrophils Percent Auto 79.7 % (45-73); Platelet Count 285 X10*3/uL (160-400); Red Blood Count 3.09 X10*6/uL (4.60-5.80); Red Cell Distribution Width 12.2 % (11.0-16.0); White Blood Count 10.3 X10*3/uL (4.8-10.8)
[2023-07-21 08:14] LABS: VBG Base Excess 7.4 mmol/L; VBG HCO3 31 mmol/L (22-26); VBG pCO2 40 mmHg; VBG pH 7.49 (7.32-7.43); VBG pO2 36 mmHg
[2023-07-21 08:30] LABS: Alanine Aminotransferase 10 U/L (0-40); Albumin Level 3.9 g/dL (3.5-5.0); Alkaline Phosphatase 61 U/L (39-117); Anion Gap 14 (12-20); Aspartate Amino Transferase 13 U/L (5-37); Bilirubin Total 0.4 mg/dL (0.0-1.0); Blood Urea Nitrogen 17 mg/dL (9-16); Calcium 9.7 mg/dL (8.4-10.2); Carbon Dioxide 28 mmol/L (22-29); Chloride 103 mmol/L (96-108); Estimated Glomerular Filt Rate > 60; Glucose Random 116 mg/dL (60-115); Potassium 4.1 mmol/L (3.3-5.1); Sodium 141 mmol/L (135-145)
--- NOTE | 2023-07-21 08:53 | PHA.MEDREC ---
Pharmacy Consult ? Medication Reconciliation Pharmacy has completed the medication reconciliation.
[2023-07-21 11:24] LABS: Glucose, Whole Blood 90 mg/dL (60-115)
[2023-07-21 11:36] LABS: Venous Blood Gas Refer to POC result
[2023-07-21 11:42] LABS: Appearance Urine Turbid; Color Urine Yellow; Glucose Urine UA Negative (Negative); Leukocyte Esterase Urine Trace (Negative); Nitrite Urine Negative (Negative); PH 8.5 (5.0-9.0); Specific Gravity - Urine 1.025 (1.005-1.025); UMIC TRIGGER UA YES; Urine Blood Negative (Negative); Urine Ketones Negative (Negative); Urine Protein Negative (Neg-Trace)
[2023-07-21 11:48] LABS: Bacteria Urine None Seen (None Seen); Hyaline Casts Urine 0-2 /LPF (0-2); RBC Urine 0-2 /HPF (0-2); Squamous Epithelial Cell Urine 0-2 /HPF (0-2); WBC Urine 0-5 /HPF (0-5)
[2023-07-21] MEDS: 0.9 % Sodium Chloride Flush 3 ML SYRINGE IVFLUSH ×3 (12:39→19:25)
--- NOTE | 2023-07-21 14:32 | P.PNCC_ITS ---
Subjective Subjective Date of Service: 07/21/23 Interval History: 57-year-old rather cachectic looking individual who has a squamous cell carcinoma at the EG junction presented with a an acute flush occlusion of the left internal carotid artery with confirmation of of no flow by a duplex ultrasound and had had an acute paresis of his right upper and right lower extremity and no clearly altered mental status as well he is responsive but lethargic least so Recently had a right-sided port put in because there was consideration for chemotherapy and radiation which is now pushed aside and what was also notable was that there was a critical ostial stenosis of both vertebral arteries and there was of at least a 70% or moderate to moderately severe stenosis of his right internal carotid artery His disease is widely metastatic as well and I did bedside echo defining normal LV and RV function with no primary valve or pericardial disease but clearly no evidence of his heart in sinus rhythm being a source for embolization 90 even more antic embolization Critical Care Time (minutes): 30 Physical Exam 2 Vital Signs: Vital Signs: Last Vital Signs Temp 98.9 F 07/21/23 12:00 Pulse 69 07/21/23 14:00 Resp 19 07/21/23 14:00 BP 114/65 07/21/23 14:00 Pulse Ox 98 07/21/23 14:00 O2 Del Method Nasal Cannula 07/21/23 14:00 O2 Flow Rate 1 07/21/23 14:00 BMI result Body Mass Index 20.7 His vital signs are are stable and otherwise chest is clear no adventitious sounds no wheezing no effort Abdomen is scaphoid no organomegaly Skin is intact no breakdown Objective Data Labs 07/21/23 08:07 07/21/23 08:07 Labs: Laboratory Results - last 24 hr 07/20/23 07/21/23 07/21/23 23:45 00:05 00:35 WBC 8.1 RBC 2.83 L D Hgb 8.8 L D Hct 26.5 L D MCV 93.6 MCH 31.1 MCHC 33.2 RDW 12.1 Plt Count 238 MPV 10.1 Immature Gran % (Auto) 0.9 H Neut % (Auto) 65.1 Lymph % (Auto) 21.1 [place] % (Auto) 9.4 Eos % (Auto) 3.1 Baso % (Auto) 0.4 Lymph # (Auto) 1.7 [place] # (Auto) 0.8 Eos # (Auto) 0.3 Baso # (Auto) 0.0 Abs Immat Gran (auto) 0.07 H Absolute Neuts (auto) 5.3 Absolute Nucleated RBC 0.000 Nucleated RBC % (auto) 0.0 PT 14.4 H INR 1.2 H APTT 29.9 D-Dimer High Sensitivty 580 O2 Saturation 100.0 ABG pH at Pt Temp 7.55 H ABG pCO2 at Pt Temp 37 ABG pO2 at Pt Temp 91 ABG HCO3 32 H ABG Base Excess (Actual) 9.9 VBG pH VBG pCO2 VBG pO2 VBG HCO3 VBG O2 Saturation VBG Base Excess Sodium 138 Potassium 3.9 Chloride 100 Carbon Dioxide 28 Anion Gap 14 BUN 14 Creatinine 0.84 Estim Creat Clear Calc TNP Estimated GFR > 60 POC Glucose 109 Random Glucose 105 Lactic Acid Calcium 9.1 D Phosphorus 3.6 Magnesium 2.0 Total Bilirubin 0.3 Direct Bilirubin 0.2 AST 14 ALT 9 Alkaline Phosphatase 50 Total Creatine Kinase 51 Troponin I High Sens < 2.7 Total Protein 6.0 L Albumin 3.2 L Urine Color Urine Appearance Urine pH Ur Specific [place] Urine Protein Urine Glucose (UA) Urine Ketones Urine Blood Urine Nitrite Ur Leukocyte Esterase Urine RBC Urine WBC Ur Squamous Epith Cells Urine Bacteria Hyaline Casts Ethyl Alcohol < 10 07/21/23 07/21/23 07/21/23 00:51 04:45 07:21 WBC RBC Hgb Hct MCV MCH MCHC RDW Plt Count MPV Immature Gran % (Auto) Neut % (Auto) Lymph % (Auto) [place] % (Auto) Eos % (Auto) Baso % (Auto) Lymph # (Auto) [place] # (Auto) Eos # (Auto) Baso # (Auto) Abs Immat Gran (auto) Absolute Neuts (auto) Absolute Nucleated RBC Nucleated RBC % (auto) PT INR APTT D-Dimer High Sensitivty O2 Saturation ABG pH at Pt Temp ABG pCO2 at Pt Temp ABG pO2 at Pt Temp ABG HCO3 ABG Base Excess (Actual) VBG pH VBG pCO2 VBG pO2 VBG HCO3 VBG O2 Saturation VBG Base Excess Sodium Potassium Chloride Carbon Dioxide Anion Gap BUN Creatinine Estim Creat Clear Calc Estimated GFR POC Glucose 108 Random Glucose Lactic Acid 1.3 Calcium Phosphorus 3.4 Magnesium 2.2 Total Bilirubin Direct Bilirubin AST ALT Alkaline Phosphatase Total Creatine Kinase Troponin I High Sens Total Protein Albumin Urine Color Urine Appearance Urine pH Ur Specific [place] Urine Protein Urine Glucose (UA) Urine Ketones Urine Blood Urine Nitrite Ur Leukocyte Esterase Urine RBC Urine WBC Ur Squamous Epith Cells Urine Bacteria Hyaline Casts Ethyl Alcohol 07/21/23 07/21/23 07/21/23 08:07 08:09 10:26 WBC 10.3 RBC 3.09 L Hgb 9.6 L Hct 29.0 L MCV 93.9 MCH 31.1 MCHC 33.1 RDW 12.2 Plt Count 285 MPV 10.1 Immature Gran % (Auto) 0.5 H Neut % (Auto) 79.7 H Lymph % (Auto) 11.9 L [place] % (Auto) 6.7 Eos % (Auto) 0.9 Baso % (Auto) 0.3 Lymph # (Auto) 1.2 [place] # (Auto) 0.7 Eos # (Auto) 0.1 Baso # (Auto) 0.0 Abs Immat Gran (auto) 0.05 H Absolute Neuts (auto) 8.2 Absolute Nucleated RBC 0.000 Nucleated RBC % (auto) 0.0 PT INR APTT D-Dimer High Sensitivty O2 Saturation ABG pH at Pt Temp ABG pCO2 at Pt Temp ABG pO2 at Pt Temp ABG HCO3 ABG Base Excess (Actual) VBG pH 7.49 H VBG pCO2 40 VBG pO2 36 VBG HCO3 31 H VBG O2 Saturation 55.0 VBG Base Excess 7.4 Sodium 141 Potassium 4.1 Chloride 103 Carbon Dioxide 28 Anion Gap 14 BUN 17 H Creatinine 0.77 Estim Creat Clear Calc 105.0 Estimated GFR > 60 POC Glucose Random Glucose 116 H Lactic Acid Calcium 9.7 D Phosphorus Magnesium Total Bilirubin 0.4 Direct Bilirubin AST 13 ALT 10 Alkaline Phosphatase 61 Total Creatine Kinase Troponin I High Sens Total Protein 7.0 Albumin 3.9 Urine Color Yellow Urine Appearance Turbid Urine pH 8.5 Ur Specific [place] 1.025 Urine Protein Negative Urine Glucose (UA) Negative Urine Ketones Negative Urine Blood Negative Urine Nitrite Negative Ur Leukocyte Esterase Trace H Urine RBC 0-2 Urine WBC 0-5 Ur Squamous Epith Cells 0-2 Urine Bacteria None Seen Hyaline Casts 0-2 Ethyl Alcohol 07/21/23 11:10 WBC RBC Hgb Hct MCV MCH MCHC RDW Plt Count MPV Immature Gran % (Auto) Neut % (Auto) Lymph % (Auto) [place] % (Auto) Eos % (Auto) Baso % (Auto) Lymph # (Auto) [place] # (Auto) Eos # (Auto) Baso # (Auto) Abs Immat Gran (auto) Absolute Neuts (auto) Absolute Nucleated RBC Nucleated RBC % (auto) PT INR APTT D-Dimer High Sensitivty O2 Saturation ABG pH at Pt Temp ABG pCO2 at Pt Temp ABG pO2 at Pt Temp ABG HCO3 ABG Base Excess (Actual) VBG pH VBG pCO2 VBG pO2 VBG HCO3 VBG O2 Saturation VBG Base Excess Sodium Potassium Chloride Carbon Dioxide Anion Gap BUN Creatinine Estim Creat Clear Calc Estimated GFR POC Glucose 90 Random Glucose Lactic Acid Calcium Phosphorus Magnesium Total Bilirubin Direct Bilirubin AST ALT Alkaline Phosphatase Total Creatine Kinase Troponin I High Sens Total Protein Albumin Urine Color Urine Appearance Urine pH Ur Specific [place] Urine Protein Urine Glucose (UA) Urine Ketones Urine Blood Urine Nitrite Ur Leukocyte Esterase Urine RBC Urine WBC Ur Squamous Epith Cells Urine Bacteria Hyaline Casts Ethyl Alcohol Progress Note: A&P Assessment and plan (1) Acute CVA (cerebrovascular accident): Status: Acute (2) Hypophosphatemia: Status: Acute (3) Gastrostomy tube in place: Status: Acute (4) Esophageal cancer: Status: Acute (5) Acute esophageal obstruction: Status: Acute (6) Hypothyroid: Status: Acute Plan 57-year-old male with very 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 with esophageal obstruction gastrostomy tube was in place and he was tolerating feedings but presented with an acute flush occlusion of his left internal carotid artery with a large infarct no change as a result of the tPA that he had received but at this point there is nothing in O2 do in terms of the of fixing this issue because of the already complete occlusion of the vessel and this was explained to and his daughter and son that the his heels what was otherwise still a poor prognosis now of course with an added very very significant morbidity in the family the EOM after our discussion came to the conclusion that the making him DNR and DNI and then ultimately comfort measures was the was the best way to go in and arrangement will be made with hospice and patient will be transferred to regular medical bed soon to be under the auspices of hospice on comfort measures halting all definitive medical therapy as well as even feedings Quality Stroke Does the patient have a stroke diagnosis?: Yes Reason for No Anti-thrombotic by Day Two: Not indicated VTE Prior VTE?: No VTE Risk Level:: Medical - moderate - high VTE Device Contraindication: N/A - Device Ordered VTE Drug Contraindication: Treatment Not Indicated
[2023-07-21 16:39] LABS: Glucose, Whole Blood 97 mg/dL (60-115)
--- NOTE | 2023-07-21 17:00 | PM.EVENT ---
Event Note Date of Service: 07/22/23 Event Note: 57yo M with throat CA, esophageal stricture s/p G-tube, hypothyroidism, newly diagnosed SCC of esophagus not yet on chemo/radiation presented with acute R-sided weakness/aphasia, 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, not a candidate for neurointerventional treatment, given tPA without improvement Per discussion with Dr Samuel, pt transitioning to comfort measures Transfer to S3 Time Spent With Patient Time: Total time managing care of this patient today ____ minutes.
[2023-07-21] MEDS: Omeprazole/Na Bicarb Oral Susp 20 MG/10 ML UD Cup PO (18:16)
--- NOTE | 2023-07-21 18:34 | PC.NURSE ---
Pt transfer from ICU, ED PHYSICIANS, DNR/DNI, daughter at bedside. Daughter asked about Hospice services and wishing for the patient to not be in pain during the transition. Educated daughter for s/s pain, and call argueta system. Continue to monitor for needs for patient and family.
[2023-07-21] MEDS: HYDROmorphone HCl 1 MG/ML SYRINGE IVPUSH (19:25)
--- NOTE | 2023-07-22 03:12 | PC.NURSE ---
Pts daughter aDnielle Stroud phone #[phone].
[2023-07-22] MEDS: HYDROmorphone HCl 1 MG/ML SYRINGE IVPUSH ×3 (03:24→16:41)
[2023-07-22 04:00] VITALS: RESP 12
[2023-07-22] MEDS: 0.9 % Sodium Chloride Flush 3 ML SYRINGE IVFLUSH ×3 (08:44→23:29)
[2023-07-22] MEDS: LORazepam 2 MG/ML VIAL 1 MG IVPUSH ×3 (10:04→19:03)
--- NOTE | 2023-07-22 10:44 | HO.PM.IMPN ---
Subjective Subjective Date of Service: 07/22/23 Interval History: comfortable-appearing said a few words yesterday: This is crazy and daughter at bedside Review of Systems Review of Systems: Yes Unobtainable due to mental status Physical Exam Vital Signs: Vital Signs: Last Vital Signs Temp 97.2 F 07/21/23 18:42 Pulse 78 07/21/23 18:42 Resp 12 07/22/23 04:00 BP 120/58 L 07/21/23 18:42 Pulse Ox 96 07/21/23 18:42 O2 Del Method Room Air 07/21/23 18:42 O2 Flow Rate 1 07/21/23 17:00 BMI result Body Mass Index 20.7 gen: NAD lungs: non-labored breathing CV: normal peripheral perfusion, regular rate neuro: unable to assess orientation Objective Data Active Medications Hydromorphone HCl (Hydromorphone Hcl 1 Mg/Ml Syringe) 1 mg IVPUSH Q4H PRN PRN Reason: Discomfort/Shortness of breath Last Admin: 07/22/23 03:24 Dose: 1 mg Documented By: LOLA Lorazepam (Lorazepam 2 Mg/Ml Vial) 1 mg IVPUSH Q4H PRN PRN Reason: anxiety/restlessness Last Admin: 07/22/23 10:04 Dose: 1 mg Documented By: SONIDO Ondansetron HCl (Ondansetron Hcl 4 Mg/2 Ml Vial) 4 mg IVPUSH Q8H PRN PRN Reason: Nausea and Vomiting Sodium Chloride (0.9 % Sodium Chloride Flush 3 Ml Syringe) 3 ml IVFSH [facility] Last Admin: 07/22/23 08:44 Dose: 3 ml Documented By: SONIDO Labs 07/21/23 08:07 07/21/23 08:07 Labs: Laboratory Results - last 24 hr 07/21/23 07/21/23 07/21/23 10:26 11:10 16:35 POC Glucose 90 97 Urine Color Yellow Urine Appearance Turbid Urine pH 8.5 Ur Specific [place] 1.025 Urine Protein Negative Urine Glucose (UA) Negative Urine Ketones Negative Urine Blood Negative Urine Nitrite Negative Ur Leukocyte Esterase Trace H Urine RBC 0-2 Urine WBC 0-5 Ur Squamous Epith Cells 0-2 Urine Bacteria None Seen Hyaline Casts 0-2 Assessment and Plan (1) Acute CVA (cerebrovascular accident): Status: Acute (2) Esophageal cancer: Status: Acute Plan 57yo M with throat CA, esophageal stricture s/p G-tube, hypothyroidism, 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, not yet on chemo/radiation presented with acute R-sided weakness/aphasia, 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, not a candidate for neurointerventional treatment, given tPA and admitted to the ICU but did not make any kind of meaningfulimprovement Per family discussion with Dr Samuel, pt transitioned to comfort measures and stepped down to M/S 07/21/23 - IV hydromorphone prn pain - IV lorazepam prn agitationa - continue STUDIO OPERATIONS ENGINEER IN 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 Quality Stroke Does the patient have a stroke diagnosis?: Yes Reason for No Anti-thrombotic by Day Two: N/A - Med Ordered VTE Prior VTE?: No VTE Risk Level:: Medical - moderate - high VTE Device Contraindication: Treatment Not Indicated VTE Drug Contraindication: Treatment Not Indicated
--- NOTE | 2023-07-22 16:25 | MHC.CM.PN ---
PT NOW PROCESS TRAINER STATUS CURRENTLY THERE IS NO PLAN TO DC PT CM MET WITH PTS DAUGHTER AND EXPLAINED WHY PT WOULD NOT BE REFERRED TO HOSPICE AT THIS TIME AND WHEN IT MAY BE APPROPRIATE PTS MEDICARE RIGHTS WERE PROVIDED AND A COPY OF PTS HCP WAS REQUESTED
[2023-07-23] MEDS: LORazepam 2 MG/ML VIAL 1 MG IVPUSH ×2 (02:59→11:11)
[2023-07-23 04:00] VITALS: RESP 16
[2023-07-23] MEDS: 0.9 % Sodium Chloride Flush 3 ML SYRINGE IVFLUSH ×2 (07:48→15:09)
[2023-07-23] MEDS: HYDROmorphone HCl 1 MG/ML SYRINGE IVPUSH ×6 (09:24→22:01)
[2023-07-23 09:58] VITALS: BMI 20.7
[2023-07-23 10:46] VITALS: TEMP 40.2
--- NOTE | 2023-07-23 14:16 | HO.PM.IMPN ---
Subjective Subjective Date of Service: 07/23/23 Interval History: Appears comfortable, in no distress, no overnight events. Review of Systems Unable to obtain due to mental status Physical Exam Vital Signs: Vital Signs: Last Vital Signs Temp 104.3 F H 07/23/23 10:46 Pulse 78 07/21/23 18:42 Resp 16 07/23/23 04:00 BP 120/58 L 07/21/23 18:42 Pulse Ox 96 07/21/23 18:42 O2 Del Method Room Air 07/21/23 18:42 O2 Flow Rate 1 07/21/23 17:00 BMI result Body Mass Index 20.7 Const: Other: Gen: Appears comfortable, no respiratory distress lungs: non-labored breathing CVS: regular rate neuro: unable to assess orientation Objective Data Active Medications Hydromorphone HCl (Hydromorphone Hcl 1 Mg/Ml Syringe) 1 mg IVPUSH Q4H PRN PRN Reason: Discomfort/Shortness of breath Last Admin: 07/23/23 13:14 Dose: 1 mg Documented By: FÉLIX Lorazepam (Lorazepam 2 Mg/Ml Vial) 1 mg IVPUSH Q4H PRN PRN Reason: anxiety/restlessness Last Admin: 07/23/23 11:11 Dose: 1 mg Documented By: FÉLIX Ondansetron HCl (Ondansetron Hcl 4 Mg/2 Ml Vial) 4 mg IVPUSH Q8H PRN PRN Reason: Nausea and Vomiting Sodium Chloride (0.9 % Sodium Chloride Flush 3 Ml Syringe) 3 ml IVFLUSH [facility] Last Admin: 07/23/23 07:48 Dose: 3 ml Documented By: FÉLIX Labs 07/21/23 08:07 07/21/23 08:07 Assessment and Plan (1) Acute CVA (cerebrovascular accident): Status: Acute (2) Gastrostomy tube in place: Status: Acute Plan 57yo M with throat CA, esophageal stricture s/p G-tube, hypothyroidism, 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, not yet on chemo/radiation presented with acute R-sided weakness/aphasia, 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, not a candidate for neuro interventional treatment, given tPA and admitted to the ICU but did not make any kind of meaningfulimprovement Per family discussion with Dr Samuel, pt transitioned to comfort measures and stepped down to M/S 07/21/23 Patient appears comfortable Will place [place] catheter Continue - IV hydromorphone prn pain - IV lorazepam prn agitation - 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 Quality Stroke Does the patient have a stroke diagnosis?: Yes Reason for No Anti-thrombotic by Day Two: Not indicated VTE Prior VTE?: No VTE Risk Level:: Medical - moderate - high VTE Device Contraindication: N/A - Device Ordered VTE Drug Contraindication: Treatment Not Indicated
--- NOTE | 2023-07-23 14:46 | MHC.CM.PN ---
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
--- NOTE | 2023-07-23 15:26 | PC.NURSE ---
family at bedside asking for scopolamine patch for patient and pain med more frequently,Dr. Zuniga was notified
[2023-07-23] MEDS: Scopolamine 1.5 MG PATCH.TD.3 EAR-BEHIND (15:55)
--- NOTE | 2023-07-23 16:59 | PC.NURSE ---
report given to Regis LAUREANO
[2023-07-24] VITALS (7 sets, daily range): RESP 16–24
[2023-07-24] MEDS: 0.9 % Sodium Chloride Flush 3 ML SYRINGE IVFLUSH (00:11)
[2023-07-24] MEDS: HYDROmorphone HCl 1 MG/ML SYRINGE IVPUSH ×10 (00:11→16:33)
--- NOTE | 2023-07-24 06:10 | PC.NURSE ---
bladder scanned as ordered at 0045 for 158ml, no action taken at that time. Patient monitored and then incontinent of moderate amount of urine this am. hos up, gt feed as ordered. pt restless, and resistive to care on and off thru out this 8 hour shift.
--- NOTE | 2023-07-24 11:40 | HO.PM.IMPN ---
Subjective Subjective Date of Service: 07/24/23 Interval History: No acute distress, at bedside, no acute events overnight 100 mL dark urine in [place] bag Review of Systems Unable to obtain Physical Exam Vital Signs: Vital Signs: Last Vital Signs Temp 104.3 F H 07/23/23 10:46 Pulse 78 07/21/23 18:42 Resp 16 07/24/23 06:07 BP 120/58 L 07/21/23 18:42 Pulse Ox 96 07/21/23 18:42 O2 Del Method Room Air 07/21/23 18:42 O2 Flow Rate 1 07/21/23 17:00 BMI result Body Mass Index 20.7 Const: Other: Gen: Appears comfortable, no respiratory distress lungs: non-labored breathing CVS: regular rate neuro: unable to assess orientation Objective Data Active Medications Hydromorphone HCl (Hydromorphone Hcl 1 Mg/Ml Syringe) 1 mg IVPUSH Q2H [facility] Last Admin: 07/24/23 11:32 Dose: 1 mg Documented By: EFREN Lorazepam (Lorazepam 2 Mg/Ml Vial) 1 mg IVPUSH Q4H PRN PRN Reason: anxiety/restlessness Last Admin: 07/23/23 11:11 Dose: 1 mg Documented By: FÉLIX Ondansetron HCl (Ondansetron Hcl 4 Mg/2 Ml Vial) 4 mg IVPUSH Q8H PRN PRN Reason: Nausea and Vomiting Scopolamine (Scopolamine 1.5 Mg Patch.Td.3) 1.5 mg EAR-BEHIND Q72H [facility] Last Admin: 07/23/23 15:55 Dose: 1.5 mg Documented By: CHATA Sodium Chloride (0.9 % Sodium Chloride Flush 3 Ml Syringe) 3 ml IVFLUSH QSHIFT [facility] Last Admin: 07/24/23 07:52 Dose: Not Given Documented By: EFREN Non-Admin Reason: Previously Administered Labs 07/21/23 08:07 07/21/23 08:07 Assessment and Plan (1) Acute CVA (cerebrovascular accident): Status: Acute (2) Gastrostomy tube in place: Status: Acute Plan 57yo M with throat CA, esophageal stricture s/p G-tube, hypothyroidism, 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 Quality Stroke Does the patient have a stroke diagnosis?: Yes Reason for No Anti-thrombotic by Day Two: Not indicated VTE Prior VTE?: No VTE Risk Level:: Medical - moderate - high VTE Device Contraindication: N/A - Device Ordered VTE Drug Contraindication: Treatment Not Indicated
[2023-07-24] MEDS: LORazepam 2 MG/ML VIAL 1 MG IVPUSH ×2 (15:43→20:19)
[2023-07-24] MEDS: HYDROmorphone HCl 1 MG/ML SYRINGE 2 MG IVPUSH ×3 (18:03→22:19)
[2023-07-25 00:23] VITALS: RESP 24
[2023-07-25] MEDS: HYDROmorphone HCl 1 MG/ML SYRINGE 2 MG IVPUSH ×13 (00:23→23:54)
[2023-07-25] MEDS: LORazepam 2 MG/ML VIAL 1 MG IVPUSH ×6 (00:24→21:06)
[2023-07-25] MEDS: 0.9 % Sodium Chloride Flush 3 ML SYRINGE IVFLUSH ×4 (00:29→23:56)
[2023-07-25 01:54] VITALS: RESP 20
[2023-07-25 02:22] VITALS: RESP 20
[2023-07-25 04:26] VITALS: RESP 20
--- NOTE | 2023-07-25 11:32 | HO.PM.IMPN ---
Subjective Subjective Date of Service: 07/25/23 Interval History: Resting comfortably, no acute distress, no restlessness or agitation noted good urine output, at bedside. Review of Systems All other system reviewed and negative Physical Exam Vital Signs: Vital Signs: Last Vital Signs Temp 104.3 F H 07/23/23 10:46 Pulse 78 07/21/23 18:42 Resp 20 07/25/23 04:26 BP 120/58 L 07/21/23 18:42 Pulse Ox 96 07/21/23 18:42 O2 Del Method Room Air 07/21/23 18:42 O2 Flow Rate 1 07/21/23 17:00 BMI result Body Mass Index 20.7 Const: Other: Gen: comfortable, no respiratory distress lungs: non-labored breathing CVS: regular rate neuro: unable to assess orientation [place] with clear yellow urine Objective Data Active Medications Hydromorphone HCl (Hydromorphone Hcl 1 Mg/Ml Syringe) 1 mg IVPUSH Q1H PRN; Protocol PRN Reason: respiaratory distress Last Admin: 07/24/23 16:33 Dose: 1 mg Documented By: EFREN Hydromorphone HCl (Hydromorphone Hcl 1 Mg/Ml Syringe) 2 mg IVPUSH Q2H [facility] Last Admin: 07/25/23 09:43 Dose: 2 mg Documented By: STANISLAV Lorazepam (Lorazepam 2 Mg/Ml Vial) 1 mg IVPUSH Q4H PRN PRN Reason: anxiety/restlessness Last Admin: 07/25/23 09:06 Dose: 1 mg Documented By: STANISLAV Ondansetron HCl (Ondansetron Hcl 4 Mg/2 Ml Vial) 4 mg IVPUSH Q8H PRN PRN Reason: Nausea and Vomiting Scopolamine (Scopolamine 1.5 Mg Patch.Td.3) 1.5 mg EAR-BEHIND Q72H [facility] Last Admin: 07/23/23 15:55 Dose: 1.5 mg Documented By: CHATA Sodium Chloride (0.9 % Sodium Chloride Flush 3 Ml Syringe) 3 ml IVFLUSH QSHIFT [facility] Last Admin: 07/25/23 07:51 Dose: 3 ml Documented By: STANISLAV Labs 07/21/23 08:07 07/21/23 08:07 Assessment and Plan (1) Acute CVA (cerebrovascular accident): Status: Acute (2) Gastrostomy tube in place: Status: Acute Plan 57yo M with throat CA, esophageal stricture s/p G-tube, hypothyroidism, 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 Quality Stroke Does the patient have a stroke diagnosis?: Yes Reason for No Anti-thrombotic by Day Two: Not indicated VTE Prior VTE?: No VTE Risk Level:: Medical - moderate - high VTE Device Contraindication: N/A - Device Ordered VTE Drug Contraindication: Treatment Not Indicated
--- NOTE | 2023-07-25 14:57 | MHC.CM.PN ---
[facility] TO CONTACT TO DISCUS BEREAVEMENT OPTIONS PER HER REQUEST FOR INFORMATION.
[2023-07-25 15:20] VITALS: RESP 20
--- NOTE | 2023-07-25 15:29 | MHC.CM.PN ---
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
[2023-07-26] MEDS: LORazepam 2 MG/ML VIAL 1 MG IVPUSH ×3 (01:01→09:04)
[2023-07-26] MEDS: HYDROmorphone HCl 1 MG/ML SYRINGE 2 MG IVPUSH ×5 (01:51→09:47)
[2023-07-26] MEDS: 0.9 % Sodium Chloride Flush 3 ML SYRINGE IVFLUSH (07:52)
[2023-07-26 08:00] VITALS: RESP 22
[2023-07-26 09:11] VITALS: RESP 30
[2023-07-26] MEDS: HYDROmorphone HCl 1 MG/ML SYRINGE IVPUSH (09:11)
[2023-07-26 09:47] VITALS: RESP 30
--- NOTE | 2023-07-26 13:06 | P.CDIM_ITS ---
PROVIDER RESPONSE TEXT: To clarify, the appropriate diagnosis supported by the clinical indicators: Severe Protein Calorie Malnutrition QUERY TEXT: PHYSICIAN'S DOCUMENTATION REQUEST Date of Query: 07/25/2023 09:46 AM EDT Patient Name: Ozzie Norton Admit Date: 07/21/2023 Dear Erika Zuniga, A review of the medical record indicates additional documentation may be needed. Please review below and update the documentation accordingly. Clinical Indicators: Per Clinical Nutrition Assessment 07/23/23: Severe Malnutrition in the context of chronic illness significant weight loss x6 months and 3 months, nutrition hydration via PEG x 1 month [employer] Height: ( ) 6 FT Weight: ( ) 69.3 kg BMI: ( ) 20.7 If possible, please provide an associated diagnosis related to the abnormal BMI, such as: Underweight Weight loss Cachexia Severe Protein Calorie Malnutrition BMI is not significant Other (explain)Clinically unable to determine (explain)Thank you, Rafia Baum RN Use of terms such as suspected, likely, concern for, or probable (associated with a specific diagnosi s that is being evaluated, monitored, or treated as if it exists) are acceptable and can be coded in the inpatient se tting, when documented at the time of discharge. Please use your independent medical judgment in providing your response. THIS QUERY IS PART OF THE PERMANENT MEDICAL RECORD
--- NOTE | 2023-07-26 13:06 | PM.DDS ---
Discharge Sum: Prov Provider Primary care physician: Audi Patino, [facility] Discharge Sum: Diag Contributing Factors (1) Acute CVA (cerebrovascular accident): (2) Gastrostomy tube in place: Discharge Sum: Summary Date and Time Date of admission: 07/21/23 03:28 Summary Details: Date of Service: 07/21/23 Attending physician on admission: Peg Samuel Chief Complaint: right-sided weakness Patient is a 57 year old? male with a past medical history of throat cancer, esophageal stricture status post G-tube x 1 month ago,? 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 who presented to the emergency room? as a stroke alert.? Reporting right-sided weakness / difficulty speaking.? Initially was noted by paramedics to have right-sided weakness. On arrival in emergency department patient is diffusely weak in both upper and lower extremity. Nonverbal. Later becoming bilateral weakness.? CT of the head did not show acute bleed, CTA of the head showed complete occlusion in the left internal carotid vessel almost the entire carotid was occluded. ED? physician discussed patient case with interventional neuro surgery at [facility]. [place] patient is not a good candidate for transfer for acute interventional clot retrieval. Patient only candidate for tPA.? tPA given at 0120? but no neurological changes? post tPA administration and admitted to ICU for hemodynamic moan.? ? 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 cause of acute CVA due to left ICA occlusion newly diagnosed esophageal CA severe protein calorie malnutrition Additional Data Attending physician: Erika Zuniga MD
--- NOTE | 2023-07-26 13:15 | P.CDIM_ITS ---
PROVIDER RESPONSE TEXT: To clarify, the appropriate diagnosis supported by the clinical indicators: Due to a specified condition (such as UTI, hyponatremia, CVA, etc.) QUERY TEXT: PHYSICIAN'S DOCUMENTATION REQUEST Date of Query: 07/25/2023 09:51 AM EDT Patient Name: Ozzie Norton Admit Date: 07/21/2023 Dear Erika Zuniga, A review of the medical record indicates additional documentation may be needed. Please review below and update the documentation accordingly. 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 Please use your independent medical judgment in providing your response. THIS QUERY IS PART OF THE PERMANENT MEDICAL RECORD
== END 2023-07-26 14:48 | disposition expired | DRG 61 ==
LOC: HO.ED 07-21 01:08 → HO.EDOVER 07-21 03:36 → HO.ICU 07-21 07:01 → HO.S3 07-21 18:19
PROVIDERS: Internal Medicine Cardiovascular Disease; Admitting Provider Registered Nurse Community Health; Emergency Provider Emergency Medicine Emergency Medical Services; PCP Nurse Practitioner Family; Visit Provider Hospitalist
DX: I63.232 Cerebral infarction due to unspecified occlusion or stenosis of left carotid arteries (principal); E43 Unspecified severe protein-calorie malnutrition; C15.5 Malignant neoplasm of lower third of esophagus; G81.91 Hemiplegia, unspecified affecting right dominant side; C78.89 Secondary malignant neoplasm of other digestive organs; G93.49 Other encephalopathy; Z66 Do not resuscitate; Z51.5 Encounter for palliative care; R47.01 Aphasia; E03.9 Hypothyroidism, unspecified; E83.39 Other disorders of phosphorus metabolism; R29.724 NIHSS score 24; Z93.1 Gastrostomy status; Z98.1 Arthrodesis status; Z68.20 Body mass index [BMI] 20.0-20.9, adult; Z87.891 Personal history of nicotine dependence; Z79.890 Hormone replacement therapy; Z79.899 Other long term (current) drug therapy
CPT/HCPCS: 36415; 70450; 70496; 70498; 71045; 80048; 80053; 80076; 80307; 81001; 82550; 82803; 82947; 83605; 83735; 84100; 84484; 85025; 85379; 85610; 85730; 93005; 93882; 99285; C1758; J1170; J2060; J2997; Q9967

== ENCOUNTER → 2023-07-21 03:28 | Outpatient (BNV) | payer OTHER, SELFPAY | PROVIDERS: Admitting Provider Registered Nurse Community Health; Emergency Provider Emergency Medicine Emergency Medical Services; PCP Nurse Practitioner Family; Visit Provider Registered Nurse Community Health | DX: I63.9 Cerebral infarction, unspecified (principal); E83.39 Other disorders of phosphorus metabolism; Z93.1 Gastrostomy status; C15.9 Malignant neoplasm of esophagus, unspecified; K22.2 Esophageal obstruction; E03.9 Hypothyroidism, unspecified | CPT/HCPCS: 99291; 99499 ==

== ENCOUNTER → 2023-07-21 03:28 | Outpatient (BNV) | payer OTHER, SELFPAY | PROVIDERS: Admitting Provider Registered Nurse Community Health; Emergency Provider Emergency Medicine Emergency Medical Services; PCP Nurse Practitioner Family; Visit Provider Family Medicine | DX: I63.032 Cerebral infarction due to thrombosis of left carotid artery (principal); Z93.1 Gastrostomy status | CPT/HCPCS: 99231; 99232; 99239; 99499 ==